=== PATIENT | female | born 1955 | race Caucasian/White ===

== ENCOUNTER 2016-10-15 07:47 | Observation (INO) | payer OTHER ==
[2016-10-15] VITALS (15 sets, daily range): BP systolic 148–192; BP diastolic 62–111; PULSE 70–80; TEMP 36.3–37; O2SAT 94–97; BMI 37.0; BMI 38.3
[~2016-10-15] VITALS: Ht 165.1 cm; Wt 104.5 kg
[~2016-10-15 07:47] MED LIST: ATOR-24 PO; FLNIN NAE; INSDGIPEN SC; LOSA1TAB PO; MELA1TAB5 PO; MELO7.5T5 PO; NVLGI SC; OMEP40CA PO; ONDA4TAB46 PO; POTA10TA PO; SERT25TA PO; SYN150 PO; TAMO20TA5 PO; [UNRECOGNIZED DRUG - CODE]
[2016-10-15] MEDS ORDERED: SERT-234 PO (08:37)
[2016-10-15] MEDS ORDERED: LVMI (08:37)
[2016-10-15] MEDS ORDERED: VNTHFA/IN INH (08:37)
[2016-10-15] MEDS ORDERED: LEVO175T3 PO (08:37)
[2016-10-15] MEDS ORDERED: NiCARDipine HCL INJ 2.5 MG/ML 10 ML AMP ONE (09:28)
[2016-10-15] MEDS ORDERED: HEPARIN SOD (PORCINE) 1000 UNIT/ML 10 ML VIAL ONE (09:28)
[2016-10-15] MEDS ORDERED: MIDAZOLAM HCL 1 MG/ML 2ML VIAL ONE ×2 (09:29→10:32)
[2016-10-15] MEDS ORDERED: NITROGLYCERIN/D5W 100MCG/ML 20ML SYR ONE (09:29)
[2016-10-15] MEDS ORDERED: FENTANYL CITRATE INJ 50 MCG/1 ML 2 ML VIAL ONE (09:29)
[2016-10-15] MEDS ORDERED: EPTIFIBATIDE 0.75 MG/ML 75MG VIAL IV ONE (10:37)
[2016-10-15] MEDS ORDERED: EPTIFIBATIDE 2 MG/ML 10 ML VIAL IV ONE (10:37)
--- NOTE | 2016-10-15 10:40 | History & Physical Bridge Note ---
H&P Re-Evaluation Bridge Note: I have examined the patient, reviewed the History & Physical and in the interval since the performance of the History & Physical I have noted the following changes of clinical significance: No changes noted
--- NOTE | 2016-10-15 10:41 | Procedure Note ---
Pre-Mod Sedation Assessment General Date of Moderate Sedation: October 15, 2016. Vital Signs: Vital Signs Past 12 Hours Date Time Temp Pulse Resp B/P Pulse Ox O2 Delivery O2 Flow Rate FiO2 10/15/16 08:26 36.3 73 16 192/62 96 Room Air Review Cardiovascular: regular rate, rhythm, no edema, no murmur Abdomen: normal bowel sounds, non tender, soft, no organomegaly Lungs: chest non-tender, lungs clear, normal breath sounds Pre-Sedation Airway Assessment Short Thick Neck: Yes Hx of Sleep Apnea: Yes Smoking Status: Former Smoker Mallampati Classification: Class III ASA Classification: Class III Procedure Planning Contraindications-for Mod Sed: None Yes Notes The planned sedation has been discussed with the patient and consent obtained. I have identified the patient, determined the appropriateness of sedation and have assessed the patient immediately prior to the procedure. All medicine(s) and interventions are by my order.
--- NOTE | 2016-10-15 10:41 | Procedure Note ---
Post-Mod Sedation Assessment General Date of Moderate Sedation October 15, 2016. Vital Signs: Vital Signs Past 12 Hours Date Time Temp Pulse Resp B/P Pulse Ox O2 Delivery O2 Flow Rate FiO2 10/15/16 08:26 36.3 73 16 192/62 96 Room Air Review - Discharge Criteria Vital Signs Stable: Yes Alert/Oriented/Conversant: Yes Returned to Baseline Mental St: Yes Nausea Absent/Minimal: Yes Pain/Discomfort/Absent/Minimal: Yes Normal/Baseline Respirations: Yes Active Bleeding?: No Pt Received D/C Instructions: N/A Prescriptions Given: None Specific Proced. D/C Criteria Distal Pulses Present (Cardiac: Yes Groin site assessed-Card Cath: N/A Voided Prior To Discharge: N/A Discharged Patients Adult Escort/Transportation: N/A
--- NOTE | 2016-10-15 10:44 | Cardiac Catheterization ---
Procedure Note Procedure Date October 15, 2016. Pre-Procedure Diagnosis Angina, Cardiothoracic Symptom AUC Score 8 Post-Procedure Diagnosis Severe CAD Procedure(s) Performed Coronary Angiography (Start time 0950, Stop time 1026) Apparel Merchandiser Dr. Webber Professor Of Astronomy(s) JAMESON VANCE. Monitoring sedation IKE Verdugo Estimated Blood Loss 5cc Medication(s) Fentanyl, Heparin, Nicardipine, Nitroglycerin, Versed, Lidocaine 1% Summary of Findings Severe Lcx OM disease Hemodynamics Rest Ao: 163/80/116 Final Ao: 163/82/116 LV: N/A Specimens None Radiation Exposure (mGy) 2017 Contrast (mls) 105 Anesthesia Moderate Sedation Procedural Complication(s) None Disposition Patient remained in laboratory chemical assistant for PCI ACC Data Cardiac Status Clinical evaluation leading to the procedure CAD Presntation: Unstable angina Anginal Classification: CCS III Heart Failure: No Cardiogenic Shock w/in 24Hrs: No Cardiac Arrest w/in 24Hrs: No Imaging studies past 6 months: Yes Stress studies past 6 months: No Coronary Anatomy Left Main (% Stenosis): Normal LAD (% Stenosis): Ostial (10%), Proximal (40%), Mid (10-20% diffuse), Distal ( 30%) D1 (% Stenosis): Ostial (Diffuse mild luminal irregularities 10%) Circumflex (% Stenosis): Ostial (Small vessel with diffuse mild luminal irregularities 10%) OM1 (% Stenosis): Ostial (0%), Proximal (80%), Mid (85%), Distal (40%) RCA (% Stenosis): Ostial (0%), Proximal (20%), Mid (30%) R PDA (% Stenosis): Ostial (Diffuse mild luminal irregularities 10%) R PL1 (% Stenosis): Ostial (Diffuse mild irregularities 1)%) R PL2 (% Stenosis): Ostial (diffuse mild luminal irregularities 10%) AM (% Stenosis): Normal Diagnostic Status: Elective Closure Device Percutaneous Entry Location: Radial Closure Device: Radial Band Recommendations: PCI without planned CABG Intraprocedure Events Significant Dissection: No Perforation: No
[2016-10-15] MEDS ORDERED: CLOPIDOGREL BISULFATE 300 MG TAB PO ONE (11:54)
[2016-10-15] MEDS ORDERED: ATROPINE SULFATE 0.1 MG/ML 5ML SYR IV PRN (12:15)
[2016-10-15] MEDS ORDERED: MoRPHine SULFATE 2 MG/ML CARP IV PRN (12:15)
[2016-10-15] MEDS ORDERED: MAGNESIUM HYDROXIDE SUSP 30 ML UDC PO PRN (12:15)
[2016-10-15] MEDS ORDERED: ALUMINUM/MAGNESIUM/SIMETH (MAALOX MAX) 30 ML UDC PO PRN (12:15)
[2016-10-15] MEDS ORDERED: EPTIFIBATIDE BOLUS / DRIP IV SCH (12:15)
[2016-10-15] MEDS ORDERED: NITROGLYCERIN 0.4 MG SL PER TAB CHARGE SL PRN (12:15)
[2016-10-15] MEDS ORDERED: ALBUTEROL HFA 8 GM INHALER INH PRN (12:15)
[2016-10-15] MEDS ORDERED: ONDANSETRON INJ 2 MG/ML 2 ML VIAL IV PRN (12:15)
--- NOTE | 2016-10-15 12:40 | Procedure Note ---
Post-Mod Sedation Assessment General Date of Moderate Sedation October 15, 2016. Vital Signs: Vital Signs Past 12 Hours Date Time Temp Pulse Resp B/P Pulse Ox O2 Delivery O2 Flow Rate FiO2 10/15/16 12:13 68 16 147/65 99 Room Air 10/15/16 12:10 70 16 138/82 99 Room Air 10/15/16 12:05 60 16 148/75 98 Room Air 10/15/16 11:58 62 16 152/78 98 Room Air 10/15/16 08:26 36.3 73 16 192/62 96 Room Air Review - Discharge Criteria Vital Signs Stable: Yes Alert/Oriented/Conversant: Yes Returned to Baseline Mental St: Yes Nausea Absent/Minimal: Yes Pain/Discomfort/Absent/Minimal: Yes Normal/Baseline Respirations: Yes Active Bleeding?: No Pt Received D/C Instructions: N/A Prescriptions Given: None Specific Proced. D/C Criteria Distal Pulses Present (Cardiac: Yes Groin site assessed-Card Cath: N/A Voided Prior To Discharge: N/A Discharged Patients Adult Escort/Transportation: N/A
--- NOTE | 2016-10-15 12:58 | Cardiac Catheterization ---
Procedure Note Procedure Date October 15, 2016. Pre-Procedure Diagnosis Acute Coronary Syndrome, Angina, CAD AUC Score 8 for PCI Post-Procedure Diagnosis Successful PCI Procedure(s) Performed Coronary Angiography, PTCA, Drug Eluting Stent Tar Processing Technician Dr. Love Network Operations Manager(s) RAJIV Priest Estimated Blood Loss 30 ml for PCI procedure Medication(s) Clopidogrel (600 mg PO post PCI), Fentanyl, Heparin, Integrilin, Nicardipine, Versed, Lidocaine 1% Summary of Findings Clinical indications: Patient has diabetes mellitus, dyslipidemia, and hypertension. She has had recently worsening dyspnea on exertion as well as new episodes of dyspnea at rest. She was seen as an outpatient by Dr. Webber . An ECG was performed and revealed new inferolateral ST T wave abnormalities consistent with ischemia. Because of her symptoms and the new ECG changes she underwent diagnostic cardiac catheterization today by Dr. Webber. This was performed via a 6 Lithuanian glide sheath in the right radial artery. It revealed 80 percent proximal mid segment stenoses in a prominent left circumflex marginal artery. There was no other significant coronary artery disease. PCI equipment: 5 Lithuanian EBU 3.5 guide catheter, Medtronic Olyphant XT J-tip guidewire, Medtronic Legend RX 2.0 x 15 millimeter balloon dilatation catheter, Medtronic Resolute Integrity 2.25 x 18 millimeter and 2.75 x 30 millimeter drug eluting stents, Medtronic NC Euphora 2.5 X 12 mm balloon dilatation catheter, Alvarez NC Trek 3.25 x 15 millimeter balloon dilatation catheter. PCI protocol: Intravenous heparin and Integrilin were administered prior to coronary intervention. A therapeutic activated clotting time was documented. PTCA was 1st performed to the mid left circumflex stenosis with the Medtronic Legend balloon dilatation catheter. One inflation to 8 atmospheres for 15 seconds. The balloon was withdrawn to the proximal segment of the marginal. Inflation was then performed to 14 atmospheres for 15 seconds. The 2.25 x 18 millimeter stent was then deployed in the mid left circumflex at a pressure of 12 atmospheres for 45 seconds. A 2nd inflation was performed with the stent delivery balloon to the stent to a pressure of 16 atmospheres for duration of 10 seconds. The 2.75 x 30 millimeter stent was then deployed in the proximal marginal at a pressure of 14 atmospheres for duration of 45 seconds. A 2nd inflation was performed with the stent delivery balloon to the stent to a pressure of 16 atmospheres for duration of 15 seconds. The mid stent was post dilated with the 2.5 x 12 millimeter noncompliant balloon. Two inflations to maximum pressure of 20 atmospheres and maximum duration of 20 seconds. Post stent deployment inflations performed to the proximal marginal stent with the NC Trek 3.25 x 15 millimeter balloon to a pressure of 15 atmospheres for duration of 15 seconds. Follow-up angiography was then performed from orthogonal projections with the guidewire in place and then with the guidewire withdrawn. The patient was hemodynamically stable throughout the procedure. No arrhythmias. She had no complaints of chest discomfort or dyspnea during the procedure. Hemostasis: Terumo TR band. Complications: None. Findings: Guiding angiography revealed a long proximal left circumflex marginal stenosis. Greatest luminal diameter narrowing 80 percent. The mid marginal had an eccentric 80 percent stenosis. ALESSANDRO 3 flow. Following stent deployment and post stent deployment noncompliant balloon inflations the residual stenosis in the proximal and mid left circumflex marginal was 0-10 percent. No evidence of dissection, thrombus, perforation, or distal embolic event. ALESSANDRO 3 flow throughout the circumflex. Plan: Admit for observation overnight. Intravenous Integrilin for 6 more hours. The patient was given a loading dose of clopidogrel 600 milligrams post PCI. She will remain on aspirin, atorvastatin, and losartan. Metoprolol succinate ER 25 milligrams daily. Post Integrilin CBC. Post procedure metabolic profile. IV fluids overnight. Education and discussion regarding her radiation exposure today. She had a total of over 5000 mGy of exposure today. Outpatient cardiology follow-up with Dr. Webber. Hemodynamics Rest Ao: 163/80/116 mm Hg Final Ao: 158/65/102 mm Hg Recommendations PCI without planned CABG Specimens None Radiation Exposure (mGy) 6222 total for both diagnostic and PCI procedure Contrast (mls) 290 ml Visipaque Fluids (cc crystalloids) 255 ml Drains none Anesthesia IV versed,fentanyl Procedural Complication(s) None Disposition PCU ACC Data Cardiac Status Clinical evaluation leading to the procedure CAD Presntation: Unstable angina Anginal Classification: CCS IV Heart Failure: No Cardiogenic Shock w/in 24Hrs: No Cardiac Arrest w/in 24Hrs: No Imaging studies past 6 months: No Standard Exercise Stress Test: No Stress Echocardiogram: No Stress Testing w/SPECT MPI: No Cardiac CTA: No Coronary Anatomy Dominant: Right (See diagnostic cath report by Dr. Webber) Left Ventricular Angiography EF (%): NA Diagnostic Physician's Name: Alessandro Webber DO Closure Device Percutaneous Entry Location: Radial Closure Device: Radial Band Recommendations: PCI without planned CABG PCI Indication: Unstable Angina Lesion Segment Name: proximal left circumflex marginal Culprit Artery: Yes Stenosis Prior to Rx (%): 80 Chronic Total Occlusion: No IVUS: No FFR: No Pre-Procedure ALESSANDRO Flow: 3 Previously Treated Lesion: No Lesion Complexity: High/C Lesion Length (mm): 24 Thrombus Present: No Bifurcation Lesion: No Guidewire Across Lesion: Yes Guidewire: Stenosis Post-Procedure (%): 0-10 Post-Procedure ALESSANDRO Flow: 3 Device(s) Deployed: Yes Type of Device(s): Medtronic Resolute Integrity 2.75 X 30 mm CARLOS. Post dilated with 3.25 X 15 mm NC Trek balloon. Lesion #2 Segment Name: mid left circumflex marginal Culprit Artery: Yes Stenosis Prior to Rx (%): 80 Chronic Total Occlusion: No IVUS: No FFR: No Pre-Procedure ALESSANDRO Flow: 3 Previously Treated Lesion: No Lesion Complexity: Non-High/Non-C Lesion Length (mm): 14 Thrombus Present: No Bifurcation Lesion: No Guidewire Across Lesion: Yes Guidewire: Stenosis Post-Procedure (%): 0-10 Post-Procedure ALESSANDRO Flow: 3 Device(s) Deployed: Yes Type of Device(s): Medtronic Resolute Integrity 2.25 X 18 mm CARLOS. Post dilated with a 2.5 X 12 mm NC Euphora balloon. Intraprocedure Events Significant Dissection: No Perforation: No
[2016-10-15] MEDS ORDERED: PHARMACY GLYCEMIC MGMT CONSULT PRN (13:42)
[2016-10-15] MEDS ORDERED: GLUCOSE 10 TABS/TUBE PO PRN (14:00)
[2016-10-15] MEDS ORDERED: IV FLUIDS COMPLETED PRN (14:00)
[2016-10-15] MEDS ORDERED: GLUCOSE 40% GEL 15 GM TUBE PO PRN (14:00)
[2016-10-15] MEDS ORDERED: DEXTROSE 50% 50 ML SYR IV PRN (14:00)
[2016-10-15] MEDS ORDERED: GLUCAGON FOR INJ 1 MG VIAL SQ PRN (14:00)
--- NOTE | 2016-10-15 14:09 | Pharmacy Progress Note ---
Glycemic Control Intl Consult Date of Service October 15, 2016. Scope Glycemic Pharmacist consulted by Dr Love on 10/15/16 for glycemic control and to write orders per [facility] inpatient glycemic control protocol Objective Weight (Kilograms): 104.5 Accuchecks BSG (last 24hrs): Test 10/15/16 12:10 10/15/16 12:57 Bedside Glucose 244 mg/dl (70-90) Laboratory Data (last 24hrs) Test 10/15/16 12:10 Recent Pertinent Medications Outpatient Anti-diabetic Regimen: * Levemir 70 units at bedtime; Novolog 12 units with meals (last took 35 units of Levemir last night) Risk Factors for Insulin Resistance: * IVF: Integrillin s/p PCI * Recent Surgery: POD 0 s/p PCI * Diet: type 2 diet Assessment & Plan ASSESSMENT: * ADA & AACE recommend a goal blood sugar range 140-180 mg/dl for the majority of critically ill & non-critically ill patients. However, more stringent targets may be selected in individual cases. Will utilize more stringent goal of 110-140mg/dl based on patient age & comorbidities. Additionally, tighter glycemic control is warranted to facilitate wound/infection healing as well as for cardiac health. * Ms Salas is a 61 y/o F admitted s/p PCI on 10/15/16. After an interview with her I learned her home regimen. She does not know her A1C and does not know the last time she missed a dose. She also does not have low blood sugars. * I will start Ms Salas on a regimen that is based upon her home insulin needs of 106 units/day. I decreased her Lantus by at least 20% since she will be receiving slightly more prandial coverage as an inpatient. I will start her Levemir with dinner since she only received half of her home dose yesterday. Also an 0200 accucheck will be added to ensure adequate glycemic control is achieved. Of note, she did not receive Novolog coverage with lunch so this indicates an earlier Levemir time may be appropriate. PLAN FOR INPATIENT GLYCEMIC CONTROL: * Basal insulin with Levemir 45-55 units SQ (45 units if blood sugar < 120 mg/dL ; 50 units if blood sugar 120-160 mg/dL; 55 units if blood sugar greater than 160 mg/dL) * Correctional Insulin with NOVOLOG per scale ACHS * Goal Range: Low 110 mg/dL - High 140 mg/dL * Correction Factor: 10 mg/dL/unit * Nutritional / Prandial insulin per carb ratio of 1 unit per 4 grams CHO consumed * Please note that the plan above was derived based on current level of insulin resistance and hospital stress. These recommendations are appropriate for inpatient admission only. Plan of care upon discharge will need to be reassessed to avoid potential outpatient hypo/hyperglycemia. Thank you.
[2016-10-15 14:14] LABS: BASO % 0.9 %; BASO ABS # 0.08 K/uL (0-0.2); EOS % 4.3 %; HEMATOCRIT 36.3 % (37-47); IG% 0.2 %; LYMPH % 40.3 %; MEAN CELL VOLUME 84.6 fL (80-100); MEAN PLATELET VOLUME 10.9 fL (7.4-10.4); NEUT % 45.3 %; PLATELET COUNT 253 K/uL (130-400); RED BLOOD COUNT 4.29 M/uL (4.2-5.4); WHITE BLOOD COUNT 8.93 K/uL (4.8-10.8)
[2016-10-15 14:34] LABS: BUN/CREATININE RATIO 17.8 (10-20); CALCIUM 8.2 mg/dl (8.5-10.1); CREATININE 1.1 mg/dl (0.60-1.20); POTASSIUM 4.3 mmol/L (3.5-5.1)
[2016-10-15] MEDS ORDERED: EPTIFIBATIDE INJ 75 MG PREMIXED IV SCH (14:45)
[2016-10-15] MEDS: SODIUM CHLORIDE 0.9% 1000ML 1,000 ML IV SCH ×2 (14:52→22:15)
[2016-10-15 15:10] LABS: COMPLETE YES
[2016-10-15] MEDS ORDERED: NURSING VERBAL MED ORDER ONE ×2 (15:15→18:15)
[2016-10-15] MEDS ORDERED: LOSARTAN POTASSIUM 50 MG TAB PO ONE (15:15)
[2016-10-15] MEDS ORDERED: INSULIN DETEMIR FLEXPEN/FLEX TOUCH 100 UNITS/ML 3ML SC SCH ×2 (17:00→21:00)
[2016-10-15] MEDS ORDERED: METOPROLOL SUCC 50MG EXT REL TAB PO STA (17:18)
[2016-10-15] MEDS: INSULIN ASPART 100 UNITS/ML 3 ML PEN SC SCH ×2 (17:40→20:42)
[2016-10-15] MEDS ORDERED: LORAZEPAM 2 MG/ML 1 ML VIAL IV PRN (18:00)
[2016-10-15] MEDS ORDERED: Integrelin infusion --> STOP ORDER ONE (18:00)
[2016-10-15] MEDS ORDERED: HydrALAZINE HCL 20 MG/ML VIAL IV. PRN (18:00)
[2016-10-15] MEDS ORDERED: LORAZEPAM INJ 1 MG in SYRINGE 0.5 ML IV PRN (18:15)
[2016-10-15] MEDS: CLONAZEPAM 0.5 MG TAB PO SCH (20:31)
[2016-10-15] MEDS ORDERED: ATORVASTATIN 40 MG TAB PO SCH (21:00)
[2016-10-15] MEDS ORDERED: PANTOprazole SOD 40 MG TAB PO SCH (21:00)
[2016-10-15] MEDS ORDERED: ASPIRIN 81 MG ECTAB PO SCH (21:00)
[2016-10-15] MEDS ORDERED: CHOLECALCIFEROL 1000 INTER.UNIT TAB PO SCH (21:00)
[2016-10-15] MEDS ORDERED: FLUTICASONE PROPIONATE NA SPR 16 GM BTL NAE SCH (21:00)
[2016-10-15] MEDS ORDERED: SERTRALINE HCL 100 MG TAB PO SCH (21:00)
[2016-10-15] MEDS: ACETAMINOPHEN 325 MG TAB PO PRN (21:48)
[2016-10-15] MEDS ORDERED: PROMETHAZINE HCL INJ 12.5 MG in SODIUM CHLORIDE 0.9% 50ML 50 ML IV PRN (22:30)
[2016-10-15] MEDS ORDERED: AMLODIPINE BESYLATE 5 MG TAB PO ONE (22:30)
[2016-10-15] MEDS ORDERED: PROMETHAZINE HCL INJ 12.5 MG in SODIUM CHLORIDE 0.9% 50ML 50 ML IV STA (22:48)
[2016-10-16 00:10] VITALS: BP 164/82; PULSE 82; TEMP 36.7; O2SAT 95
[2016-10-16] MEDS ORDERED: INSULIN ASPART 100 UNITS/ML 3 ML PEN SC SCH (02:00)
[2016-10-16 04:00] VITALS: BP 162/82; PULSE 72; TEMP 36.8; O2SAT 96
[2016-10-16] MEDS: INSULIN ASPART 100 UNITS/ML 3 ML PEN SC SCH ×4 (04:21→12:15)
[2016-10-16] MEDS ORDERED: LEVOTHYROXINE 175 MCG TAB PO SCH (06:00)
[2016-10-16 07:45] VITALS: BP 188/84; PULSE 93; TEMP 37; O2SAT 93
[2016-10-16] MEDS: SODIUM CHLORIDE 0.9% 1000ML 1,000 ML IV SCH (08:15)
[2016-10-16 08:20] LABS: ESTIMATED AVERAGE GLUCOSE 252 mg/dl; HA1C FLAG Normal (Normal)
[2016-10-16] MEDS ORDERED: METOPROLOL SUCC 50MG EXT REL TAB PO SCH (09:00)
[2016-10-16] MEDS ORDERED: LOSARTAN POTASSIUM 50 MG TAB PO SCH ×2 (09:00→21:00)
[2016-10-16] MEDS ORDERED: CHOLECALCIFEROL 1000 INTER.UNIT TAB PO SCH (09:00)
[2016-10-16] MEDS ORDERED: CLOPIDOGREL BISULFATE 75 MG TAB PO SCH (09:00)
[2016-10-16] MEDS ORDERED: AMLODIPINE BESYLATE 5 MG TAB PO SCH (09:00)
[2016-10-16] MEDS ORDERED: ASPIRIN 81 MG ECTAB PO SCH (09:00)
[2016-10-16] MEDS ORDERED: PANTOprazole SOD 40 MG TAB PO SCH (09:00)
[2016-10-16] MEDS ORDERED: SERTRALINE HCL 100 MG TAB PO SCH (09:00)
[2016-10-16] MEDS: CLONAZEPAM 0.5 MG TAB PO SCH (09:10)
[2016-10-16] MEDS ORDERED: AMLODIPINE BESYLATE 5 MG TAB PO ONE (09:15)
[2016-10-16] MEDS: ACETAMINOPHEN 325 MG TAB PO PRN (09:23)
--- NOTE | 2016-10-16 09:29 | Cardiology Follow-Up ---
Subjective Subjective Date of Service: October 16, 2016. Pt evaluation today including: conversation w/ patient, physical exam, chart review, lab review, review of studies, review of inpatient medication list Additional Details: Pt seen and examined, states that she's feeling ok. Called by nsyovani last pm with BS issues, I spoke with hospitalist, Dr. Rae, and asked her to evaluate patient. Bp elevated amlodipine ordered. Currently denies cp, sob, palpitations , lightheadedness or dizziness. Tele reviewed: sinus rhythm without arrhythmia or significant ectopy. Review of Systems Respiratory: No cough, No dyspnea at rest, No dyspnea on exertion, No hemoptysis, No problem reported, No see HPI, No shortness of breath, No sputum, No wheezing Cardiac: No PND, No chest pain, No claudication, No edema, No orthopnea, No palpitations, No problem reported, No see HPI Objective Vital Signs Last Vital Signs Documentation Date Time Temp Pulse Resp B/P Pulse Ox O2 Delivery O2 Flow Rate FiO2 10/16/16 07:45 37.0 93 18 188/84 93 Room Air Physical Exam: General Appearance: WD/WN, no apparent distress Eyes: bilateral eyes EOMI, bilateral eyes PERRL, bilateral eyes normal inspection ENT: normal ENT inspection, hearing grossly normal, pharynx normal Neck: supple, no adenopathy, thyroid normal, no JVD, no carotid bruits, trachea midline Respiratory/Chest: chest non-tender, lungs clear, normal breath sounds, no respiratory distress, no accessory muscle use Cardiovascular: regular rate, rhythm, no edema, no JVD, no murmur, + gallop/S4 Abdomen: normal bowel sounds, non tender, soft, no organomegaly Extremities: normal inspection, no pedal edema, no calf tenderness Neurologic/Psychiatric: 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 CAD s/p PCI to LCx tolerated well on asa, plavix, lipitor and metoprolol will d/c to home on these f/u with Dr. Webber as outpatient in 2-3 weeks 2. HTN elevated this AM will give AM meds and add amlodipine 5mg will hold d/c until controlled will likely d/c home with amlodipine in addition to previous meds 3. DM2 pharmacy following f/u with pcp as outpatient will d/c to home once bp controlled.
--- NOTE | 2016-10-16 10:29 | Progress Note ---
Progress Note Date of Service October 16, 2016. Progress Note BP now controlled pt without complaint will d/c to home
[2016-10-16] MEDS ORDERED: NRV5 PO (10:34)
[2016-10-16] MEDS ORDERED: PLV75 PO (10:34)
[2016-10-16] MEDS ORDERED: CARV3.122 PO (10:34)
--- NOTE | 2016-10-16 10:36 | Discharge Instructions ---
Discharge Instructions Date of Service October 16, 2016. Admission Reason for Admission: CAD Discharge Discharge Diagnosis / Problem: coronary artery disease Discharge Goals Goal(s): Improve function, Therapeutic intervention Activity Recommendations Activity Limitations: as noted below Lifting Limitations: no more than 5 pounds (with right hand for 1 week) Exercise/Sports Limitations: none May Resume Sexual Activity: after follow-up appointment Shower/Bathe: no limitations Driving or Machine Use: no limitations . Instructions / Follow-Up Instructions / Follow-Up Cardiology office to call with follow up in 2-4 weeks Current Hospital Diet Patient's current hospital diet: AHA Diet (Heart Healthy), Diabetes Type 2 Diet Discharge Diet Recommended Diet: Diabetes Type 2 Diet Pending Studies Studies pending at discharge: no Laboratory Results Hemoglobin A1c Test 10/16/16 06:20 Range/Units Estimated Average Glucose 252 mg/dl Hemoglobin A1c 10.4 H 4.5-5.6 % Medical Emergencies . Who to Call and When: Medical Emergencies: If at any time you feel your situation is an emergency, please call 911 immediately. . Non-Emergent Contact Non-Emergency issues call your: Primary Care Provider, Log Turner . . "Provider Documentation" section prepared by Deyvi Swartz. . VTE Core Measure Inpt VTE Proph given/why not?: Treatment not indicated
--- NOTE | 2016-10-16 10:55 | DISCHARGE SUMMARY ---
REASON FOR ADMISSION: Cardiac catheterization. HOSPITAL COURSE: Ms. Salas presented for outpatient elective cardiac catheterization on 10/15/[address] Webber. Cardiac catheterization revealed hemodynamically significant lesion of the proximal mid segment of the left circumflex. The patient underwent PCI with drug eluting stent placement x2 with Resolute Integrity 2.25 x 18 mm and 2.75 x 30 mm stents with successful revascularization. The patient was admitted to telemetry overnight. Pharmacy was consulted for blood sugar management. Her blood pressure was a little elevated and she was started on amlodipine 5 mg daily which she tolerated well with good response. On 10/16/2106 after her blood pressure was controlled the patient was symptom free and discharged to home. PROCEDURES: Diagnostic cardiac catheterization along with PCI with drug eluting stents x2 with Medtronic Resolute Integrity 2.25 x 18 mm and 2.75 x 20 mm to the circumflex artery. COMPLICATIONS: None. CONDITION ON DISCHARGE: Stable. FINAL DIAGNOSES: 1. Coronary artery disease status post PCI with drug eluting stent x2 to the circumflex. 2. Hypertension uncontrolled. 3. Diabetes. MEDICATIONS ON DISCHARGE: New prescription for amlodipine 5 mg daily and Plavix 75 mg daily. Otherwise the patient will continue her outpatient medications: 1. Coreg 3.125 mg b.i.d. 2. Lasix 20 mg daily. 3. Losartan 100 mg daily. 4. Atorvastatin 40 mg daily. 5. Aspirin 81 mg daily. 6. Flonase b.i.d. 7. Insulin as directed. 8. Prilosec 40 mg daily. 9. Zoloft 100 mg daily. 10. Klonopin 0.5 mg b.i.d. DRIVING RESTRICTIONS: The patient may resume driving. LIFTING RESTRICTIONS: The patient is to avoid lifting anything greater than 5 pounds with the right hand for over a week. DIET: Patient is to resume previous diabetic diet. ACTIVITY: As tolerated. MEDICAL FOLLOWUP: The patient will followup with Dr. Webber in 2-4 weeks. Our office will call to arrange.
[2016-10-16 11:35] VITALS: BP 150/82; PULSE 87; TEMP 36.8; O2SAT 96
--- NOTE | 2016-10-16 12:04 | Pharmacy Progress Note ---
Glycemic Control: Progress Nt Date of Service October 16, 2016. Scope Glycemic Pharmacist consulted by Dr Love on 10/15/16 for glycemic control and to write orders per [facility] inpatient glycemic control protocol. Objective Accuchecks BSG (last 24hrs): Test 10/15/16 12:57 10/15/16 13:51 10/15/16 16:15 10/15/16 20:16 Bedside Glucose 244 mg/dl (70-90) 256 mg/dl (70-90) 223 mg/dl (70-90) Random Glucose 257 mg/dl (70-99) Test 10/15/16 21:15 10/15/16 23:59 10/16/16 04:13 10/16/16 11:18 Bedside Glucose 150 mg/dl (70-90) 104 mg/dl (70-90) 175 mg/dl (70-90) 173 mg/dl (70-90) Laboratory Data (last 24hrs) Test 10/15/16 13:51 10/16/16 06:20 Anion Gap 4.0 mmol/L BUN/Creatinine Ratio 17.8 Blood Urea Nitrogen 20 mg/dl Creatinine 1.10 mg/dl Potassium Level 4.3 mmol/L Sodium Level 142 mmol/L White Blood Count 8.93 K/uL Red Blood Count 4.29 M/uL Hemoglobin 11.6 g/dL Hematocrit 36.3 % Mean Corpuscular Volume 84.6 fL Mean Corpuscular Hemoglobin 27.0 pg Mean Corpuscular Hemoglobin Concent 32.0 g/dl Platelet Count 253 K/uL Mean Platelet Volume 10.9 fL Neutrophils (%) (Auto) 45.3 % Lymphocytes (%) (Auto) 40.3 % Monocytes (%) (Auto) 9.0 % Eosinophils (%) (Auto) 4.3 % Basophils (%) (Auto) 0.9 % Neutrophils # (Auto) 4.05 K/uL Lymphocytes # (Auto) 3.60 K/uL Monocytes # (Auto) 0.80 K/uL Eosinophils # (Auto) 0.38 K/uL Basophils # (Auto) 0.08 K/uL Hemoglobin A1c 10.4 % HbA1c: Test 10/16/16 06:20 Hemoglobin A1c 10.4 % (4.5-5.6) H Recent Pertinent Medications Outpatient Anti-diabetic Regimen: * Levemir 70 units at bedtime; Novolog 12 units with meals (last took 35 units of Levemir last night) * A1c 10.4 % on 10/16/16 Risk Factors for Insulin Resistance: * Recent Surgery: POD 1 s/p PCI * Diet: type 2 diet Assessment & Plan ASSESSMENT: * ADA & AACE recommend a goal blood sugar range 140-180 mg/dl for the majority of critically ill & non-critically ill patients. However, more stringent targets may be selected in individual cases. Will utilize more stringent goal of 110-140mg/dl based on patient age & comorbidities. * Ms Salas is a 61 y/o F admitted s/p PCI on 10/15/16. * Patient was initiated on a regimen based upon her home insulin needs of 106 units/day with a 20% decrease in Lantus since she will be receiving slightly more prandial coverage as an inpatient. 10/16/16 * Hyperglycemia improving; BSGs ranged from 104 to 257 mg/dL yesterday. Fasting BSG today was 175 mg/dL. * Of note, bolus insulin parameters were loosened last evening due to rapid drop in BSG from 223 to 150 mg/dL over 1 hour. * Patient administered a partial dose of Lantus HAND BULLDOZER on 10/14 pm- I suspect this contributed to hyerglycemia yesterday. * We have not seen the effect of basal dose from last evening, therefore, I will continue the same Lantus dose and re-evaluate on 10/17. PLAN FOR INPATIENT GLYCEMIC CONTROL: * Continue Basal insulin with Levemir 45-55 units SQ * 45 units if blood sugar < 120 mg/dL * 50 units if blood sugar 120-160 mg/dL * 55 units if blood sugar greater than 160 mg/dL * Continue Bolus Insulin with NOVOLOG per scale ACHS * Goal Range: Low 110 mg/dL - High 140 mg/dL * Correction Factor: 20 mg/dL/unit * Nutritional / Prandial insulin per carb ratio of 7 unit per 4 grams CHO consumed * Continue overnight check due to uncertainty of insulin requirements at this time RECOMMENDATIONS FOR DISCHARGE: * awaited * Please note that the plan above was derived based on current level of insulin resistance and hospital stress. These recommendations are appropriate for inpatient admission only. Plan of care upon discharge will need to be reassessed to avoid potential outpatient hypo/hyperglycemia. Thank you.
[2016-10-16 12:05] VITALS: BP 150/82; PULSE 87; TEMP 36.8; O2SAT 96
[2016-10-16 12:47] VITALS: Ht 165.1 cm; Wt 104.5 kg
[2016-10-17] MEDS ORDERED: AMLODIPINE BESYLATE 5 MG TAB PO SCH (09:00)
[2016-10-30] MEDS ORDERED: LOSA1TAB38 PO (08:37)
[2016-10-30] MEDS ORDERED: PRLSR20 PO (08:37)
[2016-10-30] MEDS ORDERED: CHOL2000 PO (08:37)
[2016-10-30] MEDS ORDERED: FURO-85 PO (10:36)
[2016-10-30] MEDS ORDERED: SODICRE2 (14:19)
[2016-10-30] MEDS ORDERED: CLON0.5T3 PO (14:19)
[2016-10-30] MEDS ORDERED: ASPI81TA28 PO (14:19)
[2016-10-31] MEDS ORDERED: CRG625 PO (17:22)
== END 2016-10-16 12:50 | disposition home or self-care (01) ==
LOC: ENRESERVDT → ENRESERVTM → C.CATH 07:47 → C.2E 12:38
PROVIDERS: ADMIT Internal Medicine Cardiovascular Disease; ATTEND Internal Medicine Cardiovascular Disease
DX: I25.110 Atherosclerotic heart disease of native coronary artery with unstable angina pectoris (principal); I10 Essential (primary) hypertension; E78.5 Hyperlipidemia, unspecified; E03.9 Hypothyroidism, unspecified; F88 Other disorders of psychological development; E11.9 Type 2 diabetes mellitus without complications; G47.33 Obstructive sleep apnea (adult) (pediatric); Z83.3 Family history of diabetes mellitus; Z79.4 Long term (current) use of insulin; Z79.82 Long term (current) use of aspirin

== ENCOUNTER → 2016-10-29 | Outpatient (CLI) | payer OTHER ==
[~2016-10-29] VITALS: Ht 167 cm; Wt 106.6 kg
[~2016-10-29] MED LIST changes: +AMLO-110 PO; +ASPI81TA28 PO; +CAFF200T13 PO; +CARV3.122 PO; +CHOL2000 PO; +CLON0.5T3 PO; +CLOP1TAB15 PO; +CRG625 PO; +FLUT50SP45; +FURO-85 PO; -INSDGIPEN SC; +LEVO175T3 PO; -LOSA1TAB PO; +LOSA1TAB38 PO; +LVMI; +LVMI SQ; +MELA1TAB22 PO; -MELA1TAB5 PO; -MELO7.5T5 PO; +NRV5 PO; +NVLG SQ; -OMEP40CA PO; +PLV75 PO; +PRLSR20 PO; +SERT-234 PO; -SERT25TA PO; +SODICRE2; -SYN150 PO; -TAMO20TA5 PO; +VNTHFA/IN INH
[2016-10-29 15:38] VITALS: BP_DIAS 90
[2016-10-29 15:45] VITALS: Ht 167 cm; Wt 106.6 kg
== END | disposition home or self-care (01) ==
LOC: C.NRED 14:00
PROVIDERS: ATTEND Internal Medicine
DX: Z71.89 Other specified counseling (principal)

== ENCOUNTER 2016-10-30 16:35 | Inpatient (IN) | payer OTHER ==
[~2016-10-30] VITALS: Ht 165.1 cm; Wt 105.2 kg
[~2016-10-30 16:35] MED LIST changes: -AMLO-110 PO; -CAFF200T13 PO; -CLOP1TAB15 PO; -CRG625 PO; -FLUT50SP45; -LVMI SQ; -MELA1TAB22 PO; -NVLG SQ; -ONDA4TAB46 PO
[2016-10-30 16:57] LABS: BASO % 1.1 %; COMPLETE YES; EOS % 3.4 %; IG% 0.2 %; LYMPH % 33.6 %; LYMPH ABS # 2.98 K/uL (1.2-3.4); MEAN CELL VOLUME 83.9 fL (80-100); MEAN CORPUSCULAR HEMOGLOBIN 26.9 pg (25-34); MEAN CORPUSCULAR HGB CONC 32.1 g/dl (32-36); MEAN PLATELET VOLUME 10.5 fL (7.4-10.4); MONO % 9.3 %; NEUT % 52.4 %; PLATELET COUNT 337 K/uL (130-400); RED BLOOD COUNT 4.65 M/uL (4.2-5.4); WHITE BLOOD COUNT 8.86 K/uL (4.8-10.8)
[2016-10-30 17:14] LABS: BUN/CREATININE RATIO 22.6 (10-20); CALCIUM 8.7 mg/dl (8.5-10.1); CREATININE 0.89 mg/dl (0.60-1.20); POTASSIUM 4.1 mmol/L (3.5-5.1)
[2016-10-30] MEDS ORDERED: CAFF200T13 PO (17:40)
[2016-10-30] MEDS ORDERED: FLUT50SP45 (17:40)
[2016-10-30] MEDS ORDERED: LVMI SQ (17:40)
[2016-10-30] MEDS ORDERED: CARV3.122 PO (17:40)
[2016-10-30] MEDS ORDERED: MELA1TAB22 PO (17:40)
[2016-10-30] MEDS ORDERED: AMLO-110 PO (17:40)
[2016-10-30] MEDS ORDERED: CLOP1TAB15 PO (17:40)
[2016-10-30] MEDS ORDERED: NVLG SQ (17:40)
[2016-10-30] MEDS ORDERED: ONDA4TAB46 PO (17:41)
--- NOTE | 2016-10-30 17:46 | DIAGNOSTIC IMAGING REPORT ---
CHEST ONE VIEW PORTABLE CLINICAL HISTORY: Chest pain. COMPARISON STUDY: Chest radiograph October 04, 2009. FINDINGS: Lung volumes are normal. There is no pneumothorax or pleural effusion. Mild cardiomegaly is unchanged. There is no evidence of pulmonary edema. The appearance of the chest is unchanged. Hazy bibasilar opacities likely reflect atelectasis. IMPRESSION: 1. No acute cardiopulmonary findings. 2. Mild bibasilar opacities which favor atelectasis. 3. Mild cardiomegaly without evidence of pulmonary edema. Electronically signed by: Ruddy Valerio M.D. 10/30/2016 5:44 PM Dictated Date/Time: 10/30/2016 5:40 PM
[2016-10-30] MEDS ORDERED: LABETALOL HCL IV 5 MG/ML 20ML IV STA (18:09)
--- NOTE | 2016-10-30 18:10 | EMERGENCY ROOM VISIT NOTE ---
History Report prepared by Aldo: Denis Clay Under the Supervision of: Dr. Camilo Cano M.D. First contact with patient: 16:43 Chief Complaint: CHEST PAIN Stated Complaint: CHEST PAIN History of Present Illness The patient is a 61 year old female who presents to the Emergency Room with complaints of intermittent left sided chest pain beginning yesterday. She states that her pain was present every 15 minutes or so yesterday. She had a cardiac catheterization a few weeks ago and had two stents placed. The patient denies any pain radiation. She denies any LOC, SOB, back pain, abdominal pain, neck pain, or headache. She was referred to the ED by her PCP. Source of History: patient Onset: Yesterday Position: chest (left) Symptom Intensity: every 15 minutes Timing: intermittent Associated Symptoms: No LOC, No headache, No neck pain, No SOB, No abdominal pain, No back pain Review of Systems See HPI for pertinent positives & negatives. A total of 10 systems reviewed and were otherwise negative. Past Medical & Surgical Medical Problems: (1) CAD S/P percutaneous coronary angioplasty (2) High cholesterol (3) Unstable angina Family History Diabetes mellitus Social History Smoking Status: Current Every Day Smoker Marital Status: Housing Status: lives with family Occupation Status: employed Current/Historical Medications Scheduled Albuterol Hfa (Ventolin Hfa), 2-4 PUFFS INH Q6H Amlodipine (Norvasc), 5 MG PO QPM Aspirin (Aspirin Ec), 81 MG PO QPM Atorvastatin (Lipitor), 1 TAB PO HS Carvedilol (Coreg), 1 TAB PO BID Cholecalciferol (Vitamin D3), 1 CAP PO DAILY Clonazepam (Klonopin), 0.5 MG PO BID Clopidogrel (Plavix), 75 MG PO QPM Fluticasone Propionate (Nasal) (Allergy Nasal [place] 24 Ho), 2 SPRY NA QPM Furosemide (Lasix), 20 MG PO DAILY Insulin Aspart (Novolog), 12 UNITS SQ AC Insulin Detemir (Levemir), 70 UNITS SQ QPM Levothyroxine Sodium (Levothyroxine Sodium), 1 TAB PO DAILY Losartan Potassium (Cozaar), 1 TAB PO DAILY Melatonin-Pyridoxine (Melatonin), 5 MG PO HS Omeprazole (Prilosec), 40 MG PO DAILY Potassium Chloride (K-Tabs), 20 MEQ PO DAILY Sertraline (Zoloft), 1 TAB PO QPM Sodium Fluoride (Dental) (Denta 5000 Plus), 1 APPL DIRECTED Scheduled PRN Caffeine (Caffeine), 100 MG PO DAILY PRN for Ondansetron Hcl (Zofran), 4 MG PO for Nausea Allergies Coded Allergies: Adhesives (Verified Allergy, Unknown, SKIN WELTS/PRURITIS, 11/14/15) Metformin (Verified Adverse Reaction, Unknown, DIARRHEA, 11/14/15) Physical Exam Vital Signs Date Time Temp Pulse Resp B/P (MAP) Pulse Ox O2 Delivery O2 Flow Rate FiO2 10/30/16 18:20 66 95 10/30/16 18:15 66 96 10/30/16 18:10 65 97 10/30/16 18:08 190/90 10/30/16 18:05 66 96 10/30/16 18:02 198/80 10/30/16 18:00 67 95 10/30/16 17:55 67 95 10/30/16 17:50 66 95 10/30/16 17:45 65 97 10/30/16 17:40 67 95 10/30/16 17:35 62 21 97 10/30/16 17:32 173/84 10/30/16 17:30 66 17 94 10/30/16 17:25 66 14 94 10/30/16 17:20 71 19 97 10/30/16 17:15 73 22 96 10/30/16 17:10 74 20 93 10/30/16 17:05 69 18 95 10/30/16 17:03 164/83 10/30/16 17:00 68 20 95 10/30/16 16:59 97 Room Air 10/30/16 16:59 95 Room Air 10/30/16 16:55 70 14 95 10/30/16 16:53 36.9 70 18 181/86 96 Room Air 10/30/16 16:50 68 17 96 10/30/16 16:45 72 17 96 10/30/16 16:45 70 10/30/16 16:39 181/86 Physical Exam GENERAL: Patient is well appearing and in no acute distress. HEENT: No acute trauma, normocephalic atraumatic, mucous membranes moist, no nasal congestion, no scleral icterus. NECK: No stridor, no adenopathy, no meningismus, trachea is midline. LUNGS: No dyspnea. Clear to auscultation and equal bilaterally. No wheeze, no rhonchi. HEART: Regular rate and rhythm. No murmurs, rubs, gallops appreciated. ABDOMEN: Soft, nontender, bowel sounds positive, no masses appreciated, no peritonitis. BACK: No midline tenderness, no CVA tenderness EXTREMITIES: Normal motion all extremities, no cyanosis, no edema. NEUROLOGIC: Alert and oriented, no acute motor or sensory deficits, no focal weakness, cranial nerves grossly intact. SKIN: No rash, no jaundice, no diaphoresis. Medical Decision & Procedures ER Provider Diagnostic Interpretation: X ray results are stated below per my interpretation and the radiologist's interpretation. CHEST ONE VIEW PORTABLE FINDINGS: Lung volumes are normal. There is no pneumothorax or pleural effusion. Mild cardiomegaly is unchanged. There is no evidence of pulmonary edema. The appearance of the chest is unchanged. Hazy bibasilar opacities likely reflect atelectasis. IMPRESSION: 1. No acute cardiopulmonary findings. 2. Mild bibasilar opacities which favor atelectasis. 3. Mild cardiomegaly without evidence of pulmonary edema. Electronically signed by: Ruddy Valerio M.D. Laboratory Results 10/30/16 16:25 Red Blood Count 4.65, Mean Corpuscular Volume 83.9, Mean Corpuscular Hemoglobin 26.9, Mean Corpuscular Hemoglobin Concent 32.1, Mean Platelet Volume 10.5, Neutrophils (%) (Auto) 52.4, Lymphocytes (%) (Auto) 33.6, Monocytes (%) (Auto) 9.3, Eosinophils (%) (Auto) 3.4, Basophils (%) (Auto) 1.1, Neutrophils # (Auto) 4.64, Lymphocytes # (Auto) 2.98, Monocytes # (Auto) 0.82, Eosinophils # (Auto) 0.30, Basophils # (Auto) 0.10 10/30/16 16:25 Test 10/30/16 16:25 White Blood Count 8.86 K/uL (4.8-10.8) Red Blood Count 4.65 M/uL (4.2-5.4) Hemoglobin 12.5 g/dL (12.0-16.0) Hematocrit 39.0 % (37-47) Mean Corpuscular Volume 83.9 fL (80-100) Mean Corpuscular Hemoglobin 26.9 pg (25-34) Mean Corpuscular Hemoglobin Concent 32.1 g/dl (32-36) Platelet Count 337 K/uL (130-400) Mean Platelet Volume 10.5 fL (7.4-10.4) Neutrophils (%) (Auto) 52.4 % Lymphocytes (%) (Auto) 33.6 % Monocytes (%) (Auto) 9.3 % Eosinophils (%) (Auto) 3.4 % Basophils (%) (Auto) 1.1 % Neutrophils # (Auto) 4.64 K/uL (1.4-6.5) Lymphocytes # (Auto) 2.98 K/uL (1.2-3.4) Monocytes # (Auto) 0.82 K/uL (0.11-0.59) Eosinophils # (Auto) 0.30 K/uL (0-0.5) Basophils # (Auto) 0.10 K/uL (0-0.2) RDW Standard Deviation 39.5 fL (36.4-46.3) RDW Coefficient of Variation 13.0 % (11.5-14.5) Immature Granulocyte % (Auto) 0.2 % Immature Granulocyte # (Auto) 0.02 K/uL (0.00-0.02) Prothrombin Time 9.4 SECONDS (9.0-12.0) Prothromb Time International Ratio 0.9 (0.9-1.1) Activated Partial Thromboplast Time 24.7 SECONDS (21.0-31.0) Partial Thromboplastin Ratio 1.0 Anion Gap 6.0 mmol/L (3-11) Est Creatinine Clear Calc Drug Dose 80.1 ml/min Estimated GFR () 81.1 Estimated GFR (Non- 70.0 BUN/Creatinine Ratio 22.6 (10-20) Calcium Level 8.7 mg/dl (8.5-10.1) Laboratory results as reviewed by me. Medications Administered Medications (Trade) Dose Ordered Sig/Duc Route Start Time Stop Time Status Last Admin Dose Admin Labetalol HCl (Normodyne IV) 10 mg NOW STAT IV 10/30/16 18:09 10/30/16 18:10 DC 10/30/16 18:22 10 MG ECG Indication: chest pain Rate (beats per minute): 68 Rhythm: normal sinus Findings: T-wave inversion (Lead I), no acute ischemic change, no ectopy Comparison ECG Date: October 15, 2016 Change: no significant change ED Course 1646: The patient was evaluated in room B11. A complete history and physical exam was performed. 180: Upon reevaluation, the patient is resting comfortably. Discussed results and treatment plan with the patient. She verbalized understanding and agreement with the treatment plan. The patient will be evaluated for further management. Medical Decision Differential: Cardiac Ischemia (STEMI, NSTEMI, Unstable Angina, etc), Aortic Dissection, Arrhythmia, Pulmonary Embolism, Pneumonia, Pneumothorax, MSK, Infectious, Pericarditis/Myocarditis, Esophageal Rupture, Gastrointestinal, amongst other pathologies entertained. 61 yr old female arrives from clinic for evaluation of EKG changes 1 week post CARLOS x 2 with cath. No evidence STEMI. EKG here similar to previous. Reviewed with her host and hostess who notes there were acute changes on EKG at clinic. Trop wnl though non-negative. Labs otherwise look good. She is quite hypertensive though she states she did take her bp meds today. Given IV labetalol for control. Consular Officer requests patient be brought in to hospital for further evaluation/treatment with possible cath/stress tomorrow. Consults Time Called: [phone] Consulting Physician: Dr. Webber Cardiology Returned Call: [phone] Discussed the patient's case. Dr. Webber states that the patient's ECG changes are acute and that she should be hospitalized for further evaluation. Additional Consults: Time Called: 1800 Consulted Physician: Dr. Dannie Fajardo Returned Call: [phone] Additional Comments: Discussed the patient's case. The patient will be evaluated for further treatment and disposition. Impression Primary Impression: Left sided chest pain Additional Impressions: Intermittent chest pain Hypertension Scribe Attestation The scribe's documentation has been prepared under my direction and personally reviewed by me in its entirety. I confirm that the note above accurately reflects all work, treatment, procedures, and medical decision making performed by me. Departure Information Dispostion Being Evaluated By Hospitalist Referrals Dennis Hennessy D.O. (PCP) Patient Instructions My [facility] Problem Qualifiers
[2016-10-30] MEDS ORDERED: NITROGLYCERIN 0.4 MG SL PER TAB CHARGE SL PRN (18:30)
[2016-10-30] MEDS ORDERED: POLYETHYLENE (MIRALAX) 17 GM PACK PO PRN (18:30)
[2016-10-30] MEDS ORDERED: ONDANSETRON INJ 2 MG/ML 2 ML VIAL IV PRN (18:30)
[2016-10-30] MEDS ORDERED: ACETAMINOPHEN 325 MG TAB PO PRN (18:30)
[2016-10-30] MEDS ORDERED: ALBUTEROL HFA 8 GM INHALER INH PRN (18:30)
[2016-10-30] MEDS ORDERED: ZOLPIDEM TARTRATE 5 MG TAB PO PRN (18:30)
--- NOTE | 2016-10-30 18:44 | History and Physical ---
History & Physical Date & Time of Service: Oct 30, 2016 at 18:36 Chief Complaint: Chest Pain Primary Care Physician: Dennis Hennessy D.O. History of Present Illness Source: patient The patient is a 61 year old female with PMH of CAD s/p stent , HTN, DM , Obesity who presents to the Emergency Room with complaints of intermittent left sided chest pain beginning yesterday. Patient had a recent elective cardiac catheterization done in [facility] on 10/15/16- which showed significant stenosis in left circumflex, had 2 CARLOS placed. She was doing well post cath, till yesterday when had chest pain, left sided- sharp, lasting for few seconds but recurring every 15 minutes. Not associated with SOB , sweating, palpitations, diaphoresis, nausea or vomiting. No leg swelling, abd pain, fever, chills. Per her, does take all her medications regularly. Did not take her amlodipine today AM. She saw Dr Webber for her post cath follow up visit when EKG was done which showed T wave inversions in leads I, aVL which were new and thus was referred to ED for admission and further evaluation. In ED, her BP is in 180s, received IV Labetalol 10 mg for BP --> down to 160/ 59. Denies any chest pain now. EKG- shows T wave inversions in leads I , Avl, First troponin- negative, CXR- atelectasis, no acute abnormalities. ER physician spoke to Dr Webber. Will admit her for chest pain with new EKG changes S/P recent cardiac cath for further evaluation and mx. Past Medical/Surgical History Medical Problems: (1) High cholesterol Status: Chronic Family History Diabetes mellitus Social History Smoking Status: Current Every Day Smoker Marital Status: Housing status: lives alone Occupational Status: employed Immunizations History of Influenza Vaccine: No Allergies Coded Allergies: Adhesives (Verified Allergy, Unknown, SKIN WELTS/PRURITIS, 11/14/15) Metformin (Verified Adverse Reaction, Unknown, DIARRHEA, 11/14/15) Home Medications Scheduled Albuterol Hfa (Ventolin Hfa), 2-4 PUFFS INH Q6H Amlodipine (Norvasc), 5 MG PO QPM Aspirin (Aspirin Ec), 81 MG PO QPM Atorvastatin (Lipitor), 1 TAB PO HS Carvedilol (Coreg), 1 TAB PO BID Cholecalciferol (Vitamin D3), 1 CAP PO DAILY Clonazepam (Klonopin), 0.5 MG PO BID Clopidogrel (Plavix), 75 MG PO QPM Fluticasone Propionate (Nasal) (Allergy Nasal [place] 24 Ho), 2 SPRY NA QPM Furosemide (Lasix), 20 MG PO DAILY Insulin Aspart (Novolog), 12 UNITS SQ AC Insulin Detemir (Levemir), 70 UNITS SQ QPM Levothyroxine Sodium (Levothyroxine Sodium), 1 TAB PO DAILY Losartan Potassium (Cozaar), 1 TAB PO DAILY Melatonin-Pyridoxine (Melatonin), 5 MG PO HS Omeprazole (Prilosec), 40 MG PO DAILY Potassium Chloride (K-Tabs), 20 MEQ PO DAILY Sertraline (Zoloft), 1 TAB PO QPM Sodium Fluoride (Dental) (Denta 5000 Plus), 1 APPL DIRECTED Scheduled PRN Caffeine (Caffeine), 100 MG PO DAILY PRN for Ondansetron Hcl (Zofran), 4 MG PO for Nausea Review of Systems Constitutional: No fever, No chills Eyes: No worsening of vision ENT: No hearing loss, No nasal symptoms Respiratory: No cough, No sputum, No wheezing, No shortness of breath Cardiovascular: + chest pain, No edema, No palpitations Abdomen: No pain, No nausea, No vomiting, No diarrhea, No constipation, No GI bleeding Musculoskeletal: No swelling Genitourinary - Female: No dysuria, No urinary frequency Neurologic: No memory loss, No paralysis, No weakness Psychiatric: No depression symptoms Endocrine: No fatigue Hematologic / Lymphatic: No abnormal bleeding/bruising Integumentary: No rash Physical Exam Vital Signs Date Time Temp Pulse Resp B/P (MAP) Pulse Ox O2 Delivery O2 Flow Rate FiO2 10/30/16 17:50 66 95 10/30/16 17:45 65 97 10/30/16 17:40 67 95 10/30/16 17:35 62 21 97 10/30/16 17:32 173/84 10/30/16 17:30 66 17 94 10/30/16 17:25 66 14 94 10/30/16 17:20 71 19 97 10/30/16 17:15 73 22 96 10/30/16 17:10 74 20 93 10/30/16 17:05 69 18 95 10/30/16 17:03 164/83 10/30/16 17:00 68 20 95 10/30/16 16:59 97 Room Air 10/30/16 16:59 95 Room Air 10/30/16 16:55 70 14 95 10/30/16 16:53 36.9 70 18 181/86 96 Room Air 10/30/16 16:50 68 17 96 10/30/16 16:45 72 17 96 10/30/16 16:45 70 10/30/16 16:39 181/86 General Appearance: no apparent distress, + obese Head: normocephalic, atraumatic Eyes: PERRL ENT: hearing grossly normal Neck: supple, no JVD Respiratory/Chest: chest non-tender, lungs clear, normal breath sounds, no respiratory distress, no accessory muscle use Cardiovascular: regular rate, rhythm, no edema, no murmur Abdomen/GI: normal bowel sounds, non tender, soft Extremities/Musculoskelatal: no calf tenderness, no pedal edema, non-tender Neurologic/Psych: no motor/sensory deficits, alert, oriented x 3 Skin: normal color Diagnostics Laboratory Results Results Past 24 Hours Test 10/30/16 16:25 Range/Units White Blood Count 8.86 4.8-10.8 K/uL Red Blood Count 4.65 4.2-5.4 M/uL Hemoglobin 12.5 12.0-16.0 g/dL Hematocrit 39.0 37-47 % Mean Corpuscular Volume 83.9 80-100 fL Mean Corpuscular Hemoglobin 26.9 25-34 pg Mean Corpuscular Hemoglobin Concent 32.1 32-36 g/dl Platelet Count 337 130-400 K/uL Mean Platelet Volume 10.5 7.4-10.4 fL Neutrophils (%) (Auto) 52.4 % Lymphocytes (%) (Auto) 33.6 % Monocytes (%) (Auto) 9.3 % Eosinophils (%) (Auto) 3.4 % Basophils (%) (Auto) 1.1 % Neutrophils # (Auto) 4.64 1.4-6.5 K/uL Lymphocytes # (Auto) 2.98 1.2-3.4 K/uL Monocytes # (Auto) 0.82 0.11-0.59 K/uL Eosinophils # (Auto) 0.30 0-0.5 K/uL Basophils # (Auto) 0.10 0-0.2 K/uL RDW Standard Deviation 39.5 36.4-46.3 fL RDW Coefficient of Variation 13.0 11.5-14.5 % Immature Granulocyte % (Auto) 0.2 % Immature Granulocyte # (Auto) 0.02 0.00-0.02 K/uL Sodium Level 144 136-145 mmol/L Potassium Level 4.1 3.5-5.1 mmol/L Chloride Level 107 98-107 mmol/L Carbon Dioxide Level 31 21-32 mmol/L Anion Gap 6.0 3-11 mmol/L Blood Urea Nitrogen 20 7-18 mg/dl Creatinine 0.89 0.60-1.20 mg/dl Est Creatinine Clear Calc Drug Dose 80.1 ml/min Estimated GFR () 81.1 Estimated GFR (Non- 70.0 BUN/Creatinine Ratio 22.6 10-20 Random Glucose 114 70-99 mg/dl Calcium Level 8.7 8.5-10.1 mg/dl Troponin I 0.020 0-0.045 ng/ml Diagnostic Radiology CXR- Atelectasis, no acute abnormalities EKG- reviewed- NSR, T wave inversion in leads I, AVL- new compared to prior EKG Impression Assessment and Plan Patient was sent from Dr Webber office for new EKG changes, atypical chest pain with recent cardiac catheterization on 10/15/16 with PCI- 2 CARLOS. ASSESSMENT AND PLAN: CHEST PAIN, ATYPICAL WITH NEW EKG CHANGES Patient had recent cardiac catheterization, elective in [facility] on 10/15/16- had stenosis in left circumflex with 2 CARLOS placed. Had chest pain, multiple episodes, lasting for few seconds yesterday, saw Dr Webber at office today and was noted to have EKG changes- new - T wave inversion in l, avl and thus was sent to ER for further evaluation. Per her, takes her medications regularly. -EKG in ED shows- similar changes, Chest pain free, Troponin x 1 negative -Troponin x 3, EKG in AM -Continue with Aspirin 81 mg, Plavix 75 mg, Coreg 3.125 mg PO BID, Atorvastatin 40 mg, Losartan. -Cardiology on board. HYPERTENSION, UNCONTROLLED BP in 180s in ED. Did not take her amlodipine in AM -Received IV Labetalol 10 mg x 1 dose---> now BP down to 160/59. -Continue with Coreg 3.125 mg PO BID, Amlodipine (give one dose now), Losartan -Monitor DM-2, IDDM, Uncontrolled -At home: Insulin levemir 70 units and Novolog. Will hold off Novolog. Continue with basal and ISS -Accuchecks, ISS -Recent HBA1C 10.4 - 10/16/16 OBESITY Weight loss advised DVT PROPHYLAXIS Lovenox SQ DISPOSITION Admit to telemetry - Level of Care Telemetry Resuscitation Status FULL RESUSCITATION VTE Prophylaxis VTE Risk Assessment Done? Y/N: Yes Risk Level: Moderate Given or contraindicated: Enoxaparin (Lovenox)SQ
[2016-10-30 19:00] VITALS: BP 168/81; PULSE 67; TEMP 36.5; O2SAT 95; Ht 165.1 cm; Wt 105.2 kg
[2016-10-30] MEDS ORDERED: GLUCOSE 10 TABS/TUBE PO PRN (19:00)
[2016-10-30] MEDS ORDERED: GLUCOSE 40% GEL 15 GM TUBE PO PRN (19:00)
[2016-10-30] MEDS ORDERED: DEXTROSE 50% 50 ML SYR IV PRN (19:00)
[2016-10-30] MEDS ORDERED: GLUCAGON FOR INJ 1 MG VIAL SQ PRN (19:00)
[2016-10-30] MEDS ORDERED: AMLODIPINE BESYLATE 5 MG TAB PO ONE (19:30)
[2016-10-30 19:39] LABS: INR 0.9 (0.9-1.1); PROTHROMBIN TIME (PATIENT) 9.4 SECONDS (9.0-12.0)
[2016-10-30] MEDS ORDERED: ENOXAPARIN 40 MG/0.4 ML SYR SC SCH (20:00)
[2016-10-30 20:38] VITALS: BP 152/81; PULSE 75
[2016-10-30] MEDS: INSULIN ASPART 100 UNITS/ML 3 ML PEN SC SCH ×2 (20:39→21:39)
[2016-10-30] MEDS ORDERED: CLOPIDOGREL BISULFATE 75 MG TAB PO SCH (21:00)
[2016-10-30] MEDS ORDERED: SERTRALINE HCL 100 MG TAB PO SCH (21:00)
[2016-10-30] MEDS ORDERED: MELATONIN PYRIDOXINE 5 MG PO SCH (21:00)
[2016-10-30] MEDS ORDERED: ASPIRIN 81 MG ECTAB PO SCH (21:00)
[2016-10-30] MEDS ORDERED: ATORVASTATIN 20 MG TAB PO SCH (21:00)
[2016-10-30] MEDS ORDERED: INSULIN DETEMIR SC SCH (21:00)
[2016-10-30] MEDS ORDERED: FLUTICASONE PROPIONATE NA SPR 16 GM BTL SCH (21:00)
[2016-10-30] MEDS: CARVEDILOL 3.125 MG TAB PO SCH (21:34)
[2016-10-30] MEDS: CLONAZEPAM 0.5 MG TAB PO SCH (21:40)
[2016-10-30] MEDS ORDERED: NURSING VERBAL MED ORDER ONE (21:45)
[2016-10-30 23:52] VITALS: BP 149/57; PULSE 78; TEMP 36.6; O2SAT 93
[2016-10-31 04:00] VITALS: BP 148/72; PULSE 78; TEMP 36.7; O2SAT 96
[2016-10-31 05:15] LABS: HEMATOCRIT 34.9 % (37-47); MEAN CELL VOLUME 84.7 fL (80-100); MEAN CORPUSCULAR HEMOGLOBIN 27.9 pg (25-34); MEAN PLATELET VOLUME 10.8 fL (7.4-10.4); PLATELET COUNT 270 K/uL (130-400); RED BLOOD COUNT 4.12 M/uL (4.2-5.4); WHITE BLOOD COUNT 9.24 K/uL (4.8-10.8)
[2016-10-31 05:24] LABS: BUN/CREATININE RATIO 25.8 (10-20); CALCIUM 8.4 mg/dl (8.5-10.1); CREATININE 0.89 mg/dl (0.60-1.20)
[2016-10-31] MEDS ORDERED: LEVOTHYROXINE 175 MCG TAB PO SCH (06:00)
[2016-10-31 08:00] VITALS: O2SAT 96
[2016-10-31 08:02] VITALS: BP 173/69; PULSE 72; TEMP 36.8; O2SAT 95
[2016-10-31] MEDS: INSULIN ASPART 100 UNITS/ML 3 ML PEN SC SCH ×3 (08:41→17:07)
[2016-10-31] MEDS: CLONAZEPAM 0.5 MG TAB PO SCH ×2 (08:47→09:00)
[2016-10-31] MEDS: CARVEDILOL 3.125 MG TAB PO SCH (08:56)
[2016-10-31] MEDS ORDERED: POTASSIUM CHLORIDE 20 MEQ TABCR PO SCH (09:00)
[2016-10-31] MEDS ORDERED: PANTOprazole SOD 40 MG TAB PO SCH (09:00)
[2016-10-31] MEDS ORDERED: FUROSEMIDE 20 MG TAB PO SCH (09:00)
[2016-10-31] MEDS ORDERED: CHOLECALCIFEROL 1000 INTER.UNIT TAB PO SCH (09:00)
[2016-10-31] MEDS ORDERED: LOSARTAN POTASSIUM 50 MG TAB PO SCH (09:00)
[2016-10-31] MEDS ORDERED: AMLODIPINE BESYLATE 5 MG TAB PO ONE (09:00)
[2016-10-31] MEDS ORDERED: CLOPIDOGREL BISULFATE 75 MG TAB PO ONE (09:15)
--- NOTE | 2016-10-31 10:14 | CARDIOLOGY CONSULTATION ---
DATE OF CONSULTATION: 10/31/2016 REFERRING PHYSICIAN: Dr. Nancy Pandey. REASON FOR CONSULTATION: Chest pain. CHIEF COMPLAINT ON ADMISSION: Chest pain. HISTORY OF PRESENT ILLNESS: Ms. Salas is a 61-year-old female who was recently admitted for an elective cardiac catheterization on 10/15/2016. Catheterization demonstrated severe obtuse marginal disease. Two drug-eluting stents were implanted. The procedure was performed via radial approach without complications. The patient returned to the cardiology clinic yesterday for routine followup, complaining of intermittent chest discomfort. Pain is lasting approximately 30 seconds up to 2 minutes, described as a sharp, stabbing tightness as well as heaviness. There is no associated shortness of breath. In fact, the patient feels that her chronic dyspnea on exertion has improved significantly since her procedure. Her cardiac enzymes are negative overnight. Her initial ECG performed in the office demonstrated inferior T-wave inversions, which was changed from prior tracing; however, repeat ECG performed in the Emergency Department had returned to baseline. The patient has been hypertensive with markedly elevated blood pressures over the past 4 weeks. She states that she has been compliant with medications including Plavix; however, she has altered the timing of her Plavix on a daily basis due to perceived side effect of fatigue and sleepiness. She has not used any sublingual nitroglycerin. No dysrhythmias noted on telemetry overnight. She offers no complaints this morning. REVIEW OF SYSTEMS: The pertinent positives noted above. A comprehensive 10-system review is otherwise negative. PAST MEDICAL HISTORY: 1. Coronary artery disease with recent drug-eluting stent implantation x2 to the obtuse marginal branch vessel. 2. Diabetes. 3. Depression. 4. Dyslipidemia. 5. Hypothyroidism. 6. Hypertension. 7. GERD. 8. Gastroparesis. 9. Obstructive sleep apnea. PAST SURGICAL HISTORY: Recent cardiac catheterization with drug-eluting stent placement x2. OUTPATIENT MEDICATIONS: 1. Amlodipine 5 mg daily. 2. Plavix 75 mg daily. 3. Synthroid 200 mcg daily. 4. Klor-Con 20 mEq daily. 5. Carvedilol 3.125 mg twice daily. 6. Furosemide 20 mg daily. 7. Sublingual nitro as needed. 8. Percocet as needed. 9. Zofran as needed. 10. Klonopin 1 tablet by mouth daily. 11. Zoloft 100 mg daily. 12. Losartan 100 mg daily. 13. Prilosec 40 mg daily. 14. NovoLog FlexPen 12 units before meals 3 times a day. 15. Lipitor 40 mg daily. 16. Ventolin 2 puffs every 4 hours. 17. Flonase 50 mcg each nostril daily. 18. Aspirin 81 mg daily. ALLERGIES: LISTED TO METFORMIN, ADHESIVE TAPE, AND ENVIRONMENTAL DUST. SOCIAL HISTORY: Former tobacco abuse. FAMILY HISTORY: Premature coronary artery disease or sudden cardiac in her mother at age 30 and sister at age 47. LABORATORY DATA: White blood cell count 9.24, hemoglobin is 11.5, and platelet count is 270. Sodium 146, potassium 4.0, chloride 110, CO2 is 30, BUN is 23, and creatinine is 0.89. White blood cell count 9.24, hemoglobin is 11.5, and platelet count is 270. INR 0.9. Chest x-ray on admission, no acute cardiopulmonary findings. PHYSICAL EXAMINATION: VITAL SIGNS: Temperature is 36.8 degrees centigrade, pulse 72 beats per minute and regular, respiratory rate 16 breaths per minute, blood pressure is 173/69, and SaO2 is 95% on room air. GENERAL: NAD, awake, alert and oriented x3. HEENT: Her mucous membranes are moist. There is no scleral icterus. Conjunctivae are pink. NECK: Supple without JVD or HJR. No carotid bruit. HEART: Regular with a normal S1 and S2. There is no murmur, rub, or gallop. LUNGS: Clear without rales, rhonchi or wheeze. ABDOMEN: Soft and nontender. No rebound or guarding. Normal bowel sounds. EXTREMITIES: Warm and dry. There is no clubbing, cyanosis, or edema. NEUROLOGIC: Demonstrates no focal deficit. FINAL IMPRESSION: 1. A 61-year-old female admitted with chest discomfort and atypical features. Transient ECG changes noted without significant elevation of troponin. The patient has known history of hypertensive heart disease, moderate concentric left ventricular hypertrophy as well as poorly controlled blood pressure over the past few weeks as well. 2. Coronary artery disease, status post recent drug-eluting stent placement x2 to the left circumflex on 10/15/2016. 3. Dyslipidemia. 4. Diabetes. 5. Tobacco abuse. PLAN AND RECOMMENDATIONS: I had a long discussion with the patient regarding importance of compliance, particularly with dual antiplatelet therapy for a minimum of 1 year post-percutaneous intervention. She states she has been compliant with Plavix. I will give her an additional dose 75 mg of clopidogrel x1 now. She has also received her a.m. antihypertensive medications. She will likely need titration of carvedilol to improve blood pressure control. An exercise stress echo will be performed this morning for further risk stratification with recurrent atypical chest pain. Further recommendations pending review of that study. Thank you for allowing me to take part in the care of your patient.
[2016-10-31] MEDS ORDERED: PERFLUTREN LIPID MICROSPHERE (DEFINITY) IV ONE (10:48)
--- NOTE | 2016-10-31 11:40 | Progress Note ---
Medicine Progress Note Date & Time of Visit: Oct 31, 2016 at 11:26. Subjective Pt was seen and examined Lying in bed with no distress Pt said that she feels fine she denies any chest pain, palpitation, dizziness and SOB Objective Last 8 Hrs Date Time Temp Pulse Resp B/P (MAP) Pulse Ox O2 Delivery O2 Flow Rate FiO2 10/31/16 08:02 36.8 72 16 173/69 (103) 95 Room Air 10/31/16 08:00 96 Room Air 10/31/16 04:00 Room Air 10/31/16 04:00 36.7 78 18 148/72 (97) 96 Room Air Physical Exam: General- No acute distress, obese Head- atraumatic Eyes- PERRL, EOMI ENT- oropharynx clear Neck- supple, no JVD Lungs- clear to auscultation and percussion Heart- regular rhythm; no murmur Abdomen- normal bowel sounds, soft Extremities- no calf tenderness Neuro- alert, oriented x 3; PERRL, EOMI; no facial palsy Skin- warm & dry Laboratory Results: Last 24 Hours Test 10/30/16 16:25 10/30/16 19:14 10/30/16 21:29 10/30/16 22:30 White Blood Count 8.86 K/uL Red Blood Count 4.65 M/uL Hemoglobin 12.5 g/dL Hematocrit 39.0 % Mean Corpuscular Volume 83.9 fL Mean Corpuscular Hemoglobin 26.9 pg Mean Corpuscular Hemoglobin Concent 32.1 g/dl Platelet Count 337 K/uL Mean Platelet Volume 10.5 fL Neutrophils (%) (Auto) 52.4 % Lymphocytes (%) (Auto) 33.6 % Monocytes (%) (Auto) 9.3 % Eosinophils (%) (Auto) 3.4 % Basophils (%) (Auto) 1.1 % Neutrophils # (Auto) 4.64 K/uL Lymphocytes # (Auto) 2.98 K/uL Monocytes # (Auto) 0.82 K/uL Eosinophils # (Auto) 0.30 K/uL Basophils # (Auto) 0.10 K/uL RDW Standard Deviation 39.5 fL RDW Coefficient of Variation 13.0 % Immature Granulocyte % (Auto) 0.2 % Immature Granulocyte # (Auto) 0.02 K/uL Prothrombin Time 9.4 SECONDS Prothromb Time International Ratio 0.9 Activated Partial Thromboplast Time 24.7 SECONDS Partial Thromboplastin Ratio 1.0 Sodium Level 144 mmol/L Potassium Level 4.1 mmol/L Chloride Level 107 mmol/L Carbon Dioxide Level 31 mmol/L Anion Gap 6.0 mmol/L Blood Urea Nitrogen 20 mg/dl Creatinine 0.89 mg/dl Est Creatinine Clear Calc Drug Dose 80.1 ml/min Estimated GFR () 81.1 Estimated GFR (Non- 70.0 BUN/Creatinine Ratio 22.6 Random Glucose 114 mg/dl Calcium Level 8.7 mg/dl Troponin I 0.020 ng/ml 0.023 ng/ml Bedside Glucose 107 mg/dl 212 mg/dl Test 10/31/16 04:10 10/31/16 06:41 10/31/16 10:30 White Blood Count 9.24 K/uL Red Blood Count 4.12 M/uL Hemoglobin 11.5 g/dL Hematocrit 34.9 % Mean Corpuscular Volume 84.7 fL Mean Corpuscular Hemoglobin 27.9 pg Mean Corpuscular Hemoglobin Concent 33.0 g/dl RDW Standard Deviation 40.9 fL RDW Coefficient of Variation 13.3 % Platelet Count 270 K/uL Mean Platelet Volume 10.8 fL Sodium Level 146 mmol/L Potassium Level 4.0 mmol/L Chloride Level 110 mmol/L Carbon Dioxide Level 30 mmol/L Anion Gap 6.0 mmol/L Blood Urea Nitrogen 23 mg/dl Creatinine 0.89 mg/dl Est Creatinine Clear Calc Drug Dose 79.9 ml/min Estimated GFR () 81.1 Estimated GFR (Non- 70.0 BUN/Creatinine Ratio 25.8 Random Glucose 129 mg/dl Calcium Level 8.4 mg/dl Troponin I 0.020 ng/ml Bedside Glucose 91 mg/dl Assessment & Plan INTERMITTENT CHEST PAIN WITH NEW EKG CHANGES recent cardiac catheterization, elective in [facility] on 10/15/16- had stenosis in left circumflex with 2 CARLOS placed. EKG changes was noted on follow office appt yesterday with Dr. Medina -EKG in ED shows- similar changes - Asymptomatic currently - Serial troponin negative -Continue with Aspirin 81 mg, Plavix 75 mg, Coreg 3.125 mg PO BID, Atorvastatin 40 mg, Losartan. -Schedule for stress test this morning -Cardiology on board Update: Normal stress test. Case discussed with Cardiology Dr. Webber that recommended to increase coreg to 6.25mg and ok to discharge home from cardiac standpoint. HYPERTENSION, UNCONTROLLED -BP elevated -On Coreg 3.125 mg PO BID, Amlodipine, Losartan -Consider to increase Coreg to 6.25mg - Continue to monitor BP DM Type 2 -Uncontrolled -Recent HBa1c 10.4 on 10/16/16 - Continue Insulin OBESITY Counseling about weight loss DVT PROPHYLAXIS Lovenox SQ CODE STATUS FULL CODE Consultants: Cardio Current Inpatient Medications: Current Inpatient Medications Medications (Trade) Dose Ordered Sig/Duc Route Start Time Stop Time Status Last Admin Dose Admin Albuterol (Ventolin Hfa Inhaler) 2 puffs Q6H PRN INH 10/30/16 18:30 11/29/16 18:29 Amlodipine Besylate (Norvasc Tab) 5 mg QPM PO 10/31/16 21:00 11/30/16 20:59 Aspirin (Ecotrin Tab) 81 mg QPM PO 10/30/16 21:00 11/29/16 20:59 10/30/16 21:35 81 MG Atorvastatin Calcium (Lipitor Tab) 40 mg HS PO 10/30/16 21:00 11/29/16 20:59 10/30/16 21:35 40 MG Carvedilol (Coreg Tab) 3.125 mg BID PO 10/30/16 21:00 11/29/16 20:59 10/31/16 08:56 3.125 MG Clonazepam (Klonopin Tab) 0.5 mg BID PO 10/30/16 21:00 11/29/16 20:59 10/30/16 21:40 0.5 MG Clopidogrel Bisulfate (plAVix TAB) 75 mg QPM PO 10/30/16 21:00 11/29/16 20:59 Future hold Fluticasone Propionate (Flonase Nasal [place]) 2 sprays QPM NA 10/30/16 21:00 11/29/16 20:59 10/30/16 21:33 2 SPRAYS Furosemide (Lasix Tab) 20 mg DAILY PO 10/31/16 09:00 11/30/16 08:59 Levothyroxine Sodium (Synthroid Tab) 175 mcg DAILYBB PO 10/31/16 06:00 11/30/16 05:59 10/31/16 06:15 175 MCG Losartan Potassium (coZAAR TAB) 100 mg DAILY PO 10/31/16 09:00 11/30/16 08:59 10/31/16 08:44 100 MG Sertraline HCl (Zoloft Tab) 100 mg QPM PO 10/30/16 21:00 11/29/16 20:59 10/30/16 21:34 100 MG Cholecalciferol (Vitamin D Tab) 2,000 inter.unit DAILY PO 10/31/16 09:00 11/30/16 08:59 10/31/16 08:45 2,000 INTER.UNIT Insulin Detemir (Levemir Insulin) 70 units QPM SC 10/30/16 21:00 11/29/16 20:59 10/30/16 21:48 35 UNITS Pantoprazole Sodium (Protonix Tab) 40 mg QAM PO 10/31/16 09:00 11/30/16 08:59 10/31/16 08:44 40 MG Potassium Chloride (Klor-Con Tab) 20 meq DAILY PO 10/31/16 09:00 11/30/16 08:59 10/31/16 08:44 20 MEQ Enoxaparin Sodium (Lovenox Inj) 40 mg Q24H SC 10/30/16 20:00 11/29/16 19:59 10/30/16 20:42 40 MG Acetaminophen (Tylenol Tab) 650 mg Q4H PRN PO 10/30/16 18:30 11/29/16 18:29 Zolpidem Tartrate (Ambien Tab) 5 mg HSZ PRN PO 10/30/16 18:30 11/29/16 18:29 10/30/16 21:55 5 MG Ondansetron HCl (Zofran Inj) 4 mg Q6H PRN IV 10/30/16 18:30 11/29/16 18:29 Nitroglycerin (Nitrostat Tab) 0.4 mg UD PRN SL 10/30/16 18:30 11/29/16 18:29 Polyethylene (Miralax Powder Packet) 17 gm DAILY PRN PO 10/30/16 18:30 11/29/16 18:29 Insulin Aspart (novoLOG ASPART) SLIDING SCALE If C... ACHS SC 10/30/16 21:00 11/29/16 20:59 10/30/16 21:39 3 UNITS Glucose (Glucose 40% Gel) 15-30 GRAMS 15 GRAMS... UD PRN PO 10/30/16 19:00 11/29/16 18:59 Glucose (Glucose Chew Tab) 4-8 Tablets 4 Tabl... UD PRN PO 10/30/16 19:00 11/29/16 18:59 Dextrose (Dextrose 50% 50ML Syringe) 25-50ML OF 50% DW IV FOR... UD PRN IV 10/30/16 19:00 11/29/16 18:59 Glucagon (Glucagon Inj) 1 mg UD PRN SQ 10/30/16 19:00 11/29/16 18:59
--- NOTE | 2016-10-31 12:01 | EXERCISE STRESS ECHO ---
*NOTICE TO RECEIVING DEMOCRAT AGENCY This information is strictly Confidential and protected under [place] law. [place] law prohibits you from making any further disclosure of this information unless further disclosure is expressly permitted by the written consent of the person to whom it pertains or is authorized by law. A general authorization for the release of medical or other information is not sufficient for this purpose. Hospital accepts no responsibility if the information is made available to any other person, INCLUDING THE PATIENT. Interpretation Summary * Name: ROXANNE HENRY Study Date: 10/31/2016 09:40 AM BP: 148/71 mmHg * Patient Location: C.2T\S\S239\S\1 HR: 75 * : 1955 (M/d/yyyy) Gender: Female Height: 65 in * Age: 61 yrs Ethnicity: [place] Weight: 231 lb * Ordering Physician: Alessandro Webber * Referring Physician: Alessandro Webber * Performed By: Chrissy Lopes RDCS * * Reason For Study: Chest pain * BSA: 2.1 m2 * The stress echocardiogram is negative for inducible ischemia. * Exercise capacity is below average. * -- Conclusions -- * Hypertensive baseline blood pressure. * There is moderate concentric left ventricular hypertrophy. Procedure Details * ECHOEX, CPT #18037 * A contrast injection of Definity was performed to improve assessment of LV function. * Contrast was injected into an intravenous site in the left arm. * One vial of Definity ultrasound contrast was diluted in normal saline to a total volume of 10 ml. A total of '4' ml of solution was administered during imaging. * Lot # [id number] of Definity utilized for procedure. * Expiration date DEC 10. * The attending nurse who injected the contrast agent was Tangela Lopez RN. Left Ventricle * The left ventricle is normal in size. * There is moderate concentric left ventricular hypertrophy. * Ejection Fraction = 65-70%. * The left ventricular ejection fraction increases normally with stress. The left ventricular end-systolic cavity size reduces post-stress (normal response). The left ventricular wall motion with stress is normal. * Resting wall motion: Normal. Stress wall motion: Appropriate increase in Left ventricular systolic function and decrease in cavity size. No stress induced segmental wall motion abnormalities. Right Ventricle * The right ventricle is not well visualized. Stress Parameters * The baseline ECG displays normal sinus rhythm. * The baseline ECG displays abnormal T waves in the lateral leads. * Stress ECG: No ST changes. No arrhythmias. * The stress portion of this study was personally supervised by the undersigned interpreting physician. * Rest heart rate was '75' BPM. * Rest blood pressure was '148/71' * Maximum heart rate achieved was 136 bpm. * Maximum heart rate was 85 % of maximum age-predicted heart rate. * Maximum blood pressure was '193/60' * Total exercise time was '4:46' * Maximum exercise MET level achieved was '6.70' METS * Maximum treadmill speed was '2.50' miles per hour. * Maximum treadmill elevation was '12.00'% grade. * Exercise was terminated due to 'patient request' * Exercise was stopped due to fatigue. * Normal blood pressure response to exercise. * Hypertensive baseline blood pressure. MMode 2D Measurements and Calculations IVSd 1.3 cm LVIDd 3.9 cm LVIDs 2.7 cm LVPWd 1.3 cm IVS/LVPW 0.96 FS 30.4 % EDV(Teich) 65.2 ml ESV(Teich) 27.0 ml EF(Teich) 58.6 % EDV(cubed) 58.5 ml ESV(cubed) 19.7 ml EF(cubed) 66.4 % LV mass(C)d 179.2 grams LV mass(C)dI 85.2 grams/m\S\2 SV(Teich) 38.2 ml SI(Teich) 18.2 ml/m\S\2 SV(cubed) 38.8 ml SI(cubed) 18.5 ml/m\S\2 LA dimension 3.7 cm LVAd ap4 31.4 cm\S\2 LVLd ap4 7.9 cm EDV(MOD-sp4) 104.3 ml EDV(sp4-el) 105.9 ml LVAs ap4 16.6 cm\S\2 LVLs ap4 5.8 cm ESV(MOD-sp4) 39.7 ml ESV(sp4-el) 40.1 ml EF(MOD-sp4) 61.9 % EF(sp4-el) 62.1 % LVAd ap2 29.3 cm\S\2 LVLd ap2 8.3 cm EDV(MOD-sp2) 90.7 ml EDV(sp2-el) 88.2 ml LVAs ap2 14.3 cm\S\2 LVLs ap2 6.5 cm ESV(MOD-sp2) 27.7 ml ESV(sp2-el) 26.8 ml EF(MOD-sp2) 69.4 % EF(sp2-el) 69.6 % LVLd %diff 4.5 % EDV(MOD-bp) 100.0 ml LVLs %diff 10.4 % ESV(MOD-bp) 34.8 ml EF(MOD-bp) 65.2 % SV(MOD-sp4) 64.6 ml SI(MOD-sp4) 30.7 ml/m\S\2 SV(MOD-sp2) 63.0 ml SI(MOD-sp2) 29.9 ml/m\S\2 SV(MOD-bp) 65.3 ml SI(MOD-bp) 31.0 ml/m\S\2 SV(sp4-el) 65.7 ml SI(sp4-el) 31.3 ml/m\S\2 SV(sp2-el) 61.4 ml SI(sp2-el) 29.2 ml/m\S\2
[2016-10-31 12:13] VITALS: BP 170/68; PULSE 78; TEMP 36.8; O2SAT 93
[2016-10-31 15:32] VITALS: BP 128/74; PULSE 78; TEMP 36.8; O2SAT 91
[2016-10-31] MEDS ORDERED: CRG625 PO (17:22)
[2016-10-31 17:27] VITALS: BP 128/74; PULSE 78; TEMP 36.8; O2SAT 91
--- NOTE | 2016-10-31 17:28 | Discharge Instructions ---
Discharge Instructions Date of Service Oct 31, 2016. Admission Reason for Admission: Left Sided Chest Pain, New EKG Changes Discharge Discharge Diagnosis / Problem: Chest Pain, Hypertension, Diabetes Discharge Goals Goal(s): Decrease discomfort, Improve function, Improve disease control Activity Recommendations Activity Limitations: resume your previous activity (as tolerated) . Instructions / Follow-Up Instructions / Follow-Up Follow up with Dr. Kapadia (Dr. Hennessy partner) on 11/07 at 11 am Follow up with Cardiology Dr. Webber Monitor blood sugar Follow up a heathy diabetic diet with low carb and limited concentrate sugar intake Coreg (carvedilol) increased to 6.25 mg twice a day. Current Hospital Diet Patient's current hospital diet: AHA Diet (Heart Healthy), Low Sodium Diet (2gm Na) Discharge Diet Recommended Diet: Low Sodium Diet (2gm Na), Diabetes Type 2 Diet Pending Studies Studies pending at discharge: no Laboratory Results Hemoglobin A1c Test 10/16/16 06:20 Range/Units Estimated Average Glucose 252 mg/dl Hemoglobin A1c 10.4 H 4.5-5.6 % Medical Emergencies . Who to Call and When: Medical Emergencies: If at any time you feel your situation is an emergency, please call 911 immediately. . Non-Emergent Contact Non-Emergency issues call your: Primary Care Provider Call Non-Emergent contact if: you have any medication questions . . "Provider Documentation" section prepared by Matt Calderon. . VTE Core Measure Inpt VTE Proph given/why not?: Enoxaparin (Lovenox)SQ
[2016-10-31] MEDS ORDERED: AMLODIPINE BESYLATE 5 MG TAB PO SCH (21:00)
[2016-10-31] MEDS ORDERED: CARVEDILOL 6.25 MG TAB PO SCH (21:00)
--- NOTE | 2016-11-04 19:06 | Discharge Summary ---
Discharge Summary Date of Service Nov 04, 2016. Discharge Summary Admission Date: Oct 30, 2016 at 18:22 Discharge Date: Oct 31, 2016 Discharge Disposition: Home Principal Diagnosis: INTERMITTENT CHEST PAIN WITH NEW EKG CHANGES Secondary Diagnoses/Problems: HYPERTENSION, UNCONTROLLED DM Type 2 OBESITY Procedures: CHEST ONE VIEW PORTABLE CLINICAL HISTORY: Chest pain. COMPARISON STUDY: Chest radiograph October 04, 2009. FINDINGS: Lung volumes are normal. There is no pneumothorax or pleural effusion. Mild cardiomegaly is unchanged. There is no evidence of pulmonary edema. The appearance of the chest is unchanged. Hazy bibasilar opacities likely reflect atelectasis. IMPRESSION: 1. No acute cardiopulmonary findings. 2. Mild bibasilar opacities which favor atelectasis. 3. Mild cardiomegaly without evidence of pulmonary edema. Electronically signed by: Ruddy Valerio M.D. 10/30/2016 5:44 PM Dictated Date/Time: 10/30/2016 5:40 PM Interpretation Summary * Name: ROXANNE HENRY Study Date: 10/31/2016 09:40 AM BP: 148/71 mmHg * Patient Location: [facility]\\S\\1 HR: 75 * : 1955 (M/d/yyyy) Gender: Female Height: 65 in * Age: 61 yrs Ethnicity: [place] Weight: 231 lb * Ordering Physician: Alessandro Webber * Referring Physician: Alessandro Webber. * Performed By: Chrissy Lopes RDCS * * Reason For Study: Chest pain * BSA: 2.1 m2 * The stress echocardiogram is negative for inducible ischemia. * Exercise capacity is below average. * -- Conclusions -- * Hypertensive baseline blood pressure. * There is moderate concentric left ventricular hypertrophy. Procedure Details * ECHOEX, CPT #18572 * A contrast injection of Definity was performed to improve assessment of LV function. * Contrast was injected into an intravenous site in the left arm. * One vial of Definity ultrasound contrast was diluted in normal saline to a total volume of 10 ml. A total of '4' ml of solution was administered during imaging. * Lot # [id number] of Definity utilized for procedure. * Expiration date DEC 10. * The attending nurse who injected the contrast agent was Tangela Lopez RN. Left Ventricle * The left ventricle is normal in size. * There is moderate concentric left ventricular hypertrophy. * Ejection Fraction = 65-70%. * The left ventricular ejection fraction increases normally with stress. The left ventricular end-systolic cavity size reduces post-stress (normal response) . The left ventricular wall motion with stress is normal. * Resting wall motion: Normal. Stress wall motion: Appropriate increase in Left ventricular systolic function and decrease in cavity size. No stress induced segmental wall motion abnormalities. Right Ventricle * The right ventricle is not well visualized. Stress Parameters * The baseline ECG displays normal sinus rhythm. * The baseline ECG displays abnormal T waves in the lateral leads. * Stress ECG: No ST changes. No arrhythmias. * The stress portion of this study was personally supervised by the undersigned interpreting physician. * Rest heart rate was '75' BPM. * Rest blood pressure was '148/71' * Maximum heart rate achieved was 136 bpm. * Maximum heart rate was 85 % of maximum age-predicted heart rate. * Maximum blood pressure was '193/60' * Total exercise time was '4:46' * Maximum exercise MET level achieved was '6.70' METS * Maximum treadmill speed was '2.50' miles per hour. * Maximum treadmill elevation was '12.00'% grade. * Exercise was terminated due to 'patient request' * Exercise was stopped due to fatigue. * Normal blood pressure response to exercise. * Hypertensive baseline blood pressure. Consultations: Cardio Medication Reconciliation New Medications: Carvedilol (Carvedilol) 6.25 Mg Tab 6.25 MG PO BID for 30 Days, #60 TAB Continued Medications: Albuterol Hfa (Ventolin Hfa) 200 Puffs/34883 Mcg Aers 2-4 PUFFS INH Q6H, #1 INHALER Amlodipine (Norvasc) 5 Mg Tab 5 MG PO QPM, TAB Aspirin (Aspirin Ec) 81 Mg Tab 81 MG PO QPM Atorvastatin (Lipitor) 40 Mg Tab 1 TAB PO HS for 90 Days, #90 TAB 3 Refills Caffeine (Caffeine) 200 Mg Tab 100 MG PO DAILY PRN for Cholecalciferol (Vitamin D3) 2,000 Unit Cap 1 CAP PO DAILY for 30 Days, #30 CAP 3 Refills Clonazepam (Klonopin) 0.5 Mg Tab 0.5 MG PO BID, TAB Clopidogrel (Plavix) 75 Mg Tab 75 MG PO QPM, TAB Fluticasone Propionate (Nasal) (Allergy Nasal [place] 24 Ho) 50 Mcg/Act Spr 2 SPRY NA QPM Furosemide (Lasix) 20 Mg Tab 20 MG PO DAILY, TAB Insulin Aspart (Novolog) 100 Units/Ml Inj 12 UNITS SQ AC Insulin Detemir (Levemir) 100 Units/Ml Inj 70 UNITS SQ QPM Levothyroxine Sodium (Levothyroxine Sodium) 175 Mcg Tab 1 TAB PO DAILY for 30 Days, #30 TAB 5 Refills Losartan Potassium (Cozaar) 100 Mg Tab 1 TAB PO DAILY for 30 Days, #30 TAB 5 Refills Melatonin-Pyridoxine (Melatonin) 1 Tab Tab 5 MG PO HS Omeprazole (Prilosec) 20 Mg Capcr 40 MG PO DAILY, CAP Ondansetron Hcl (Zofran) 4 Mg Tab 4 MG PO PRN for Nausea, TAB Potassium Chloride (K-Tabs) 10 Meq Tab 20 MEQ PO DAILY Sertraline (Zoloft) 100 Mg Tab 1 TAB PO QPM for 90 Days, TAB 1 Refill Sodium Fluoride (Dental) (Denta 5000 Plus) 1.1 % Cre 1 APPL DIRECTED Discontinued Medications: Carvedilol (Coreg) 3.125 Mg Tab 1 TAB PO BID for 30 Days, #60 TAB 3 Refills Admission Information HPI (per Admitting provider): The patient is a 61 year old female with PMH of CAD s/p stent , HTN, DM , Obesity who presents to the Emergency Room with complaints of intermittent left sided chest pain beginning yesterday. Patient had a recent elective cardiac catheterization done in [facility] on 10/15/16- which showed significant stenosis in left circumflex, had 2 CARLOS placed. She was doing well post cath, till yesterday when had chest pain, left sided- sharp, lasting for few seconds but recurring every 15 minutes. Not associated with SOB , sweating, palpitations, diaphoresis, nausea or vomiting. No leg swelling, abd pain, fever, chills. Per her, does take all her medications regularly. Did not take her amlodipine today AM. She saw Dr Webber for her post cath follow up visit when EKG was done which showed T wave inversions in leads I, aVL which were new and thus was referred to ED for admission and further evaluation. In ED, her BP is in 180s, received IV Labetalol 10 mg for BP --> down to 160/ 59. Denies any chest pain now. EKG- shows T wave inversions in leads I , Avl, First troponin- negative, CXR- atelectasis, no acute abnormalities. ER physician spoke to Dr Webber. Will admit her for chest pain with new EKG changes S/P recent cardiac cath for further evaluation and mx. Physical Exam (per Admitting): General Appearance: no apparent distress, + obese Head: normocephalic, atraumatic Eyes: PERRL ENT: hearing grossly normal Neck: supple, no JVD Respiratory/Chest: chest non-tender, lungs clear, normal breath sounds, no respiratory distress, no accessory muscle use Cardiovascular: regular rate, rhythm, no edema, no murmur Abdomen/GI: normal bowel sounds, non tender, soft Extremities/Musculoskelatal: no calf tenderness, no pedal edema, non-tender Neurologic/Psych: no motor/sensory deficits, alert, oriented x 3 Skin: normal color Hospital Course INTERMITTENT CHEST PAIN WITH NEW EKG CHANGES recent cardiac catheterization, elective in [facility] on 10/15/16- had stenosis in left circumflex with 2 CARLOS placed. EKG changes was noted on follow office appt yesterday with Dr. Medina -EKG in ED shows- similar changes - Asymptomatic currently - Serial troponin negative -Continue with Aspirin 81 mg, Plavix 75 mg, Coreg 3.125 mg PO BID, Atorvastatin 40 mg, Losartan. -Schedule for stress test this morning -Cardiology on board Update: Normal stress test. Case discussed with Cardiology Dr. Webber that recommended to increase coreg to 6.25mg and ok to discharge home from cardiac standpoint. HYPERTENSION, UNCONTROLLED -BP elevated -On Coreg 3.125 mg PO BID, Amlodipine, Losartan -Consider to increase Coreg to 6.25mg - Continue to monitor BP DM Type 2 -Uncontrolled -Recent HBa1c 10.4 on 10/16/16 - Continue Insulin OBESITY Counseling about weight loss DVT PROPHYLAXIS Lovenox SQ CODE STATUS FULL CODE Total time spent on discharge = 35 MINUTES This includes examination of the patient, discharge planning, medication reconciliation, and communication with other providers. Discharge Instructions Discharge Instructions Date of Service Oct 31, 2016. Admission Reason for Admission: Left Sided Chest Pain, New EKG Changes Discharge Discharge Diagnosis / Problem: Chest Pain, Hypertension, Diabetes Discharge Goals Goal(s): Decrease discomfort, Improve function, Improve disease control Activity Recommendations Activity Limitations: resume your previous activity (as tolerated) . Instructions / Follow-Up Instructions / Follow-Up Follow up with Dr. Kapadia (Dr. Hennessy partner) on 11/07 at 11 am Follow up with Cardiology Dr. Webber Monitor blood sugar Follow up a heathy diabetic diet with low carb and limited concentrate sugar intake Coreg (carvedilol) increased to 6.25 mg twice a day. Current Hospital Diet Patient's current hospital diet: AHA Diet (Heart Healthy), Low Sodium Diet (2gm Na) Discharge Diet Recommended Diet: Low Sodium Diet (2gm Na), Diabetes Type 2 Diet Pending Studies Studies pending at discharge: no Laboratory Results Hemoglobin A1c Test 10/16/16 06:20 Range/Units Estimated Average Glucose 252 mg/dl Hemoglobin A1c 10.4 H 4.5-5.6 % Medical Emergencies . Who to Call and When: Medical Emergencies: If at any time you feel your situation is an emergency, please call 911 immediately. . Non-Emergent Contact Non-Emergency issues call your: Primary Care Provider Call Non-Emergent contact if: you have any medication questions . . "Provider Documentation" section prepared by Matt Calderon. . VTE Core Measure Inpt VTE Proph given/why not?: Enoxaparin (Lovenox)SQ Additional Copies To Dennis Hennessy D.O. Doberstein, Timothy F., MD
== END 2016-10-31 18:29 | disposition home or self-care (01) | DRG 313 ==
LOC: EDBD 16:35 → C.EDB 16:36 → C.2T 18:22 → ENRESERV 18:37
PROVIDERS: ADMIT Internal Medicine; ATTEND Internal Medicine
DX: R07.9 Chest pain, unspecified (principal); R94.31 Abnormal electrocardiogram [ECG] [EKG]; I51.7 Cardiomegaly; I25.10 Atherosclerotic heart disease of native coronary artery without angina pectoris; I10 Essential (primary) hypertension; E11.65 Type 2 diabetes mellitus with hyperglycemia; E11.43 Type 2 diabetes mellitus with diabetic autonomic (poly)neuropathy; K31.84 Gastroparesis; E78.00 Pure hypercholesterolemia, unspecified; K21.9 Gastro-esophageal reflux disease without esophagitis; G47.33 Obstructive sleep apnea (adult) (pediatric); F32.9 Major depressive disorder, single episode, unspecified; F17.210 Nicotine dependence, cigarettes, uncomplicated; E66.9 Obesity, unspecified; Z68.38 Body mass index [BMI] 38.0-38.9, adult; Z95.5 Presence of coronary angioplasty implant and graft; Z79.82 Long term (current) use of aspirin; Z79.02 Long term (current) use of antithrombotics/antiplatelets; Z79.4 Long term (current) use of insulin; Z79.899 Other long term (current) drug therapy

== ENCOUNTER 2019-06-15 14:01 | Inpatient (IN) ==
[2019-06-15] MEDS ORDERED: SODIUM CHLORIDE 0.9% 1000ML 1,000 ML IV SCH (15:00)
[2019-06-15 15:27] LABS: Basophils # (auto) 0.06 K/uL (0-0.2); Basophils % (auto) 0.6 %; Eosinophils # (auto) 0.39 K/uL (0-0.5); Eosinophils % (auto) 4.1 %; Hemoglobin 11.6 g/dL (12.0-16.0); Immature Granulocytes # (auto) 0.01 K/uL (0.00-0.02); Immature Granulocytes % (auto) 0.1 %; Lymphocytes # (auto) 2.77 K/uL (1.2-3.4); Lymphocytes % (auto) 29.4 %; Mean Corpuscular Hemoglobin 27.8 pg (25-34); Mean Corpuscular Hgb Conc 33.1 g/dL (32-36); Mean Corpuscular Volume 83.7 fL (80-100); Monocytes # (auto) 0.82 K/uL (0.11-0.59); Monocytes % (auto) 8.7 %; Neutrophils # (auto) 5.36 K/uL (1.4-6.5); Neutrophils % (auto) 57.1 %; Platelet Count 450 K/uL (130-400); RDW Coefficient of Variation 14.5 % (11.5-14.5); RDW Standard Deviation 44.3 fL (36.4-46.3); Red Blood Count 4.18 M/uL (4.2-5.4); White Blood Count 9.41 K/uL (4.8-10.8)
[2019-06-15 15:37] LABS: Partial Thromboplastin Time 27.3 Seconds (21.0-31.0); Prothrombin Time 10.3 Seconds (9.0-12.0)
--- NOTE | 2019-06-15 15:38 | CT Scan Report ---
CT head/brain wo con CLINICAL HISTORY: 63 years-old Female presenting with Stroke evaluation. TECHNIQUE: Multidetector CT imaging of the head was performed without the use of intravenous contrast . IV contrast: None. One or more dose lowering techniques were used consistent with the principles of ALARA (as low as reasonably achievable), including automatic exposure control, mA or kV adjustment t o individual patient size, and/or use of iterative reconstruction. COMPARISON: None. CT DOSE (mGy.cm): The estimated cumulative dose is 1028.89 mGy.cm. FINDINGS: Ramp Service Agent topogram: Unremarkable. Ventricles and sulci normal in size. No hemorrhage. Brain parenchyma normal in appearance with preser juan pablo singh-white differentiation. No acute territorial infarct. No mass effect or midline shift. No ext ra-axial fluid collection. Paranasal sinuses and mastoid air cells clear. Calvarium intact. IMPRESSION: 1. No acute intracranial abnormality. ACT 112: Negative or not required by law. Electronically signed by: Bart Wilson M.D. 06/15/2019 3:36 PM
[2019-06-15 15:42] LABS: Albumin Level 2.9 gm/dl (3.4-5.0); BUN Creatinine Ratio 13.2 (10-20); Calcium 8.9 mg/dl (8.5-10.1); Creatinine Clr Calc Pharmacy 21.3 ml/min; Est GFR (African American) 16.8; Est GFR (Non-African American) 14.5; Magnesium 2.5 mg/dl (1.8-2.4); Potassium 4.2 mmol/L (3.5-5.1)
--- NOTE | 2019-06-15 15:51 | XRay Report ---
XR chest 1V portable CLINICAL HISTORY: Altered mental status COMPARISON STUDY: 10/30/2016 FINDINGS: The heart remains borderline enlarged. There is no failure. There is no focal pulmonary con solidation. There are no pleural effusions.[ IMPRESSION: No active disease in the chest. ACT 112: Negative or not required by law. Electronically signed by: Jose Francisco Pfeiffer M.D. 06/15/2019 3:50 PM
[2019-06-15 16:06] LABS: Albumin Globulin Ratio 0.8 (0.9-2); Bilirubin,Total 0.3 mg/dl (0.2-1); Creatine Kinase MB 3.9 ng/ml (0.5-3.6); Globulin 3.7 gm/dl (2.5-4.0); Total Protein 6.6 gm/dl (6.4-8.2); Troponin I 0.043 ng/ml (0-0.045)
[2019-06-15 16:40] LABS: T4 Free Thyroxine 0.29 ng/dl (0.8-1.6)
--- NOTE | 2019-06-15 19:16 | History & Physical Report ---
Date of Service June 15, 2019 Assessment & Plan (1) Altered mental status: (2) Syncope: 63-year-old female with history of coronary artery disease status post stent placement, diabetes type 2, hypertension, CKD stage IV, Hypothyroidism, and other problems noted below presenting with worsening of altered mental status and a syncopal episode. PROGRESSIVE ALTERED MENTAL STATUS-CONFUSION, SYNCOPAL EPISODE -- likely secondary to severe hypothyroidism TSH 110, free T4 0.29 Patient is supposed to be on levothyroxine 200 mcg daily, patient's family reports patient may not be taking her medications correctly Patient not seen by the endocrinology service at this time Discussed with press operator at [facility] in [place], Dr. Saldaña Given patient's presentation, recommend IV levothyroxine 100 mcg 1 dose now Repeat free T4 and TSH tomorrow, if improving and mental status also improving, she recommends to resume her usual levothyroxine 200 mcg p.o. daily If not, she does recommend continuing with IV levothyroxine 100 mcg x 1 more day and repeat free T4 and TSH the next day It is also recommended to check cortisol level, if below 3, recommended hydrocortisone 50 mg every 8 hours Please continue to discuss patient's case with [facility] endocrinology service for further recommendations -- CT head: No acute intracranial abnormality. Check MRI of the brain without contrast to rule out CVA --Check EEG to rule out underlying seizure disorder Seizure precautions --Rule out arrhythmia, monitor in telemetry unit Echocardiogram --No focus of infection identified at this time will check blood cultures and urinalysis ACUTE RENAL FAILURE ON CKD STAGE IV --Baseline creatinine 2.3, GFR 22.4 as of last check in March 2018 --Creatinine now 3.2 Likely prerenal etiology secondary to dehydration --Hold Lasix, start IV NSS Monitor daily DIABETES TYPE 2 --At the ER, patient's blood glucose levels was 72 --Hold Levemir at this time --Pharmacy glycemic control consulted Check A1c HISTORY OF CORONARY ARTERY DISEASE STATUS POST STENT PLACEMENT --No cardiac symptoms Continue Coreg, Plavix, aspirin, Lipitor; hold losartan for elevated creatinine HYPERTENSION --Continue usual amlodipine, Coreg Hold losartan for elevated creatinine DEPRESSION --Stable --Hold sertraline and Wellbutrin for now in light of altered mental status Resume gradually once mental status improves DVT prophylaxis --We will hold off on Lovenox or heparin at this time given fall risk, seizure risk SCDs ordered Reevaluate daily CODE STATUS --Full code as per patient's daughter Disposition --Lives alone at home Daughter checks on patient by calling her, but lives in [place] --PT/OT evaluation May need to undergo inpatient rehab Case and plan of care discussed with patient and her daughter in detail and at length All questions were answered They are understanding, agreeable, comfortable with the plan of care Starting tomorrow June 15, 2019, the patient will be taken care of by Dr. Edgar Johansen as attending physician History of Present Illness 63-year-old female with history of coronary disease, diabetes type 2, hypertension, dyslipidemia, hypothyroidism, CKD stage IV No other problems noted below presenting with increased confusion times few days and a syncopal episode. Patient is a poor historian due to poor recall of events and mild confusion. Patient's history obtained mostly from patient's daughter Dena at the bedside. As per patient's daughter, they have noticed that for the past few weeks the patient has been having difficulty with short-term memory and Has been noted to be slower to process information. Family also suspects that the patient has not been taking her medications correctly. Last Friday, the patient called her daughter reporting to her that she had fallen while walking around the kitchen ,but does not recall the events leading up to the fall. She did report that she thinks that she might have bitten her tongue. Yesterday, the patient's daughter drove from [place] to the patient's house to check her mother. She noticed that the house was in disarray, and that the patient seemed to be even more confused, and slower to answer questions. Patient was brought to the primary care physician's office today and patient was recommended to be evaluated in the ER. At the ER, CT head did not show any acute CVA. Creatinine elevated at 3.2. Blood work revealed TSH of 110 and free T4 of 0.29. On my exam, the patient is seen sitting up in bed, alert, pleasant, oriented x3. She answers most questions appropriately but seems to have poor recall of the events over the weekend. She denies having any headache, chest pain, shortness of breath, abdominal pain, problems with urination or bowel movement. She does report feeling cold most of the time, no constipation. Primary Care Provider: Dennis A. Sulman, DO Allergies Allergy/AdvReac Type Severity Reaction Status Date / Time adhesive Allergy Unknown SKIN Verified 06/15/19 16:34 WELTS/PRURITIS metformin AdvReac Unknown DIARRHEA Verified 06/15/19 16:34 Home Medications Home Medications Medication Instructions Recorded Confirmed Type amlodipine 5 mg PO DAILY 06/15/19 06/15/19 History aspirin 81 mg PO DAILY 06/15/19 06/15/19 History atorvastatin 40 mg PO DAILY 06/15/19 06/15/19 History bupropion HCl 300 mg PO DAILY 06/15/19 06/15/19 History carvedilol 12.5 mg PO DAILY 06/15/19 06/15/19 History clopidogrel 75 mg PO DAILY 06/15/19 06/15/19 History fluticasone propionate 1 spray INTRANASAL 06/15/19 06/15/19 History furosemide 40 mg PO BID 06/15/19 06/15/19 History insulin aspart U-100 [Novolog 12 unit SUBCUT AC 06/15/19 06/15/19 History Flexpen U-100 Insulin] insulin detemir U-100 [Levemir 70 unit SUBCUT HS 06/15/19 06/15/19 History FlexTouch U-100 Insuln] levothyroxine 200 mcg PO DAILY 06/15/19 06/15/19 History losartan 100 mg PO DAILY 06/15/19 06/15/19 History omeprazole 40 mg PO DAILY 06/15/19 06/15/19 History ropinirole 0.5 mg PO HS 06/15/19 06/15/19 History sertraline 100 mg PO DAILY 06/15/19 06/15/19 History Past Med/Surg History Medical History Diabetes High cholesterol (Chronic) Unstable angina Surgical History CAD S/P percutaneous coronary angioplasty Family History Other No pertinent family history in first degree relatives Social History Preferred Language: Armenian Communication Ability: Effective Barrel Marker Required: No Beliefs That Will Affect Care: None Current Living Situation: Alone Other Information That Helps Us Care for You: No Feels Safe at Home: Yes Safety Concerns: Feels Safe At This Time Smoking Status: Former smoker Tobacco Type: cigarettes ; Cigarettes Per Day: 40 ; Do You Dip or Chew Tobacco: No ; Smoking End Date: 1991 ; Second Hand Exposure: No ; Tobacco Cessation Education Requested by Patient: No Hx Alcohol Use: Yes Hx Substance Use: No Review of Systems Review of Systems: All systems reviewed & are unremarkable except as noted in HPI & below .pef Physical Exam Physical Exam: General- oriented x 3, somewhat weak but not in distress, speaks in sentences with no effort or accessory muscle use Obese Head- atraumatic Eyes- PERRL, EOMI, anicteric ENT- oropharynx clear Neck- supple, no JVD, no adenopathy, no thyromegaly; carotids +2/2, no bruits appreciated Lungs- clear to auscultation bilaterally, no rales/wheezes Heart- normal rate, regular rhythm; no murmur, no gallop, no rub appreciated Abdomen- normal bowel sounds, nondistended, soft, nontender, no masses or hepatosplenomegaly Extremities- no pretibial edema, no calf tenderness; peripheral pulses intact Positive hematoma on the right upper arm, left dorsal forearm Neuro- alert, oriented x 3; CN 2-12 grossly intact; motor 5/5 bilaterally;sensation 100% on all extremities; no other gross focal neurologic deficits Skin- warm & dry Results & Data Vital Signs (Past 12 Hours) Vital Signs Temp Pulse Pulse Resp BP BP Pulse Ox 06/15/19 18:57 68 20 168/72 H 97 06/15/19 17:30 63 18 180/75 H 98 06/15/19 16:06 61 18 186/95 H 99 06/15/19 15:06 56 L 56 L 18 163/79 H 99 06/15/19 14:18 36.3 C L 63 20 138/79 100 Laboratory Results Laboratory Results - last 24 hr 06/15/19 06/15/19 06/15/19 15:08 15:12 15:12 WBC 9.41 RBC 4.18 L Hgb 11.6 L Hct 35.0 L MCV 83.7 MCH 27.8 MCHC 33.1 RDW Std Deviation 44.3 RDW Coeff of Kimberly 14.5 Plt Count 450 H MPV 10.0 Immature Gran % (Auto) 0.1 Neut % (Auto) 57.1 Lymph % (Auto) 29.4 [place] % (Auto) 8.7 Eos % (Auto) 4.1 Baso % (Auto) 0.6 Immature Gran # (Auto) 0.01 Neut # (Auto) 5.36 Lymph # (Auto) 2.77 [place] # (Auto) 0.82 H Eos # (Auto) 0.39 Baso # (Auto) 0.06 PT 10.3 INR 1.0 APTT 27.3 PTT Ratio 1.0 Sodium Potassium Chloride Carbon Dioxide Anion Gap BUN Creatinine Est Cr Clr Drug Dosing Est GFR ( Amer) Est GFR (Non-Af Amer) BUN/Creatinine Ratio Glucose POC Glucose 72 Calcium Magnesium Total Bilirubin AST ALT Alkaline Phosphatase Total Creatine Kinase CK-MB (CK-2) CK/CKMB % Calc Troponin I Total Protein Albumin Globulin Albumin/Globulin Ratio TSH Free T4 06/15/19 06/15/19 06/15/19 15:12 17:11 17:33 WBC RBC Hgb Hct MCV MCH MCHC RDW Std Deviation RDW Coeff of Kimberly Plt Count MPV Immature Gran % (Auto) Neut % (Auto) Lymph % (Auto) [place] % (Auto) Eos % (Auto) Baso % (Auto) Immature Gran # (Auto) Neut # (Auto) Lymph # (Auto) [place] # (Auto) Eos # (Auto) Baso # (Auto) PT INR APTT PTT Ratio Sodium 140 Potassium 4.2 Chloride 110 H Carbon Dioxide 25 Anion Gap 5.0 BUN 43 H Creatinine 3.24 H Est Cr Clr Drug Dosing 21.3 Est GFR ( Amer) 16.8 Est GFR (Non-Af Amer) 14.5 BUN/Creatinine Ratio 13.2 Glucose 72 POC Glucose 65 L* 72 Calcium 8.9 Magnesium 2.5 H Total Bilirubin 0.3 AST 20 ALT 37 Alkaline Phosphatase 78 Total Creatine Kinase 200 H CK-MB (CK-2) 3.9 H CK/CKMB % Calc 2.0 Troponin I 0.043 Total Protein 6.6 Albumin 2.9 L Globulin 3.7 Albumin/Globulin Ratio 0.8 L TSH 110.000 H Free T4 0.29 L Code Status & VTE Plan VTE Prophylaxis Plan VTE Prophylaxis will be ordered: Yes (1) Syncope Syncope type: unspecified Qualified Code(s): R55 - Syncope and collapse
[2019-06-15] MEDS ORDERED: ACETAMINOPHEN 325 MG TAB PO PRN (19:29)
[2019-06-15] MEDS ORDERED: ONDANSETRON INJ 2 MG/ML 2 ML VIAL IV PRN (19:29)
[2019-06-15] MEDS ORDERED: LEVOTHYROXINE SODIUM 100 MCG in SYRINGE 0 ML IV STA (19:51)
[2019-06-15] MEDS: AMLODIPINE BESYLATE 5 MG TAB PO SCH (20:03)
[2019-06-15] MEDS: ROPINIROLE HCL 0.25 MG TABLET PO SCH (20:03)
[2019-06-15] MEDS: FLUTICASONE PROPIONATE NA SPR 16 GM BTL SCH (20:03)
[2019-06-15] MEDS: carvediloL 12.5 MG TAB PO SCH (20:04)
[2019-06-15] MEDS: PANTOprazole 40 MG TAB PO SCH (20:04)
[2019-06-15 20:16] LABS: Calcium 8.7 mg/dl (8.5-10.1); Creatinine Clr Calc Pharmacy 20.4 ml/min; Est GFR (African American) 15.9; Est GFR (Non-African American) 13.7
[2019-06-15] MEDS: D5W AND NSS 1,000 ML IV SCH (21:03)
--- NOTE | 2019-06-15 22:43 | Emergency Department Note ---
Entered by Gisell Delcid acting as a scribe for History of Present Illness General Chief complaint: Syncope Stated complaint: SYNCOPE 06/13,PAIN IN ARMS&STOMACH,SORES IN MOUTH Time Seen by Provider: 06/15/19 14:42 Source: patient and family (daughter) History of Present Illness Onset (ago): day(s) 2 Location: head, upper extremity and lower extremity Pain Consistency: + other (episode) Maximum Pain Intensity: 0 Quality: + other (syncope) Associated symptoms: + other (Positive feeling of wooziness, double vision. Negative difficulty speaking, urinary symptoms. ) The patient is a 63 year old female who presents to the ED with complaints of syncope. 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 Her daughter states the patient was found on the ground by her family completely undressed with all of her medications on the ground. Her daughter states it is unknown how long the patient was on the ground or what happened, however, her daughter believes the patient was not on the ground for more than 6 hours. The patient reports she does not remember the episode but states she had heartburn the day before her episode. She notes she is a diabetic and has not been checking her blood sugars regularly. She takes fast acting insulin. The patient reports she gets very warm and night and has a tendency to strip herself of her clothing. She states she is "woozy" and has double vision. She denies any chest pain, nausea, vomiting, difficulty speaking, urinary symptoms. Her daughter states her mother is "off" in that she acting slightly different than her baseline. Home Medications Home Medications Medication Instructions Recorded Confirmed Type amlodipine 5 mg PO DAILY 06/15/19 06/15/19 History aspirin 81 mg PO DAILY 06/15/19 06/15/19 History atorvastatin 40 mg PO DAILY 06/15/19 06/15/19 History bupropion HCl 300 mg PO DAILY 06/15/19 06/15/19 History carvedilol 12.5 mg PO DAILY 06/15/19 06/15/19 History clopidogrel 75 mg PO DAILY 06/15/19 06/15/19 History fluticasone propionate 1 spray INTRANASAL HS 06/15/19 06/15/19 History furosemide 40 mg PO BID 06/15/19 06/15/19 History insulin aspart U-100 [Novolog 12 unit SUBCUT AC 06/15/19 06/15/19 History Flexpen U-100 Insulin] insulin detemir U-100 [Levemir 70 unit SUBCUT HS 06/15/19 06/15/19 History FlexTouch U-100 Insuln] levothyroxine 200 mcg PO DAILY 06/15/19 06/15/19 History losartan 100 mg PO DAILY 06/15/19 06/15/19 History omeprazole 40 mg PO DAILY 06/15/19 06/15/19 History ropinirole 0.5 mg PO HS 06/15/19 06/15/19 History sertraline 100 mg PO DAILY 06/15/19 06/15/19 History Allergies Allergy/AdvReac Type Severity Reaction Status Date / Time adhesive Allergy Unknown SKIN Verified 06/15/19 16:34 WELTS/PRURITIS metformin AdvReac Unknown DIARRHEA Verified 06/15/19 16:34 Past Med/Surg History Medical History Diabetes High cholesterol (Chronic) Unstable angina Surgical History CAD S/P percutaneous coronary angioplasty Family History Other No pertinent family history in first degree relatives Social History Preferred Language: Egyptian Communication Ability: Effective Esl Teacher Required: No Beliefs That Will Affect Care: None Current Living Situation: Alone Other Information That Helps Us Care for You: No Feels Safe at Home: Yes Safety Concerns: Feels Safe At This Time Smoking Status: Former smoker Tobacco Type: cigarettes ; Cigarettes Per Day: 40 ; Do You Dip or Chew Tobacco: No ; Smoking End Date: 1991 ; Second Hand Exposure: No ; Tobacco Cessation Education Requested by Patient: No Hx Alcohol Use: Yes Hx Substance Use: No Review of Systems See HPI for pertinent positives & negatives. and A total of 10 systems reviewed and were otherwise negative Physical Exam Vital Signs Vital Signs - 24 hr 06/15/19 14:18 06/15/19 14:45 06/15/19 15:06 Temperature 36.3 C L Temperature Source Oral Pulse Rate 63 56 L Pulse Rate [Left] 56 L Respiratory Rate 20 18 Respiratory Effort / Characteristics Non-Labored Spontaneous Respiratory Depth Normal Blood Pressure 138/79 Blood Pressure [Right Arm] 163/79 H Blood Pressure Mean 98 Blood Pressure Mean [Right Arm] 107 Blood Pressure Position Sitting Blood Pressure Position [Right Arm] Lying Pulse Oximetry 100 99 Oxygen Delivery Method Room Air Room Air Room Air Sepsis Recent Fever Within 48 Hours No Sepsis New/Unexplained Change in Mental Status No Sepsis Action Taken by Nursing No Action Required 06/15/19 16:06 06/15/19 17:30 Temperature Temperature Source Pulse Rate Pulse Rate [Left] 61 63 Respiratory Rate 18 18 Respiratory Effort / Characteristics Non-Labored Spontaneous Non-Labored Spontaneous Respiratory Depth Normal Blood Pressure Blood Pressure [Right Arm] 186/95 H 180/75 H Blood Pressure Mean Blood Pressure Mean [Right Arm] 125 110 Blood Pressure Position Blood Pressure Position [Right Arm] Lying Sitting Pulse Oximetry 99 98 Oxygen Delivery Method Room Air Room Air Sepsis Recent Fever Within 48 Hours Sepsis New/Unexplained Change in Mental Status Sepsis Action Taken by Nursing General: Non-ill appearing older female in no acute distress. Alert to person, place, and year. Daughter feels her mentation is slightly off compared to baseline. HEENT: Normal cephalic atraumatic. Pupils are equal round and reactive to light. Extraocular movements are intact. Oropharynx is pink with moist mucous membranes. No swelling of the mouth lips or tongue. Neck: Supple with a midline trachea. No meningeal signs or stiffness, no JVD or bruits. No Stridor. Chest: Clear to auscultation bilaterally. No wheezes or rhonchi. No increased work of breathing. Heart: regular rate and rhythm. Abdomen: Soft nontender, nondistended without rebound guarding or rigidity. Extremities: No cyanosis clubbing or edema. No calf tenderness or asymmetry Spine/Back. Non tender to palpation. No CVA tenderness Skin: Good turgor without rashes. Bruise on her right proximal arm and left forearm Neurologic exam: Cranial nerves two through 12 are intact. Motor and sensation are intact and symmetrical throughout. Normal speech although feels it is harder to get the words out. No trouble naming objects. Finger to nose intact. No tremors. Course Course 1444: Past medical records reviewed. The patient was evaluated in room C6. A complete history and physical exam was performed. 1612: Discussed the patient's case with Dr. Mazariegos, [facility]. The patient will be evaluated for further management. Administered Medications Amlodipine Besylate (Norvasc) 5 mg PO DAILY [facility] Stop: 07/15/19 19:28 Last Admin: 06/15/19 20:03 Dose: 5 mg Documented by: [id number] Carvedilol (Coreg) 12.5 mg PO DAILY [facility] Stop: 07/15/19 19:28 Last Admin: 06/15/19 20:04 Dose: 12.5 mg Documented by: [id number] Fluticasone Propionate (Flonase) 1 sprays NA HS [facility] Stop: 07/15/19 20:59 Last Admin: 06/15/19 20:03 Dose: 1 sprays Documented by: [id number] Dextrose/Sodium Chloride (D5w And Nss) 1,000 mls @ 80 mls/hr IV .[id number] [facility] Stop: 07/15/19 19:59 Last Admin: 06/15/19 21:03 Dose: 80 mls/hr Documented by: [id number] Pantoprazole Sodium (Protonix) 40 mg PO QAM [facility] Stop: 07/15/19 19:44 Last Admin: 06/15/19 20:04 Dose: 40 mg Documented by: [id number] Ropinirole HCl (Requip) 0.5 mg PO HS [facility] Stop: 07/15/19 20:59 Last Admin: 06/15/19 20:03 Dose: 0.5 mg Documented by: [id number] Discontinued Medications Sodium Chloride (Nss 1000ml) 1,000 mls @ 50 mls/hr IV .Q20H [facility] Stop: 07/15/19 14:59 Last Infusion: 06/15/19 19:13 Dose: 0 mls/hr Documented by: [id number] Admin: 06/15/19 15:15 Dose: 50 mls/hr Documented by: [id number] Levothyroxine Sodium 100 mcg/ (Syringe) 5 mls @ 2 mls/min IV NOW STA Stop: 06/15/19 19:53 Last Admin: 06/15/19 20:04 Dose: 2 mls/min Documented by: [id number] Medical Decision Making Differential Diagnosis Differential diagnosis: Etiologies such as syncope seizure, arrhythmia, rhabdo, electrolyte or metabolic abnormality, CVA, medication issue, as well as others were entertained. Medical Records Attestation: I reviewed the patient's medical records. [facility] records reviewed Home Medications Current Medication List: was personally reviewed by me Laboratory Data Attestation: I reviewed the patient's lab results. Result diagrams: 06/15/19 15:12 06/15/19 19:34 Lab Results 06/15/19 06/15/19 06/15/19 Range/Units 15:08 15:12 15:12 WBC 9.41 (4.8-10.8) K/uL RBC 4.18 L (4.2-5.4) M/uL Hgb 11.6 L (12.0-16.0) g/dL Hct 35.0 L (37-47) % MCV 83.7 (80-100) fL MCH 27.8 (25-34) pg MCHC 33.1 (32-36) g/dL RDW Std Deviation 44.3 (36.4-46.3) fL RDW Coeff of Kimberly 14.5 (11.5-14.5) % Plt Count 450 H (130-400) K/uL MPV 10.0 (7.4-10.4) fL Immature Gran % (Auto) 0.1 % Neut % (Auto) 57.1 % Lymph % (Auto) 29.4 % [place] % (Auto) 8.7 % Eos % (Auto) 4.1 % Baso % (Auto) 0.6 % Immature Gran # (Auto) 0.01 (0.00-0.02) K/uL Neut # (Auto) 5.36 (1.4-6.5) K/uL Lymph # (Auto) 2.77 (1.2-3.4) K/uL [place] # (Auto) 0.82 H (0.11-0.59) K/uL Eos # (Auto) 0.39 (0-0.5) K/uL Baso # (Auto) 0.06 (0-0.2) K/uL PT 10.3 (9.0-12.0) Seconds INR 1.0 (0.9-1.1) APTT 27.3 (21.0-31.0) Seconds PTT Ratio 1.0 Sodium (136-145) mmol/L Potassium (3.5-5.1) mmol/L Chloride (98-107) mmol/L Carbon Dioxide (21-32) mmol/L Anion Gap (3-11) BUN (7-18) mg/dl Creatinine (0.6-1.2) mg/dl Est Cr Clr Drug Dosing ml/min Est GFR ( Amer) Est GFR (Non-Af Amer) BUN/Creatinine Ratio (10-20) Glucose (70-99) mg/dl POC Glucose 72 (70-99) mg/dl Calcium (8.5-10.1) mg/dl Magnesium (1.8-2.4) mg/dl Total Bilirubin (0.2-1) mg/dl AST (15-37) U/L ALT (12-78) U/L Alkaline Phosphatase (45-117) U/L Total Creatine Kinase (26-192) U/L CK-MB (CK-2) (0.5-3.6) ng/ml CK/CKMB % Calc (0-3.0) Troponin I (0-0.045) ng/ml Total Protein (6.4-8.2) gm/dl Albumin (3.4-5.0) gm/dl Globulin (2.5-4.0) gm/dl Albumin/Globulin Ratio (0.9-2) TSH (0.300-4.500) uIu/ml Free T4 (0.8-1.6) ng/dl 06/15/19 06/15/19 06/15/19 Range/Units 15:12 17:11 17:33 WBC (4.8-10.8) K/uL RBC (4.2-5.4) M/uL Hgb (12.0-16.0) g/dL Hct (37-47) % MCV (80-100) fL MCH (25-34) pg MCHC (32-36) g/dL RDW Std Deviation (36.4-46.3) fL RDW Coeff of Kimberly (11.5-14.5) % Plt Count (130-400) K/uL MPV (7.4-10.4) fL Immature Gran % (Auto) % Neut % (Auto) % Lymph % (Auto) % [place] % (Auto) % Eos % (Auto) % Baso % (Auto) % Immature Gran # (Auto) (0.00-0.02) K/uL Neut # (Auto) (1.4-6.5) K/uL Lymph # (Auto) (1.2-3.4) K/uL [place] # (Auto) (0.11-0.59) K/uL Eos # (Auto) (0-0.5) K/uL Baso # (Auto) (0-0.2) K/uL PT (9.0-12.0) Seconds INR (0.9-1.1) APTT (21.0-31.0) Seconds PTT Ratio Sodium 140 (136-145) mmol/L Potassium 4.2 (3.5-5.1) mmol/L Chloride 110 H (98-107) mmol/L Carbon Dioxide 25 (21-32) mmol/L Anion Gap 5.0 (3-11) BUN 43 H (7-18) mg/dl Creatinine 3.24 H (0.6-1.2) mg/dl Est Cr Clr Drug Dosing 21.3 ml/min Est GFR ( Amer) 16.8 Est GFR (Non-Af Amer) 14.5 BUN/Creatinine Ratio 13.2 (10-20) Glucose 72 (70-99) mg/dl POC Glucose 65 L* 72 (70-99) mg/dl Calcium 8.9 (8.5-10.1) mg/dl Magnesium 2.5 H (1.8-2.4) mg/dl Total Bilirubin 0.3 (0.2-1) mg/dl AST 20 (15-37) U/L ALT 37 (12-78) U/L Alkaline Phosphatase 78 (45-117) U/L Total Creatine Kinase 200 H (26-192) U/L CK-MB (CK-2) 3.9 H (0.5-3.6) ng/ml CK/CKMB % Calc 2.0 (0-3.0) Troponin I 0.043 (0-0.045) ng/ml Total Protein 6.6 (6.4-8.2) gm/dl Albumin 2.9 L (3.4-5.0) gm/dl Globulin 3.7 (2.5-4.0) gm/dl Albumin/Globulin Ratio 0.8 L (0.9-2) TSH 110.000 H (0.300-4.500) uIu/ml Free T4 0.29 L (0.8-1.6) ng/dl Imaging Data Radiologist's Impression: Radiology results as stated below per my review and the radiologist's interpretation: XR chest 1V portable CLINICAL HISTORY: Altered mental status COMPARISON STUDY: 10/30/2016 FINDINGS: The heart remains borderline enlarged. There is no failure. There is no focal pulmonary consolidation. There are no pleural effusions.[ IMPRESSION: No active disease in the chest. ACT 112: Negative or not required by law. Electronically signed by: Jose Francisco Pfeiffer M.D. 06/15/2019 3:[address] head/brain wo con CLINICAL HISTORY: 63 years-old Female presenting with Stroke evaluation. TECHNIQUE: Multidetector CT imaging of the head was performed without the use of intravenous contrast. IV contrast: None. One or more dose lowering techniques were used consistent with the principles of ALARA (as low as reasonably achievable), including automatic exposure control, mA or kV adjustment to individual patient size, and/or use of iterative reconstruction. COMPARISON: None. CT DOSE (mGy.cm): The estimated cumulative dose is 1028.89 mGy.cm. FINDINGS: Global Logistics Analyst topogram: Unremarkable. Ventricles and sulci normal in size. No hemorrhage. Brain parenchyma normal in appearance with preserved singh-white differentiation. No acute territorial infarct. No mass effect or midline shift. No extra-axial fluid collection. Paranasal sinuses and mastoid air cells clear. Calvarium intact. IMPRESSION: 1. No acute intracranial abnormality. ACT 112: Negative or not required by law. Electronically signed by: Bart Wilson M.D. 06/15/2019 3:36 PM ECG Data Attestation: I personally reviewed and interpreted this ECG as follows: Indication: + syncope Rate (beats per minute): 57 Rhythm: + sinus bradycardia ECG ST segments: + T-wave inversions (Lateral); no ST elevation Comparison ECG Date: from (10/31/16) Change: no significant change Blood Pressure Blood Pressure Findings: Elevated blood pressure Blood Pressure Disposition: further management by hospitalist [facility] Narrative This patient comes in as described above. She is brought in by her daughter. She was at her primary care physician's office and sent over today for further evaluation. She has a complex medical history that includes diabetes and cardiac disease as well as a history of a stroke. She had an episode on Friday night where she was found on the floor and she was incontinent and confused. Since then she has been a little bit off but has had no further symptoms. She has no focal numbness or weakness. No fever or chills. No chest pain or shortness of breath. IV asked established and she was hydrated with a 1 L IV normal saline bolus. CAT scan of her head was unremarkable and she has no significant neurologic deficits. She is well outside of the TPA/stroke alert window and so far and there is no evidence to suggest a stroke acutely. EKG does not show acute ischemic changes or ectopy, she has some old T wave inversions. Her troponins not elevated. She was noticed to have some renal failure with a creatinine of above 3 which is new for her according to her old labs here. Her TSH is also greater than 100 and she could be hypothyroid and have some problems related to myxedema. I do think she needs to be admitted for further treatment and evaluation. I have consult Dr. Mckeon from [facility] to see her in the ER for these measures. Impression & Plan Syncope, Weakness, Renal failure, Hypothyroidism, Diabetes mellitus Discharge Plan Visit Data *Final* Discharge Date/Time: 06/15/19 18:57 Chief Complaint: Syncope Stated Complaint: SYNCOPE 06/13,PAIN IN ARMS&STOMACH,SORES IN MOUTH ED Provider: Nikolas Machado Discharge Problem: Syncope, Weakness, Renal failure, Hypothyroidism, Diabetes mellitus Patient Disposition: Admitted As Inpatient Discharge Instructions Interventions: ED Discharge Assessment Last Done: 06/15/19 18:57 Discharge Problem: Syncope Qualifiers: Syncope type: unspecified Qualified Code(s): R55 - Syncope and collapse Renal failure Qualifiers: Renal failure chronicity: unspecified chronicity Qualified Code(s): N19 - Unspecified kidney failure Hypothyroidism Qualifiers: Hypothyroidism type: unspecified Qualified Code(s): E03.9 - Hypothyroidism, unspecified Diabetes mellitus Qualifiers: Diabetes mellitus type: type 2 Diabetes mellitus terminal carman insulin use: with prison use Diabetes mellitus complication status: without complication Qualified Code(s): E11.9 - Type 2 diabetes mellitus without complications The scribe's documentation has been prepared under my direction and personally reviewed by me in its entirety. I confirm that the note above accurately reflects all work, treatment, procedures, and medical decision making performed by me.
--- NOTE | 2019-06-15 23:03 | Magnetic Resonance Report ---
MR brain wo con HISTORY: Mental status change ALTERED MENTAL STATUS TECHNIQUE: Multiplanar multisequence MRI of the brain was performed without the use of contrast. COMPARISON STUDY: CT brain 06/15/2002 FINDINGS: There are no areas of restricted diffusion to suggest acute infarction. The midline structu res are intact. The paranasal sinuses are clear. The mastoid air cells are clear. The ventricles and sulci are within normal limits for age. There is no mass, hematoma, midline shift. The major vascular flow-voids at the skull base are well maintained. Age-related chronic small vessel change. Mild age-related atrophy. IMPRESSION: 1. No acute intracranial abnormality. 2. Age-related atrophy and chronic small vessel change. ACT 112: Negative or not required by law. The above report was generated using voice recognition software. It may contain grammatical, syntax or spelling errors. Electronically signed by: Jose Antonio Graves M.D. 06/15/2019 11:01 PM
--- NOTE | 2019-06-15 23:13 | Electrocardiogram Report ---
Test Reason : Blood Pressure : / mmHG Vent. Rate : 057 BPM Atrial Rate : 057 BPM P-R Int : 162 ms QRS Dur : 086 ms QT Int : 466 ms P-R-T Axes : 039 -11 105 degrees QTc Int : 453 ms Sinus bradycardia Possible Inferior infarct , age undetermined T wave abnormality, consider lateral ischemia Abnormal ECG When compared with ECG of 31-OCT-2016 06:19, No significant change was found Confirmed by Teodoro Handy ([id number]) on 06/15/2019 11:13:13 PM Referred By: REFERRED SELF Confirmed By:Teodoro Handy
[2019-06-15 23:36] LABS: Appearance Urine Cloudy (Clear); Bilirubin Urine Negative (Negative); Blood Urine 1+ (Negative); Color Urine Yellow; Epithelial Cell Urine Auto >30 /lpf (0-5); Glucose Urine UA 1+ (Negative); Ketones Urine Trace (Negative); Leukocyte Esterase Urine Negative (Negative); Nitrite Urine Negative (Negative); Protein Urine 4+ (Negative); Specific Gravity Urine 1.027 (1.000-1.030); Urobilinogen Urine Negative (Negative); pH Urine 5.5 (4.5-7.5)
[2019-06-16 00:13] LABS: Bacteria Urine Automated 1+ (Negative)
[2019-06-16 00:19] LABS: Calcium Oxalate Crystals Urine Present (None Prsent)
[2019-06-16 06:00] LABS: Basophils # (auto) 0.05 K/uL (0-0.2); Basophils % (auto) 0.6 %; Eosinophils # (auto) 0.49 K/uL (0-0.5); Eosinophils % (auto) 5.8 %; Hematocrit (blood only) 31.5 % (37-47); Hemoglobin 10.2 g/dL (12.0-16.0); Immature Granulocytes # (auto) 0.02 K/uL (0.00-0.02); Immature Granulocytes % (auto) 0.2 %; Lymphocytes # (auto) 2.87 K/uL (1.2-3.4); Lymphocytes % (auto) 34.2 %; Mean Corpuscular Hemoglobin 27.5 pg (25-34); Mean Corpuscular Hgb Conc 32.4 g/dL (32-36); Mean Corpuscular Volume 84.9 fL (80-100); Mean Platelet Volume 10.2 fL (7.4-10.4); Monocytes # (auto) 0.68 K/uL (0.11-0.59); Monocytes % (auto) 8.1 %; Neutrophils # (auto) 4.27 K/uL (1.4-6.5); Neutrophils % (auto) 51.1 %; Platelet Count 382 K/uL (130-400); RDW Coefficient of Variation 14.7 % (11.5-14.5); RDW Standard Deviation 45.5 fL (36.4-46.3); Red Blood Count 3.71 M/uL (4.2-5.4); White Blood Count 8.38 K/uL (4.8-10.8)
[2019-06-16 06:27] LABS: BUN Creatinine Ratio 12.1 (10-20); Calcium 7.9 mg/dl (8.5-10.1); Creatinine Clr Calc Pharmacy 20.7 ml/min; Est GFR (African American) 16.2; Est GFR (Non-African American) 13.9; Potassium 4.1 mmol/L (3.5-5.1)
[2019-06-16] MEDS: carvediloL 12.5 MG TAB PO SCH (08:05)
[2019-06-16] MEDS: CLOPIDOGREL BISULFATE 75 MG TAB PO SCH (08:05)
[2019-06-16] MEDS: AMLODIPINE BESYLATE 5 MG TAB PO SCH (08:05)
[2019-06-16] MEDS: PANTOprazole 40 MG TAB PO SCH (08:05)
[2019-06-16] MEDS: ASPIRIN 81 MG ECTAB PO SCH (08:05)
[2019-06-16] MEDS ORDERED: ATORVASTATIN 40 MG TAB PO SCH (09:00)
[2019-06-16] MEDS: D5W AND NSS 1,000 ML IV SCH (10:11)
--- NOTE | 2019-06-16 16:26 | Electroencephalogram ---
EEG Procedure Note Date of Service June 16, 2019 Start / End Times Start Time: 0 800 End Time: 0 830 Referring Physician Theo Sun MD History Confusion question seizures Home Medication List Home Medications Medication Instructions Recorded Confirmed Type amlodipine 5 mg PO DAILY 06/15/19 06/15/19 History aspirin 81 mg PO DAILY 06/15/19 06/15/19 History atorvastatin 40 mg PO DAILY 06/15/19 06/15/19 History bupropion HCl 300 mg PO DAILY 06/15/19 06/15/19 History carvedilol 12.5 mg PO DAILY 06/15/19 06/15/19 History clopidogrel 75 mg PO DAILY 06/15/19 06/15/19 History fluticasone propionate 1 spray INTRANASAL 06/15/19 06/15/19 History furosemide 40 mg PO BID 06/15/19 06/15/19 History insulin aspart U-100 [Novolog 12 unit SUBCUT 06/15/19 06/15/19 History Flexpen U-100 Insulin] insulin detemir U-100 [Levemir 70 unit SUBCUT 06/15/19 06/15/19 History FlexTouch U-100 Insuln] levothyroxine 200 mcg PO DAILY 06/15/19 06/15/19 History losartan 100 mg PO DAILY 06/15/19 06/15/19 History omeprazole 40 mg PO DAILY 06/15/19 06/15/19 History ropinirole 0.5 mg PO 06/15/19 06/15/19 History sertraline 100 mg PO DAILY 06/15/19 06/15/19 History Inpatient Medication List Amlodipine Besylate (Norvasc) 5 mg PO DAILY [facility] Stop: 07/15/19 19:28 Last Admin: 06/16/19 08:05 Dose: 5 mg Documented by: [id number] Admin: 06/15/19 20:03 Dose: 5 mg Documented by: [id number] Aspirin (Ecotrin Ectab) 81 mg PO DAILY [facility] Stop: 07/16/19 08:59 Last Admin: 06/16/19 08:05 Dose: 81 mg Documented by: [id number] Atorvastatin Calcium (Lipitor) 40 mg PO DAILY [facility] Stop: 07/16/19 08:59 Last Admin: 06/16/19 08:05 Dose: 40 mg Documented by: [id number] Carvedilol (Coreg) 12.5 mg PO DAILY [facility] Stop: 07/15/19 19:28 Last Admin: 06/16/19 08:05 Dose: 12.5 mg Documented by: [id number] Admin: 06/15/19 20:04 Dose: 12.5 mg Documented by: [id number] Clopidogrel Bisulfate (Plavix) 75 mg PO DAILY [facility] Stop: 07/16/19 08:59 Last Admin: 06/16/19 08:05 Dose: 75 mg Documented by: [id number] Fluticasone Propionate (Flonase) 1 sprays NA HS [facility] Stop: 07/15/19 20:59 Last Admin: 06/15/19 20:03 Dose: 1 sprays Documented by: [id number] Dextrose/Sodium Chloride (D5w And Nss) 1,000 mls @ 80 mls/hr IV .[id number] [facility] Stop: 07/15/19 19:59 Last Admin: 06/16/19 10:11 Dose: 80 mls/hr Documented by: [id number] Infusion: 06/16/19 10:11 Dose: 80 mls/hr Documented by: [id number] Infusion: 06/15/19 23:08 Dose: 80 mls/hr Documented by: [id number] Infusion: 06/15/19 22:19 Dose: 0 mls/hr Documented by: [id number] Admin: 06/15/19 21:03 Dose: 80 mls/hr Documented by: [id number] Pantoprazole Sodium (Protonix) [facility] Stop: 07/15/19 19:44 Last Admin: 06/16/19 08:05 Dose: 40 mg Documented by: [id number] Admin: 06/15/19 20:04 Dose: 40 mg Documented by: [id number] Ropinirole HCl (Requip) 0.5 mg PO [facility] Stop: 07/15/19 20:59 Last Admin: 06/15/19 20:03 Dose: 0.5 mg Documented by: [id number] Discontinued Medications Sodium Chloride (Nss 1000ml) 1,000 mls @ 50 mls/hr IV .Q20H [facility] Stop: 07/15/19 14:59 Last Infusion: 06/15/19 19:13 Dose: 0 mls/hr Documented by: [id number] Admin: 06/15/19 15:15 Dose: 50 mls/hr Documented by: [id number] Levothyroxine Sodium 100 mcg/ (Syringe) 5 mls @ 2 mls/min IV NOW STA Stop: 06/15/19 19:53 Last Admin: 06/15/19 20:04 Dose: 2 mls/min Documented by: [id number] Description This is a 21 electrode EEG with a single channel dedicated to limited EKG. The electrodes were placed in accordance with the International 10-20 system. This EEG was done as a bedside recording is a reasonable technical quality with fewer no muscle movement artifacts. Video analysis of patient movement and behavior was obtained. Photic stimulation was performed. Drowsiness is recorded episodically under these conditions and during wakefulness there is evidence for normal-appearing background rhythm in the alpha range of up to 9 Hz and maximum frequency of up to 30 V a maximum amplitude. This maximum posterior head regions bilaterally symmetrical. Central symmetrical mid frequency modest voltage theta activity is seen in beta activity seen bifrontally During drowsiness there is a buildup of slow wave activity and a reduction of the background alpha rhythm but no other significant findings of pathologic nature are seen Photic stimulation provokes a modest driving response without a photoparoxysmal or photo myogenic component At no time during the tracing is are clear evidence for potentially epileptogenic activity Interpretation This is a normal EEG during wakefulness and drowsiness without evidence for focal or generalized encephalopathy without evidence for potentially e pileptogenic activity Clinical Correlation Normal EEG during wakefulness and drowsiness no evidence for seizure activity seen nor is evidence for a focal or generalized encephalopathy Edgar Rankin MD
--- NOTE | 2019-06-16 19:07 | Hospitalist Progress Note ---
Date of Service June 16, 2019 Assessment & Plan (1) Altered mental status: Presented with confusion. No acute neuro event per CT or MRI. EEG normal. Altered mental status most likely secondary to severe hypothyroidism. Hypoglycemia may have been contributing factor. (2) Hypothyroidism: History of hypothyroidism, prescribed replacement with levothyroxine 200 mcg daily. TSH 110. Free T4 0.29. Patient states that she has not been taking her levothyroxine, but not sure why or when she stopped it. Serum cortisol 10. Received IV levothyroxine admission. May be able to tolerate full dose of replacement, but has history of CAD. Probably prudent to replace initially with 1/2 dose of 100 mcg daily and titrate to full dose as tolerated. (3) Diabetes mellitus type 2 with complications: DM type 2 managed with Levemir and NovoLog. Glucose as low as 65 in ED. May have been experiencing hypoglycemia due to prolonged half life of insulin from hypothyroidism. Titrate insulin dosing. (4) Coronary artery disease: History of CAD, s/p PCI. No anginal symptoms. Continue aspirin, clopidogrel, carvedilol, statin. (5) Acute kidney injury: History of CKD IV with baseline creatinine of Creatinine at time of admission 3.24. Hold furosemide. IV fluids. Follow. Outpatient follow-up with Nephrology. (6) CKD (chronic kidney disease), stage IV: As discussed above. (7) Dyslipidemia: Continue atorvastatin. Decrease dose temporarily due to severe hypothyroidism. (8) Fall: Fall at home. Underlying etiologies may have been related to weakness from hypothyroidism, hypoglycemia, orthostasis. No acute findings on neuroimaging of head by CT and MRI. EEG normal. No significant arrhythmias on telemetry. PT / OT evaluations. Fall precautions. (9) DVT prophylaxis: SCD's. Ambulate. (10) Discharge planning issues: PT / OT evaluations. May need skilled care or rehab. Internal Medicine follow-up with Dr. Hennessy. Subjective Recheck for multiple problems. Patient seen in their room around 1850. Feels a little better. Still tired. No syncopal events. Telemetry data reviewed- SB 50's / SR 60's. Review of Systems: Constitutional- no fever. Cardiac- no chest pain. Pulmonary- no cough or SOB. GI- no nausea, vomiting, diarrhea, melena, hematochezia. - no urinary symptoms. Otherwise, as noted above. Physical Exam Constitutional: no acute distress Respiratory: no respiratory distress Auscultation: lungs clear to auscultation bilaterally Cardiovascular: Rate/Rhythm: regular rate and regular rhythm Heart Sounds: no gallop, no murmur and no cardiac rub Vessels: no JVD Extremities: no calf tenderness and no edema Gastrointestinal (Abdomen): normal bowel sounds, soft, nontender, no hepatosplenomegaly Skin: no rashes, warm and dry Psychiatric: Orientation: alert and oriented x 3 (mild confusion) Results & Data Vital Signs (Past 12 Hours) Vital Signs Temp Pulse Pulse Pulse Resp BP BP 06/16/19 15:39 36.6 C 57 L 18 152/72 H 06/16/19 15:37 55 L 06/16/19 11:24 36.5 C 53 L 20 156/83 H 06/16/19 08:00 36.7 C 58 L 20 167/84 H 06/16/19 07:26 20 Pulse Ox 06/16/19 15:39 99 06/16/19 15:37 06/16/19 11:24 96 06/16/19 08:00 99 06/16/19 07:26 96 Laboratory Results Laboratory Results - last 24 hr 06/16/19 06/16/19 06/16/19 05:37 05:37 08:28 WBC 8.38 RBC 3.71 L Hgb 10.2 L Hct 31.5 L MCV 84.9 MCH 27.5 MCHC 32.4 RDW Std Deviation 45.5 RDW Coeff of Kimberly 14.7 H Plt Count 382 MPV 10.2 Immature Gran % (Auto) 0.2 Neut % (Auto) 51.1 Lymph % (Auto) 34.2 Wallace % (Auto) 8.1 Eos % (Auto) 5.8 Baso % (Auto) 0.6 Immature Gran # (Auto) 0.02 Neut # (Auto) 4.27 Lymph # (Auto) 2.87 Wallace # (Auto) 0.68 H Eos # (Auto) 0.49 Baso # (Auto) 0.05 Sodium 140 Potassium 4.1 Chloride 112 H Carbon Dioxide 24 Anion Gap 4.0 BUN 41 H Creatinine 3.34 H Est Cr Clr Drug Dosing 20.7 Est GFR ( Amer) 16.2 Est GFR (Non-Af Amer) 13.9 BUN/Creatinine Ratio 12.1 Glucose 144 H POC Glucose 160 H Calcium 7.9 L 06/16/19 06/16/19 06/16/19 11:27 16:24 20:25 WBC RBC Hgb Hct MCV MCH MCHC RDW Std Deviation RDW Coeff of Kimberly Plt Count MPV Immature Gran % (Auto) Neut % (Auto) Lymph % (Auto) Wallace % (Auto) Eos % (Auto) Baso % (Auto) Immature Gran # (Auto) Neut # (Auto) Lymph # (Auto) Wallace # (Auto) Eos # (Auto) Baso # (Auto) Sodium Potassium Chloride Carbon Dioxide Anion Gap BUN Creatinine Est Cr Clr Drug Dosing Est GFR ( Amer) Est GFR (Non-Af Amer) BUN/Creatinine Ratio Glucose POC Glucose 267 H 231 H 190 H Calcium (1) Hypothyroidism Hypothyroidism type: unspecified Qualified Code(s): E03.9 - Hypothyroidism, unspecified
[2019-06-16] MEDS ORDERED: POTASSIUM CHLORIDE 10 MEQ in SODIUM CHLORIDE 0.9% 1000ML 1,000 ML IV SCH (19:45)
[2019-06-16] MEDS ORDERED: GLUCOSE 40% GEL 15 GM TUBE PO PRN (20:30)
[2019-06-16] MEDS ORDERED: CARBOHYDRATES FOR HYPOGLYCEMIA PO PRN (20:30)
[2019-06-16] MEDS ORDERED: GLUCOSE 10 TABS/TUBE PO PRN (20:30)
[2019-06-16] MEDS ORDERED: DEXTROSE 50% 50 ML SYRINGE IV PRN (20:30)
[2019-06-16] MEDS ORDERED: GLUCAGON FOR INJ 1 MG VIAL IM PRN (20:30)
[2019-06-16] MEDS: INSULIN GLARGINE SOLOSTAR 100 UNITS/ML 3 ML PEN SC SCH (20:52)
[2019-06-16] MEDS: INSULIN ASPART 100 UNITS/ML 3 ML PEN SC SCH (20:53)
[2019-06-16] MEDS: FLUTICASONE PROPIONATE NA SPR 16 GM BTL SCH (20:56)
[2019-06-16] MEDS: NYSTATIN POWDER 15GM BTL EXT PRN (20:56)
[2019-06-16] MEDS: SODIUM CHLORIDE 0.9% 1000ML 1,000 ML IV SCH (20:57)
[2019-06-16] MEDS: ROPINIROLE HCL 0.25 MG TABLET PO SCH (20:58)
[2019-06-17] MEDS: SODIUM CHLORIDE 0.9% 1000ML 1,000 ML IV SCH ×3 (05:00→21:15)
[2019-06-17] MEDS: LEVOTHYROXINE SODIUM 100 MCG TABLET PO SCH (06:29)
[2019-06-17] MEDS: PANTOprazole 40 MG TAB PO SCH (07:46)
[2019-06-17] MEDS: ASPIRIN 81 MG ECTAB PO SCH (07:46)
[2019-06-17] MEDS: ATORVASTATIN 10 MG TAB PO SCH (07:46)
[2019-06-17] MEDS: AMLODIPINE BESYLATE 5 MG TAB PO SCH (07:46)
[2019-06-17] MEDS: carvediloL 12.5 MG TAB PO SCH (07:47)
[2019-06-17] MEDS: CLOPIDOGREL BISULFATE 75 MG TAB PO SCH (07:48)
[2019-06-17 08:13] LABS: BUN Creatinine Ratio 12.6 (10-20); Calcium 8.1 mg/dl (8.5-10.1); Creatinine Clr Calc Pharmacy 27.3 ml/min; Est GFR (African American) 22.2; Est GFR (Non-African American) 19.1; Potassium 4.4 mmol/L (3.5-5.1)
[2019-06-17 08:55] LABS: Estimated Average Glucose 166 mg/dl; Hemoglobin A1C 7.4 % (4.5-5.6)
[2019-06-17] MEDS: INSULIN ASPART 100 UNITS/ML 3 ML PEN SC SCH ×4 (09:51→21:17)
[2019-06-17] MEDS: FLUTICASONE PROPIONATE NA SPR 16 GM BTL SCH (21:15)
[2019-06-17] MEDS: INSULIN GLARGINE SOLOSTAR 100 UNITS/ML 3 ML PEN SC SCH (21:16)
[2019-06-17] MEDS: ROPINIROLE HCL 0.25 MG TABLET PO SCH (21:16)
--- NOTE | 2019-06-17 21:22 | Hospitalist Progress Note ---
Date of Service June 17, 2019 Assessment & Plan (1) Altered mental status: Presented with confusion. No acute neuro event per CT or MRI. EEG normal. Altered mental status most likely secondary to severe hypothyroidism. Hypoglycemia may have been contributing factor. (2) Hypothyroidism: History of hypothyroidism, prescribed replacement with levothyroxine 200 mcg daily. TSH 110. Free T4 0.29. Last TSH in clinic was 22 on 04/22/18. Patient states that she has not been taking her levothyroxine, but not sure why or when she stopped it. Serum cortisol 10. Received IV levothyroxine admission. May be able to tolerate full dose of replacement, but has history of CAD. Probably prudent to replace initially with 1/2 dose of 100 mcg daily and titrate to full dose as tolerated. (3) Diabetes mellitus type 2 with complications: DM type 2 managed with Levemir and NovoLog. Glucose as low as 65 in ED. May have been experiencing hypoglycemia due to prolonged half life of insulin from hypothyroidism. FBS today = 183. Titrate insulin dosing. (4) Coronary artery disease: History of CAD, s/p PCI. No anginal symptoms. Continue aspirin, clopidogrel, carvedilol, statin. (5) Hypertension: Blood pressures fluctuating. Follow and titrate Rx. (6) Acute kidney injury: History of CKD IV with baseline creatinine of 2.3 04/22/18. ? more recent labs. Creatinine at time of admission 3.24. Holding furosemide. Received IV fluids. Creatinine today = 2.57. Follow. Outpatient follow-up with Nephrology. (7) CKD (chronic kidney disease), stage IV: As discussed above. (8) Dyslipidemia: Continue atorvastatin. Decrease dose temporarily due to severe hypothyroidism. (9) Fall: Fall at home. Underlying etiologies may have been related to weakness from hypothyroidism, hypoglycemia, orthostasis. No acute findings on neuroimaging of head by CT and MRI. EEG normal. No significant arrhythmias on telemetry. PT / OT evaluations. Fall precautions. (10) DVT prophylaxis: SCD's. Ambulate. (11) Discharge planning issues: PT / OT evaluations. May need skilled care or rehab. Internal Medicine follow-up with Dr. Hennessy. Subjective Recheck for multiple problems. Patient seen in their room around 1830. Feels better. No syncopal events. Telemetry data reviewed- SB 50's / SR 60's, no significant arrhythmias. Ambulated with PT. Review of Systems: Constitutional- no fever. Cardiac- no chest pain. Pulmonary- no cough or SOB. GI- mild indigestion; no nausea, vomiting, diarrhea, melena, hematochezia. - no urinary symptoms. Otherwise, as noted above. Physical Exam Constitutional: no acute distress Respiratory: no respiratory distress Auscultation: lungs clear to auscultation bilaterally Cardiovascular: Rate/Rhythm: regular rate and regular rhythm Heart Sounds: no gallop, no murmur and no cardiac rub Vessels: no JVD Extremities: no calf tenderness and no edema Gastrointestinal (Abdomen): normal bowel sounds, soft, nontender, no hepatosplenomegaly Skin: no rashes, warm and dry Psychiatric: Orientation: alert and oriented x 3 Results & Data Vital Signs (Past 12 Hours) Vital Signs Temp Pulse Pulse Resp BP Pulse Ox 06/17/19 20:00 36.8 C 63 18 178/61 H 97 06/17/19 16:00 36.9 C 62 18 187/65 H 99 Laboratory Results 06/16/19 05:37 06/17/19 07:33 (1) Hypothyroidism Hypothyroidism type: unspecified Qualified Code(s): E03.9 - Hypothyroidism, unspecified
[2019-06-17] MEDS: NYSTATIN POWDER 15GM BTL EXT PRN (21:30)
[2019-06-18] MEDS: LEVOTHYROXINE SODIUM 100 MCG TABLET PO SCH (05:47)
[2019-06-18] MEDS: ATORVASTATIN 10 MG TAB PO SCH (07:53)
[2019-06-18] MEDS: carvediloL 12.5 MG TAB PO SCH (07:53)
[2019-06-18] MEDS: PANTOprazole 40 MG TAB PO SCH (07:53)
[2019-06-18] MEDS: CLOPIDOGREL BISULFATE 75 MG TAB PO SCH (07:53)
[2019-06-18] MEDS: AMLODIPINE BESYLATE 5 MG TAB PO SCH (07:53)
[2019-06-18] MEDS: ASPIRIN 81 MG ECTAB PO SCH (07:54)
[2019-06-18 08:01] LABS: BUN Creatinine Ratio 12.3 (10-20); Calcium 8.2 mg/dl (8.5-10.1); Est GFR (African American) 23.7; Est GFR (Non-African American) 20.5; Potassium 4.4 mmol/L (3.5-5.1)
[2019-06-18] MEDS: INSULIN ASPART 100 UNITS/ML 3 ML PEN SC SCH ×4 (08:51→20:16)
[2019-06-18] MEDS: ROPINIROLE HCL 0.25 MG TABLET PO SCH (20:06)
[2019-06-18] MEDS: FLUTICASONE PROPIONATE NA SPR 16 GM BTL SCH (20:06)
[2019-06-18] MEDS: INSULIN GLARGINE SOLOSTAR 100 UNITS/ML 3 ML PEN SC SCH (20:13)
--- NOTE | 2019-06-18 21:25 | Hospitalist Progress Note ---
Date of Service June 18, 2019 Assessment & Plan (1) Altered mental status: Presented with confusion. No acute neuro event per CT or MRI. EEG normal. Altered mental status most likely secondary to severe hypothyroidism. Hypoglycemia may have been contributing factor. (2) Hypothyroidism: History of hypothyroidism, prescribed replacement with levothyroxine 200 mcg daily. TSH 110. Free T4 0.29. Last TSH in clinic was 22 on 04/22/18. Patient states that she has not been taking her levothyroxine, but not sure why or when she stopped it. Serum cortisol 10. Received IV levothyroxine admission. May be able to tolerate full dose of replacement, but has history of CAD. Prudent to replace initially with 1/2 dose of 100 mcg daily and titrate to full dose as tolerated. (3) Diabetes mellitus type 2 with complications: DM type 2 managed with Levemir and NovoLog. Glucose as low as 65 in ED. May have been experiencing hypoglycemia due to prolonged half life of insulin from hypothyroidism. FBS today = 148. Titrate insulin dosing. (4) Coronary artery disease: History of CAD, s/p PCI. No anginal symptoms. Continue aspirin, clopidogrel, carvedilol, statin. (5) Hypertension: Blood pressures fluctuating. Continue amlodipine, carvedilol, losartan. Added clonidine PRN. Follow and titrate Rx. (6) Acute kidney injury: History of CKD IV with baseline creatinine of 2.3 04/22/18. ? more recent labs. Creatinine at time of admission 3.24. Holding furosemide. Received IV fluids. Creatinine today = 2.43. Follow. Outpatient follow-up with Nephrology. (7) CKD (chronic kidney disease), stage IV: As discussed above. (8) Dyslipidemia: Continue atorvastatin. Decreased dose temporarily due to severe hypothyroidism. (9) Fall: Fall at home. Underlying etiologies may have been related to weakness from hypothyroidism, hypoglycemia, orthostasis. No acute findings on neuroimaging of head by CT and MRI. EEG normal. No significant arrhythmias on telemetry. PT / OT evaluations. Fall precautions. (10) DVT prophylaxis: SCD's. Ambulate. (11) Discharge planning issues: PT / OT evaluations. May need skilled care or rehab. Internal Medicine follow-up with Dr. Hennessy. Subjective Recheck for multiple problems. Patient seen in their room around 1100. Feels better. No syncopal events. Telemetry data reviewed- SR 60's, no significant arrhythmias. Had trouble tolerating CPAP last night. Review of Systems: Constitutional- no fever. Cardiac- no chest pain. Pulmonary- no cough or SOB. GI- no nausea, vomiting, diarrhea, melena, hematochezia. - no urinary symptoms. Otherwise, as noted above. Physical Exam Constitutional: no acute distress Respiratory: no respiratory distress Auscultation: lungs clear to auscultation bilaterally Cardiovascular: Rate/Rhythm: regular rate and regular rhythm Heart Sounds: no gallop, no murmur and no cardiac rub Vessels: no JVD Extremities: no calf tenderness and no edema Gastrointestinal (Abdomen): normal bowel sounds, soft, nontender, no hepatosplenomegaly Skin: no rashes, warm and dry Psychiatric: Orientation: alert and oriented x 3 Results & Data Vital Signs (Past 12 Hours) Vital Signs Temp Pulse Pulse Pulse Resp BP Pulse Ox 06/18/19 19:16 36.7 C 62 19 189/77 H 97 06/18/19 16:00 68 06/18/19 15:26 36.6 C 60 18 165/69 H 98 06/18/19 12:00 68 06/18/19 11:48 36.7 C 65 18 171/72 H 98 Laboratory Results 06/16/19 05:37 06/18/19 07:10 (1) Hypothyroidism Hypothyroidism type: unspecified Qualified Code(s): E03.9 - Hypothyroidism, unspecified
[2019-06-19] MEDS: LEVOTHYROXINE SODIUM 100 MCG TABLET PO SCH (06:13)
[2019-06-19] MEDS: AMLODIPINE BESYLATE 5 MG TAB PO SCH (07:39)
[2019-06-19] MEDS: ATORVASTATIN 10 MG TAB PO SCH (07:39)
[2019-06-19] MEDS: carvediloL 12.5 MG TAB PO SCH (07:39)
[2019-06-19] MEDS: PANTOprazole 40 MG TAB PO SCH (07:39)
[2019-06-19] MEDS: CLOPIDOGREL BISULFATE 75 MG TAB PO SCH (07:39)
[2019-06-19] MEDS: ASPIRIN 81 MG ECTAB PO SCH (07:40)
[2019-06-19 08:01] LABS: BUN Creatinine Ratio 12.1 (10-20); Calcium 8.4 mg/dl (8.5-10.1); Creatinine Clr Calc Pharmacy 31.4 ml/min; Est GFR (African American) 26.2; Est GFR (Non-African American) 22.6; Potassium 4.1 mmol/L (3.5-5.1)
[2019-06-19] MEDS: INSULIN ASPART 100 UNITS/ML 3 ML PEN SC SCH ×4 (08:29→20:28)
--- NOTE | 2019-06-19 14:22 | Hospitalist Progress Note ---
Date of Service June 19, 2019 Assessment & Plan (1) Altered mental status: Presented with confusion. No acute neuro event per CT or MRI. EEG normal. Altered mental status most likely secondary to severe hypothyroidism. Hypoglycemia may have been contributing factor. Decreased metabolism / increased levels of meds (sertraline, buproprion) due to hypothyroidism may have been contributing factor. (2) Hypothyroidism: History of hypothyroidism, prescribed replacement with levothyroxine 200 mcg daily. TSH 110. Free T4 0.29. Last TSH in clinic was 22 on 04/22/18. Patient states that she has not been taking her levothyroxine, but not sure why or when she stopped it. Serum cortisol 10. Received IV levothyroxine admission. May be able to tolerate full dose of replacement, but has history of CAD (and recent compliance with cardiac meds uncertain). Prudent to replace initially with 1/2 dose of 100 mcg daily and titrate to full dose as tolerated. (3) Diabetes mellitus type 2 with complications: DM type 2 managed with Levemir and NovoLog. Glucose as low as 65 in ED. May have been experiencing hypoglycemia due to prolonged half life of insulin from hypothyroidism. FBS today = 127. Titrate insulin dosing. (4) Coronary artery disease: History of CAD, s/p PCI. No anginal symptoms. Continue aspirin, clopidogrel, carvedilol, statin. (5) Hypertension: Blood pressures fluctuating. Uncertain compliance with BP meds at home. Continue amlodipine, carvedilol, losartan. Added clonidine PRN. Follow and titrate Rx. (6) Sleep apnea, obstructive: Does not tolerate CPAP well. Continue CPAP with encouragement. Check nocturnal pulse oximetry. (7) Acute kidney injury: History of CKD IV with baseline creatinine of 2.3 04/22/18. ? more recent labs. Creatinine at time of admission 3.24. Holding furosemide. Received IV fluids. Creatinine today = 2.24. Follow. Outpatient follow-up with Nephrology. (8) CKD (chronic kidney disease), stage IV: As discussed above. (9) Dyslipidemia: Continue atorvastatin. Decreased dose temporarily due to severe hypothyroidism. (10) Fall: Fall at home. Underlying etiologies may have been related to weakness from hypothyroidism, hypoglycemia, orthostasis. No acute findings on neuroimaging of head by CT and MRI. EEG normal. No significant arrhythmias on telemetry. PT / OT evaluations. Fall precautions. (11) Depression: History of depression. Prescribed sertraline and bupropion. Uncertain compliance. If she was taking them, levels may have been high due to decreased metabolism from hypothyroidism. Sertraline and bupropion held at time of admission. Resume sertraline at reduced dose of 50 mg daily. (12) DVT prophylaxis: SCD's. Ambulate. (13) Discharge planning issues: PT / OT evaluations. May need skilled care or rehab. Internal Medicine follow-up with Dr. Hennessy. Subjective Recheck for multiple problems. Patient seen in their room around 1020. Feels better. No syncopal events. Telemetry data reviewed- SB-SR 50's-60's, no significant arrhythmias. Had trouble tolerating CPAP. Having problems with restless legs. Review of Systems: Constitutional- no fever. Cardiac- no chest pain. Pulmonary- no cough or SOB. GI- no nausea, vomiting, diarrhea, melena, hematochezia. - no urinary symptoms. Otherwise, as noted above. Physical Exam Constitutional: no acute distress Respiratory: no respiratory distress Auscultation: lungs clear to auscultation bilaterally Cardiovascular: Rate/Rhythm: regular rate and regular rhythm Heart Sounds: no gallop, no murmur and no cardiac rub Vessels: no JVD Extremities: no calf tenderness and no edema Gastrointestinal (Abdomen): normal bowel sounds, soft, nontender, no hepatosplenomegaly Skin: no rashes, warm and dry Psychiatric: Orientation: alert and oriented x 3 Results & Data Vital Signs (Past 12 Hours) Vital Signs Temp Pulse Pulse Resp BP BP Pulse Ox 06/19/19 11:00 36.6 C 67 18 167/85 H 95 06/19/19 10:20 181/65 H 06/19/19 07:33 36.6 C 68 18 208/74 H 97 06/19/19 03:54 36.4 C L 65 18 192/75 H 97 Laboratory Results 06/16/19 05:37 06/19/19 07:03 (1) Hypothyroidism Hypothyroidism type: unspecified Qualified Code(s): E03.9 - Hypothyroidism, unspecified
[2019-06-19] MEDS: SERTRALINE HCL 50 MG TABLET PO SCH (15:54)
[2019-06-19] MEDS: cloNIDine HCL 0.1 MG TAB PO PRN (16:12)
[2019-06-19] MEDS: carvediloL 6.25 MG TAB PO SCH (20:26)
[2019-06-19] MEDS: ROPINIROLE HCL 0.25 MG TABLET PO SCH (20:26)
[2019-06-19] MEDS: FLUTICASONE PROPIONATE NA SPR 16 GM BTL SCH (20:26)
[2019-06-19] MEDS: NYSTATIN POWDER 15GM BTL EXT PRN (20:27)
[2019-06-19] MEDS: INSULIN GLARGINE SOLOSTAR 100 UNITS/ML 3 ML PEN SC SCH (20:29)
[2019-06-20] MEDS: cloNIDine HCL 0.1 MG TAB PO PRN (04:34)
[2019-06-20] MEDS: LEVOTHYROXINE SODIUM 100 MCG TABLET PO SCH (05:59)
[2019-06-20 07:22] LABS: BUN Creatinine Ratio 11.7 (10-20); Calcium 8.4 mg/dl (8.5-10.1); Creatinine Clr Calc Pharmacy 30.3 ml/min; Est GFR (African American) 25.1; Est GFR (Non-African American) 21.7; Potassium 4.5 mmol/L (3.5-5.1)
[2019-06-20] MEDS: PANTOprazole 40 MG TAB PO SCH (07:30)
[2019-06-20] MEDS: ASPIRIN 81 MG ECTAB PO SCH (07:30)
[2019-06-20] MEDS: CLOPIDOGREL BISULFATE 75 MG TAB PO SCH (07:31)
[2019-06-20] MEDS: carvediloL 6.25 MG TAB PO SCH ×2 (07:31→21:08)
[2019-06-20] MEDS: ATORVASTATIN 10 MG TAB PO SCH (07:31)
[2019-06-20] MEDS: AMLODIPINE BESYLATE 5 MG TAB PO SCH ×2 (07:31→21:06)
[2019-06-20 07:38] LABS: T4 Free Thyroxine 0.46 ng/dl (0.8-1.6)
[2019-06-20] MEDS: INSULIN ASPART 100 UNITS/ML 3 ML PEN SC SCH ×4 (08:29→21:07)
[2019-06-20] MEDS: SERTRALINE HCL 50 MG TABLET PO SCH (08:30)
--- NOTE | 2019-06-20 16:22 | Hospitalist Progress Note ---
Date of Service June 20, 2019 Assessment & Plan (1) Altered mental status: Presented with confusion. No acute neuro event per CT or MRI. EEG normal. Altered mental status most likely secondary to severe hypothyroidism. Hypoglycemia may have been contributing factor. Decreased metabolism / increased levels of meds (sertraline, buproprion) due to hypothyroidism may have been contributing factor. (2) Hypothyroidism: History of hypothyroidism, prescribed replacement with levothyroxine 200 mcg daily. TSH 110. Free T4 0.29. Last TSH in clinic was 22 on 04/22/18. Patient states that she has not been taking her levothyroxine, but not sure why or when she stopped it. Serum cortisol 10. Received IV levothyroxine admission. May be able to tolerate full dose of replacement, but has history of CAD (and recent compliance with cardiac meds uncertain). Prudent to replace initially with 1/2 dose of 100 mcg daily and titrate to full dose as tolerated. Free T4 0.29 --> 0.46 since admission, so it appears that she is absorbing oral therapy. Anticipate increasing dose to previous maintenance dose of 200 mcg daily at time of discharge. (3) Diabetes mellitus type 2 with complications: DM type 2 managed with Levemir and NovoLog. Glucose as low as 65 in ED. May have been experiencing hypoglycemia due to prolonged half life of insulin from hypothyroidism. FBS today = 144. Titrate insulin dosing. (4) Coronary artery disease: History of CAD, s/p PCI. No anginal symptoms. Continue aspirin, clopidogrel, carvedilol, statin. (5) Hypertension: Blood pressures fluctuating. Uncertain compliance with BP meds at home. Losartan was held at time of admission due to KRISTIAN. Carvedilol dose decreased to 6.25 mg BID because of bradycardia. Increase amlodipine to 5 mg BID. Add hydralazine. Clonidine PRN. Follow and titrate Rx. (6) Sleep apnea, obstructive: Does not tolerate CPAP well. Continue CPAP with encouragement. Nocturnal pulse oximetry showed O2 sats as low as 73% on RA. Supplemental O2 2 LPM (with or without CPAP). (7) Nocturnal hypoxia: Nocturnal pulse oximetry showed O2 sats as low as 73% on RA. Supplemental O2 2 LPM (with or without CPAP). (8) Acute kidney injury: History of CKD IV with baseline creatinine of 2.3 04/22/18. ? more recent labs. Creatinine at time of admission 3.24. Holding furosemide. Received IV fluids. Creatinine today = 2.32. Follow. Outpatient follow-up with Nephrology. (9) CKD (chronic kidney disease), stage IV: As discussed above. (10) Dyslipidemia: Continue atorvastatin. Decreased dose temporarily due to severe hypothyroidism. (11) Fall: Fall at home. Underlying etiologies may have been related to weakness from hypothyroidism, hypoglycemia, orthostasis. No acute findings on neuroimaging of head by CT and MRI. EEG normal. No significant arrhythmias on telemetry. PT / OT evaluations. Fall precautions. (12) Depression: History of depression. Prescribed sertraline and bupropion. Uncertain compliance. If she was taking them, levels may have been high due to decreased metabolism from hypothyroidism. Sertraline and bupropion held at time of admission. Resumed sertraline at reduced dose of 50 mg daily. (13) DVT prophylaxis: SCD's. Ambulate. (14) Discharge planning issues: PT / OT evaluations obtained. OT recommends inpatient rehab. Daughter Dena planning on having patient move to her home in [facility] once her acute needs are addressed here. Internal Medicine follow-up with Dr. Hennessy. Subjective Recheck for multiple problems. Patient seen in their room around 1010. Feels better. No syncopal events. Telemetry data reviewed- SB-SR, no significant arrhythmias. Review of Systems: Constitutional- no fever. Cardiac- no chest pain. Pulmonary- no cough or SOB. GI- no nausea, vomiting, diarrhea, melena, hematochezia. - no urinary symptoms. Otherwise, as noted above. Physical Exam Constitutional: no acute distress Respiratory: no respiratory distress Auscultation: lungs clear to auscultation bilaterally Cardiovascular: Rate/Rhythm: regular rate and regular rhythm Heart Sounds: no gallop, no murmur and no cardiac rub Vessels: no JVD Extremities: no calf tenderness and no edema Gastrointestinal (Abdomen): normal bowel sounds, soft, nontender, no hepatosplenomegaly Skin: no rashes, warm and dry Psychiatric: Orientation: alert and oriented x 3 Results & Data Vital Signs (Past 12 Hours) Vital Signs Temp Pulse Pulse Pulse Pulse Resp BP 06/20/19 15:38 36.6 C 66 18 06/20/19 15:11 65 06/20/19 11:33 36.9 C 56 L 18 06/20/19 10:11 66 150/78 H 06/20/19 07:32 36.4 C L 60 18 06/20/19 07:05 59 L 06/20/19 06:00 65 BP BP Pulse Ox 06/20/19 15:38 169/84 H 100 06/20/19 15:11 06/20/19 11:33 153/82 H 97 06/20/19 10:11 06/20/19 07:32 189/90 H 96 06/20/19 07:05 06/20/19 06:00 175/74 H Laboratory Results Laboratory Results - last 24 hr 06/19/19 06/19/19 06/20/19 16:16 20:27 06:35 Sodium 141 Potassium 4.5 Chloride 113 H Carbon Dioxide 24 Anion Gap 4.0 BUN 27 H Creatinine 2.32 H Est Cr Clr Drug Dosing 30.3 Est GFR ( Amer) 25.1 Est GFR (Non-Af Amer) 21.7 BUN/Creatinine Ratio 11.7 Glucose 158 H POC Glucose 158 H 134 H Calcium 8.4 L Free T4 0.46 L 06/20/19 06/20/19 07:33 11:28 Sodium Potassium Chloride Carbon Dioxide Anion Gap BUN Creatinine Est Cr Clr Drug Dosing Est GFR ( Amer) Est GFR (Non-Af Amer) BUN/Creatinine Ratio Glucose POC Glucose 144 H 260 H Calcium Free T4 (1) Hypothyroidism Hypothyroidism type: unspecified Qualified Code(s): E03.9 - Hypothyroidism, unspecified
[2019-06-20] MEDS: ROPINIROLE HCL 0.25 MG TABLET PO SCH (21:06)
[2019-06-20] MEDS: INSULIN GLARGINE SOLOSTAR 100 UNITS/ML 3 ML PEN SC SCH (21:07)
[2019-06-20] MEDS: FLUTICASONE PROPIONATE NA SPR 16 GM BTL SCH (21:08)
[2019-06-20] MEDS: HydrALAZINE 10 MG TAB PO SCH (21:08)
[2019-06-21] MEDS: LEVOTHYROXINE SODIUM 100 MCG TABLET PO SCH (05:47)
[2019-06-21 07:39] LABS: BUN Creatinine Ratio 12.8 (10-20); Calcium 8.7 mg/dl (8.5-10.1); Creatinine Clr Calc Pharmacy 30.9 ml/min; Est GFR (African American) 25.6; Est GFR (Non-African American) 22.1; Potassium 4.3 mmol/L (3.5-5.1)
[2019-06-21] MEDS: INSULIN ASPART 100 UNITS/ML 3 ML PEN SC SCH ×4 (08:28→20:20)
[2019-06-21] MEDS: carvediloL 6.25 MG TAB PO SCH ×2 (08:28→20:19)
[2019-06-21] MEDS: CLOPIDOGREL BISULFATE 75 MG TAB PO SCH (08:28)
[2019-06-21] MEDS: HydrALAZINE 10 MG TAB PO SCH ×3 (08:30→20:18)
[2019-06-21] MEDS: SERTRALINE HCL 50 MG TABLET PO SCH (08:31)
[2019-06-21] MEDS: PANTOprazole 40 MG TAB PO SCH (08:31)
[2019-06-21] MEDS: AMLODIPINE BESYLATE 5 MG TAB PO SCH ×2 (08:31→20:20)
[2019-06-21] MEDS: ATORVASTATIN 10 MG TAB PO SCH (08:31)
[2019-06-21] MEDS: ASPIRIN 81 MG ECTAB PO SCH (08:32)
--- NOTE | 2019-06-21 19:02 | Hospitalist Progress Note ---
Date of Service June 21, 2019 Assessment & Plan (1) Altered mental status: Presented with confusion. No acute neuro event per CT or MRI. EEG normal. Altered mental status most likely secondary to severe hypothyroidism. Hypoglycemia may have been contributing factor. Medications may have been contributing factors. (2) Hypothyroidism: History of hypothyroidism, prescribed replacement with levothyroxine 200 mcg daily. TSH 110. Free T4 0.29. Last TSH in clinic was 22 on 04/22/18. Patient states that she has not been taking her levothyroxine, but not sure why or when she stopped it. Serum cortisol 10. Received IV levothyroxine admission. May be able to tolerate full dose of replacement, but has history of CAD (and recent compliance with cardiac meds uncertain). Prudent to replace initially with 1/2 dose of 100 mcg daily and titrate to full dose as tolerated. Free T4 0.29 --> 0.46 since admission, so it appears that she is absorbing oral therapy. Anticipate increasing dose to previous maintenance dose of 200 mcg daily at time of discharge. (3) Diabetes mellitus type 2 with complications: DM type 2 managed with Levemir and NovoLog. Glucose as low as 65 in ED. May have been experiencing hypoglycemia due to prolonged half life of insulin from hypothyroidism. FBS today = 149. Titrate insulin dosing. (4) Coronary artery disease: History of CAD, s/p PCI. No anginal symptoms. Continue aspirin, clopidogrel, carvedilol, statin. (5) Hypertension: Blood pressures fluctuating. Uncertain compliance with BP meds at home. Losartan was held at time of admission due to KRISTIAN. Carvedilol dose decreased to 6.25 mg BID because of bradycardia. Increased amlodipine to 5 mg BID. Added hydralazine 10 mg TID. Clonidine PRN. Follow and titrate Rx. (6) Sleep apnea, obstructive: Does not tolerate CPAP well. Continue CPAP with encouragement. Nocturnal pulse oximetry showed O2 sats as low as 73% on RA. Supplemental O2 2 LPM (with or without CPAP). (7) Nocturnal hypoxia: Nocturnal pulse oximetry showed O2 sats as low as 73% on RA. Supplemental O2 2 LPM (with or without CPAP). (8) Acute kidney injury: History of CKD IV with baseline creatinine of 2.3 04/22/18. ? more recent labs. Creatinine at time of admission 3.24. Holding furosemide. Received IV fluids. Creatinine today = 2.28. Follow. Outpatient follow-up with Nephrology. (9) CKD (chronic kidney disease), stage IV: As discussed above. (10) Dyslipidemia: Continue atorvastatin. Decreased dose temporarily due to severe hypothyroidism. (11) Fall: Fall at home. Underlying etiologies may have been related to weakness from hypothyroidism, hypoglycemia, orthostasis. No acute findings on neuroimaging of head by CT and MRI. EEG normal. No significant arrhythmias on telemetry. PT / OT evaluations. Fall precautions. (12) Depression: History of depression. Prescribed sertraline and bupropion. Uncertain compliance. Sertraline and bupropion held at time of admission. Resumed sertraline at reduced dose of 50 mg daily. (13) DVT prophylaxis: SCD's. Ambulate. (14) Discharge planning issues: PT / OT evaluations obtained. OT recommends inpatient rehab. Daughter Dena planning on having patient move to her home in [facility] once her acute needs are addressed here. Internal Medicine follow-up with Dr. Hennessy. Subjective Recheck for multiple problems. Patient seen in their room around 1500. Feels better. No new problems. Tolerated O2 via NC last night. Telemetry data reviewed- SB-SR, no significant arrhythmias. Review of Systems: Constitutional- no fever. Cardiac- no chest pain. Pulmonary- no cough or SOB. GI- no nausea, vomiting, diarrhea, melena, hematochezia. - no urinary symptoms. Otherwise, as noted above. Physical Exam Constitutional: no acute distress Respiratory: no respiratory distress Auscultation: lungs clear to auscultation bilaterally Cardiovascular: Rate/Rhythm: regular rate and regular rhythm Heart Sounds: no gallop, no murmur and no cardiac rub Vessels: no JVD Extremities: no calf tenderness and no edema Gastrointestinal (Abdomen): normal bowel sounds, soft, nontender, no hepatosplenomegaly Skin: no rashes, warm and dry Psychiatric: Orientation: alert and oriented x 3 Results & Data Vital Signs (Past 12 Hours) Vital Signs Temp Pulse Pulse Resp BP Pulse Ox 06/21/19 15:05 36.6 C 61 19 165/86 H 96 06/21/19 10:58 36.8 C 57 L 20 136/69 99 06/21/19 07:40 55 L 06/21/19 07:22 36.5 C 60 20 185/83 H 99 Laboratory Results 06/16/19 05:37 06/21/19 06:55 (1) Hypothyroidism Hypothyroidism type: unspecified Qualified Code(s): E03.9 - Hypothyroidism, unspecified
[2019-06-21] MEDS: ROPINIROLE HCL 0.25 MG TABLET PO SCH (20:17)
[2019-06-21] MEDS: INSULIN GLARGINE SOLOSTAR 100 UNITS/ML 3 ML PEN SC SCH (20:19)
[2019-06-21] MEDS: FLUTICASONE PROPIONATE NA SPR 16 GM BTL SCH (20:19)
[2019-06-22] MEDS: LEVOTHYROXINE SODIUM 100 MCG TABLET PO SCH (06:07)
[2019-06-22] MEDS: AMLODIPINE BESYLATE 5 MG TAB PO SCH ×2 (08:01→20:53)
[2019-06-22] MEDS: HydrALAZINE 10 MG TAB PO SCH ×2 (08:01→14:13)
[2019-06-22] MEDS: carvediloL 6.25 MG TAB PO SCH (08:01)
[2019-06-22] MEDS: SERTRALINE HCL 50 MG TABLET PO SCH (08:02)
[2019-06-22] MEDS: ATORVASTATIN 10 MG TAB PO SCH (08:02)
[2019-06-22] MEDS: CLOPIDOGREL BISULFATE 75 MG TAB PO SCH (08:02)
[2019-06-22] MEDS: ASPIRIN 81 MG ECTAB PO SCH (08:02)
[2019-06-22] MEDS: PANTOprazole 40 MG TAB PO SCH (08:03)
[2019-06-22] MEDS: INSULIN ASPART 100 UNITS/ML 3 ML PEN SC SCH ×4 (08:04→20:55)
--- NOTE | 2019-06-22 20:45 | Hospitalist Progress Note ---
Date of Service June 22, 2019 Assessment & Plan (1) Altered mental status: Presented with confusion. No acute neuro event per CT or MRI. EEG normal. Altered mental status most likely secondary to severe hypothyroidism. Hypoglycemia may have been contributing factor. Medications may have been contributing factors. (2) Hypothyroidism: History of hypothyroidism, prescribed replacement with levothyroxine 200 mcg daily. TSH 110. Free T4 0.29. Last TSH in clinic was 22 on 04/22/18. Patient states that she has not been taking her levothyroxine, but not sure why or when she stopped it. Serum cortisol 10. Received IV levothyroxine admission. May be able to tolerate full dose of replacement, but has history of CAD (and recent compliance with cardiac meds uncertain). Prudent to replace initially with 1/2 dose of 100 mcg daily and titrate to full dose as tolerated. Free T4 0.29 --> 0.46 since admission, so it appears that she is absorbing oral therapy. Increase dose to previous maintenance dose of 200 mcg daily. (3) Diabetes mellitus type 2 with complications: DM type 2 managed with Levemir and NovoLog. Glucose as low as 65 in ED. Insulin dose adjusted; Lantus now 20 units HS. FBS today = 132. (4) Coronary artery disease: History of CAD, s/p PCI. No anginal symptoms. Continue aspirin, clopidogrel, carvedilol, statin. (5) Hypertension: Blood pressures fluctuating. Uncertain compliance with BP meds at home. Losartan was held at time of admission due to KRISTIAN. Carvedilol dose decreased to 6.25 mg BID because of bradycardia. Increased amlodipine to 5 mg BID. Added hydralazine 10 mg TID; increase to 25 mg TID. Resume previous carvedilol dose of 12.5 mg BID with hold parameters. Clonidine PRN. Follow and titrate Rx. (6) Sleep apnea, obstructive: Does not tolerate CPAP well. Continue CPAP with encouragement. Nocturnal pulse oximetry showed O2 sats as low as 73% on RA. Supplemental O2 2 LPM (with or without CPAP). (7) Nocturnal hypoxia: Nocturnal pulse oximetry showed O2 sats as low as 73% on RA. Supplemental O2 2 LPM (with or without CPAP). (8) Acute kidney injury: History of CKD IV with baseline creatinine of 2.3 04/22/18. ? more recent labs. Creatinine at time of admission 3.24. Holding furosemide. Received IV fluids. Creatinine 07/22 was 2.28. Follow. Outpatient follow-up with Nephrology. (9) CKD (chronic kidney disease), stage IV: As discussed above. (10) Dyslipidemia: Continue atorvastatin. Decreased dose temporarily due to severe hypothyroidism. (11) Fall: Fall at home. Underlying etiologies may have been related to weakness from hypothyroidism, hypoglycemia, orthostasis. No acute findings on neuroimaging of head by CT and MRI. EEG normal. No significant arrhythmias on telemetry. PT / OT evaluations. Fall precautions. (12) Depression: History of depression. Prescribed sertraline and bupropion. Uncertain compliance. Sertraline and bupropion held at time of admission. Resumed sertraline at reduced dose of 50 mg daily. (13) DVT prophylaxis: SCD's. No fall for several days- add enoxaparin. Ambulate. (14) Discharge planning issues: PT / OT evaluations obtained. OT recommends inpatient rehab. Daughter Dena planning on having patient move to her home in [facility] once her acute needs are addressed here. Internal Medicine follow-up with Dr. Hennessy. Subjective Recheck for multiple problems. Patient seen in their room around 1520. Doing well, but spending most of her time in bed. No arrhythmias noted. Review of Systems: Constitutional- no fever. Cardiac- no chest pain. Pulmonary- no cough or SOB. GI- no nausea, vomiting, diarrhea, melena, hematochezia. - no urinary symptoms. Otherwise, as noted above. Physical Exam Constitutional: no acute distress Respiratory: no respiratory distress Auscultation: lungs clear to auscultation bilaterally Cardiovascular: Rate/Rhythm: regular rate and regular rhythm Heart Sounds: no gallop, no murmur and no cardiac rub Vessels: no JVD Extremities: no calf tenderness and no edema Gastrointestinal (Abdomen): normal bowel sounds, soft, nontender, no hepatosplenomegaly Skin: no rashes, warm and dry Psychiatric: Orientation: alert and oriented x 3 Results & Data Vital Signs (Past 12 Hours) Vital Signs Temp Pulse Resp BP BP Pulse Ox 06/22/19 19:00 36.9 C 69 20 192/73 H 97 06/22/19 15:00 36.3 C L 63 20 172/69 H 97 06/22/19 11:33 36.5 C 93 H 20 161/82 H 90 06/22/19 10:06 75 172/70 H Laboratory Results 06/22/19 06/22/19 06/22/19 07:27 11:28 15:57 POC Glucose 132 H 234 H 184 H 06/22/19 19:55 POC Glucose 167 H (1) Hypothyroidism Hypothyroidism type: unspecified Qualified Code(s): E03.9 - Hypothyroidism, unspecified
[2019-06-22] MEDS: FLUTICASONE PROPIONATE NA SPR 16 GM BTL SCH (20:54)
[2019-06-22] MEDS: ROPINIROLE HCL 0.25 MG TABLET PO SCH (20:54)
[2019-06-22] MEDS: INSULIN GLARGINE SOLOSTAR 100 UNITS/ML 3 ML PEN SC SCH (20:55)
[2019-06-22] MEDS: carvediloL 12.5 MG TAB PO SCH (21:01)
[2019-06-23] MEDS: LEVOTHYROXINE SODIUM 200 MCG TABLET PO SCH (04:35)
[2019-06-23] MEDS: ENOXAPARIN INJ 30 MG/0.3 ML SYR SQ SCH (07:45)
[2019-06-23] MEDS: carvediloL 12.5 MG TAB PO SCH ×2 (07:46→20:37)
[2019-06-23] MEDS: CLOPIDOGREL BISULFATE 75 MG TAB PO SCH (07:46)
[2019-06-23] MEDS: AMLODIPINE BESYLATE 5 MG TAB PO SCH ×2 (07:47→20:37)
[2019-06-23] MEDS: SERTRALINE HCL 50 MG TABLET PO SCH (07:47)
[2019-06-23] MEDS: ASPIRIN 81 MG ECTAB PO SCH (07:47)
[2019-06-23] MEDS: ATORVASTATIN 10 MG TAB PO SCH (07:47)
[2019-06-23] MEDS: PANTOprazole 40 MG TAB PO SCH (07:48)
[2019-06-23] MEDS: INSULIN ASPART 100 UNITS/ML 3 ML PEN SC SCH ×4 (08:28→20:40)
[2019-06-23 08:31] LABS: Partial Thromboplastin Time 26.6 Seconds (21.0-31.0); Prothrombin Time 10.2 Seconds (9.0-12.0)
[2019-06-23 08:52] LABS: BUN Creatinine Ratio 13.7 (10-20); Calcium 9.3 mg/dl (8.5-10.1); Creatinine Clr Calc Pharmacy 28.7 ml/min; Est GFR (African American) 23.5; Est GFR (Non-African American) 20.3; Potassium 4.2 mmol/L (3.5-5.1)
--- NOTE | 2019-06-23 09:01 | Hospitalist Progress Note ---
Date of Service June 23, 2019 Assessment & Plan (1) Altered mental status: Presented with confusion. No acute neuro event per CT or MRI. EEG normal. Altered mental status most likely secondary to severe hypothyroidism. Hypoglycemia may have been contributing factor. Medications may have been contributing factors. (2) Hypothyroidism: History of hypothyroidism, prescribed replacement with levothyroxine 200 mcg daily. TSH 110. Free T4 0.29. Last TSH in clinic was 22 on 04/22/18. Patient states that she has not been taking her levothyroxine, but not sure why or when she stopped it. Serum cortisol 10. Received IV levothyroxine admission. May be able to tolerate full dose of replacement, but has history of CAD (and recent compliance with cardiac meds uncertain). Prudent to replace initially with 1/2 dose of 100 mcg daily and titrate to full dose as tolerated. Free T4 0.29 --> 0.46 since admission, so it appears that she is absorbing oral therapy. Increase dose to previous maintenance dose of 200 mcg daily. (3) Diabetes mellitus type 2 with complications: DM type 2 managed with Levemir and NovoLog. Glucose as low as 65 in ED. Insulin dose adjusted; Lantus now 17 units HS. FBS today = 118 (4) Coronary artery disease: History of CAD, s/p PCI. No anginal symptoms. Continue aspirin, clopidogrel, carvedilol, statin. (5) Hypertension: Blood pressures fluctuating. Uncertain compliance with BP meds at home. Losartan was held at time of admission due to KRISTIAN. Carvedilol dose decreased to 6.25 mg BID because of bradycardia. Increased amlodipine to 5 mg BID. Added hydralazine 10 mg TID; increase to 25 mg TID. Resume previous carvedilol dose of 12.5 mg BID with hold parameters. Clonidine PRN. Follow and titrate Rx. (6) Sleep apnea, obstructive: Does not tolerate CPAP well. Continue CPAP with encouragement. Nocturnal pulse oximetry showed O2 sats as low as 73% on RA. Supplemental O2 2 LPM (with or without CPAP). (7) Nocturnal hypoxia: Nocturnal pulse oximetry showed O2 sats as low as 73% on RA. Supplemental O2 2 LPM (with or without CPAP). (8) Acute kidney injury: History of CKD IV with baseline creatinine of 2.3 04/22/18. ? more recent labs. Creatinine at time of admission 3.24, then up to 3.4 Held furosemide. Received IV fluids. Creatinine 07/22 was 2.28, currently 2.45 (about baseline) - BP still poorly controlled, will give lasix 40 mg PO today Follow. Outpatient follow-up with Nephrology. (9) CKD (chronic kidney disease), stage IV: As discussed above. (10) Dyslipidemia: Continue atorvastatin. Decreased dose temporarily due to severe hypothyroidism. (11) Fall: Fall at home. Underlying etiologies may have been related to weakness from hypothyroidism, hypoglycemia, orthostasis. No acute findings on neuroimaging of head by CT and MRI. EEG normal. No significant arrhythmias on telemetry. PT / OT evaluations. Fall precautions. (12) Depression: History of depression. Prescribed sertraline and bupropion. Uncertain compliance. Sertraline and bupropion held at time of admission. Resumed sertraline at reduced dose of 50 mg daily. (13) DVT prophylaxis: SCD's. No fall for several days- add enoxaparin. Ambulate. (14) Discharge planning issues: PT / OT evaluations obtained. OT recommends inpatient rehab. Daughter Dena planning on having patient move to her home in [facility] once her acute needs are addressed here. Internal Medicine follow-up with Dr. Hennessy. Subjective Patient is lying in bed, in no acute distress, she is able to answer questions appropriately, she is oriented to place however when asked about date, she has to read it from the white board. Denies any fevers, chills, chest pain, shortness of breath, abdominal pain, nausea or vomiting. She cannot answer me why she was not taking her levothyroxine. She is also surprised about her elevated blood pressure here. Says she does not have a history of uncontrolled hypertension. Advised her to check her blood pressure at home, and keep a log. Review of Systems Review of Systems: All systems reviewed & are unremarkable except as noted in HPI & below Constitutional: no fever and no chills Respiratory: no cough and no dyspnea Cardiovascular: no chest pain and no palpitations Gastrointestinal: no abdominal pain, no nausea and no vomiting Physical Exam Physical Exam: Constitutional: Obese female, laying in bed, in no acute dis tress Respiratory: no respiratory distress Auscultation: lungs clear to auscultation bilaterally, no wheezing, rhonchi or crackles Cardiovascular: Rate/Rhythm: regular rate and regular rhythm Heart Sounds: no gallop, no murmur and no cardiac rub Vessels: no JVD Extremities: no calf tenderness and no edema Gastrointestinal (Abdomen): normal bowel sounds, soft, obese, nontender, nondistended MSK: Normocephalic and atraumatic, moves all 4 extremities spontaneously Skin: no rashes, warm and dry Neuro/Psychiatric: Orientation: alert and oriented x 3 (but reads date from the white board), no facial asymmetry, speech is slow but fluent, moves all 4 extremities spontaneously Results & Data Vital Signs (Past 12 Hours) Vital Signs Temp Pulse Pulse Resp BP BP Pulse Ox 06/23/19 07:12 36.7 C 63 20 174/86 H 99 06/23/19 03:27 68 06/23/19 03:19 36.8 C 67 21 175/71 H 99 06/22/19 23:21 36.8 C 62 20 188/64 H 99 Laboratory Results 06/23/19 06/23/19 06/23/19 Range/Units 08:00 08:00 07:14 PT 10.2 (9.0-12.0) Seconds INR 1.0 (0.9-1.1) APTT 26.6 (21.0-31.0) Seconds PTT Ratio 1.0 Sodium 141 (136-145) mmol/L Potassium 4.2 (3.5-5.1) mmol/L Chloride 110 H (98-107) mmol/L Carbon Dioxide 27 (21-32) mmol/L Anion Gap 4.0 (3-11) BUN 34 H (7-18) mg/dl Creatinine 2.45 H (0.6-1.2) mg/dl Est Cr Clr Drug Dosing 28.7 ml/min Est GFR ( Amer) 23.5 Est GFR (Non-Af Amer) 20.3 BUN/Creatinine Ratio 13.7 (10-20) Glucose 118 H (70-99) mg/dl POC Glucose 110 H (70-99) mg/dl Calcium 9.3 (8.5-10.1) mg/dl 06/22/19 06/22/19 06/22/19 Range/Units 19:55 15:57 11:28 PT (9.0-12.0) Seconds INR (0.9-1.1) APTT (21.0-31.0) Seconds PTT Ratio Sodium (136-145) mmol/L Potassium (3.5-5.1) mmol/L Chloride (98-107) mmol/L Carbon Dioxide (21-32) mmol/L Anion Gap (3-11) BUN (7-18) mg/dl Creatinine (0.6-1.2) mg/dl Est Cr Clr Drug Dosing ml/min Est GFR ( Amer) Est GFR (Non-Af Amer) BUN/Creatinine Ratio (10-20) Glucose (70-99) mg/dl POC Glucose 167 H 184 H 234 H (70-99) mg/dl Calcium (8.5-10.1) mg/dl Medications Administered Current Inpatient Medications Acetaminophen (Tylenol) 650 mg PO Q4H PRN PRN Reason: Pain or Fever Stop: 07/15/19 19:28 Amlodipine Besylate (Norvasc) 5 mg PO BID [facility] Stop: 07/20/19 20:59 Last Admin: 06/23/19 07:47 Dose: 5 mg Documented by: Aspirin (Ecotrin Ectab) 81 mg PO DAILY [facility] Stop: 07/16/19 08:59 Last Admin: 06/23/19 07:47 Dose: 81 mg Documented by: Atorvastatin Calcium (Lipitor) 10 mg PO QAM [facility] Stop: 07/17/19 08:59 Last Admin: 06/23/19 07:47 Dose: 10 mg Documented by: Carvedilol (Coreg) 12.5 mg PO BID [facility] Stop: 07/22/19 20:59 Last Admin: 06/23/19 07:46 Dose: 12.5 mg Documented by: Clonidine HCl (Catapres) 0.1 mg PO Q4H PRN PRN Reason: Blood Pressure - High Stop: 07/18/19 08:29 Last Admin: 06/20/19 04:34 Dose: 0.1 mg Documented by: Clopidogrel Bisulfate (Plavix) 75 mg PO DAILY [facility] Stop: 07/16/19 08:59 Last Admin: 06/23/19 07:46 Dose: 75 mg Documented by: Dextrose (Dextrose 50%) 25 - 50 ml IV UD PRN; Protocol PRN Reason: Hypoglycemia Protocol Stop: 07/16/19 20:29 Enoxaparin Sodium (Lovenox) 30 mg SQ DAILY [facility] Stop: 07/23/19 08:59 Last Admin: 06/23/19 07:45 Dose: 30 mg Documented by: Fluticasone Propionate (Flonase) 1 sprays NA HS [facility] Stop: 07/15/19 20:59 Last Admin: 06/22/19 20:54 Dose: 1 sprays Documented by: Glucagon (Glucagen) 1 mg IM UD PRN; Protocol PRN Reason: Hypoglycemia Protocol Stop: 07/16/19 20:29 Glucose (Glucose 40%) 15 - 30 gm PO UD PRN; Protocol PRN Reason: Hypoglycemia Protocol Stop: 07/16/19 20:29 Glucose (Dex4 Glucose) 4 - 8 tabs PO UD PRN; Protocol PRN Reason: Hypoglycemia Protocol Stop: 07/16/19 20:29 Hydralazine HCl (Apresoline) 25 mg PO TID [facility] Stop: 07/22/19 20:59 Last Admin: 06/23/19 07:46 Dose: 25 mg Documented by: Insulin Aspart (Novolog Flexpen) 0 units SC ACHS [facility] Stop: 07/16/19 20:59 Last Admin: 06/23/19 08:28 Dose: 7 units Documented by: Insulin Glargine (Lantus Solostar Pen) 20 units SC [facility] Stop: 07/21/19 20:59 Last Admin: 06/22/19 20:55 Dose: 20 units Documented by: Levothyroxine Sodium (Synthroid) 200 mcg PO DAILYBB [facility] Stop: 07/23/19 06:29 Last Admin: 06/23/19 04:35 Dose: 200 mcg Documented by: Miscellaneous (Carbohydrates For Hypoglycemia) 15 - 30 gm PO UD PRN PRN Reason: Hypoglycemia Treatment Stop: 07/16/19 20:29 Nystatin (Mycostatin) 1 appln EXT PRN PRN PRN Reason: Affected Skin Folds Stop: 07/16/19 20:11 Last Admin: 06/19/19 20:27 Dose: 1 appln Documented by: Ondansetron HCl (Zofran) 4 mg IV Q6H PRN PRN Reason: Nausea Stop: 07/15/19 19:28 Pantoprazole Sodium (Protonix) 40 mg PO QAM [facility] Stop: 07/15/19 19:44 Last Admin: 06/23/19 07:48 Dose: 40 mg Documented by: Ropinirole HCl (Requip) 0.5 mg PO HS [facility] Stop: 07/15/19 20:59 Last Admin: 06/22/19 20:54 Dose: 0.5 mg Documented by: Sertraline HCl (Zoloft) [facility] [place] Stop: 07/19/19 14:14 Last Admin: 06/23/19 07:47 Dose: 50 mg Documented by: (1) Hypothyroidism Hypothyroidism type: unspecified Qualified Code(s): E03.9 - Hypothyroidism, unspecified
[2019-06-23] MEDS: ROPINIROLE HCL 0.25 MG TABLET PO SCH (20:37)
[2019-06-23] MEDS: FLUTICASONE PROPIONATE NA SPR 16 GM BTL SCH (20:38)
[2019-06-23] MEDS: INSULIN GLARGINE SOLOSTAR 100 UNITS/ML 3 ML PEN SC SCH (20:39)
[2019-06-23] MEDS ORDERED: FUROSEMIDE 40 MG TAB PO STA (21:18)
[2019-06-24 06:07] LABS: Hematocrit (blood only) 31.5 % (37-47); Hemoglobin 10.2 g/dL (12.0-16.0); Mean Corpuscular Hemoglobin 27.6 pg (25-34); Mean Corpuscular Hgb Conc 32.4 g/dL (32-36); Mean Corpuscular Volume 85.1 fL (80-100); Mean Platelet Volume 10.2 fL (7.4-10.4); Platelet Count 284 K/uL (130-400); RDW Coefficient of Variation 15.2 % (11.5-14.5); White Blood Count 8.32 K/uL (4.8-10.8)
[2019-06-24] MEDS: LEVOTHYROXINE SODIUM 200 MCG TABLET PO SCH (06:41)
[2019-06-24 06:46] LABS: Calcium 8.8 mg/dl (8.5-10.1); Est GFR (African American) 23.7; Est GFR (Non-African American) 20.5; Magnesium 1.7 mg/dl (1.8-2.4); Potassium 4.1 mmol/L (3.5-5.1)
[2019-06-24] MEDS: ASPIRIN 81 MG ECTAB PO SCH (08:41)
[2019-06-24] MEDS: SERTRALINE HCL 50 MG TABLET PO SCH (08:41)
[2019-06-24] MEDS: PANTOprazole 40 MG TAB PO SCH (08:41)
[2019-06-24] MEDS: AMLODIPINE BESYLATE 5 MG TAB PO SCH ×2 (08:42→20:53)
[2019-06-24] MEDS: CLOPIDOGREL BISULFATE 75 MG TAB PO SCH (08:42)
[2019-06-24] MEDS: ATORVASTATIN 10 MG TAB PO SCH (08:42)
[2019-06-24] MEDS: carvediloL 12.5 MG TAB PO SCH ×2 (08:42→20:53)
[2019-06-24] MEDS: ENOXAPARIN INJ 30 MG/0.3 ML SYR SQ SCH (08:44)
[2019-06-24] MEDS: INSULIN ASPART 100 UNITS/ML 3 ML PEN SC SCH ×4 (09:45→20:54)
--- NOTE | 2019-06-24 19:28 | Hospitalist Progress Note ---
Date of Service June 24, 2019 Assessment & Plan (1) Altered mental status: Presented with confusion. No acute neuro event per CT or MRI. EEG normal. Altered mental status most likely secondary to severe hypothyroidism. Hypoglycemia may have been contributing factor. Medications may have been contributing factors. Clinically much improved, mental status seems to be back to baseline (2) Hypothyroidism: History of hypothyroidism, prescribed replacement with levothyroxine 200 mcg daily. TSH 110. Free T4 0.29. Last TSH in clinic was 22 on 04/22/18. Patient states that she has not been taking her levothyroxine, but not sure why or when she stopped it. Serum cortisol 10. Received IV levothyroxine admission. May be able to tolerate full dose of replacement, but has history of CAD (and recent compliance with cardiac meds uncertain). Prudent to replace initially with 1/2 dose of 100 mcg daily and titrate to full dose as tolerated. Free T4 0.29 --> 0.46 since admission, so it appears that she is absorbing oral therapy. Increased dose to previous maintenance dose of 200 mcg daily. Patient will need outpatient follow-up, and TSH check. (3) Diabetes mellitus type 2 with complications: DM type 2 managed with Levemir and NovoLog. Glucose as low as 65 in ED. Insulin dose adjusted; Lantus now 17 units HS. Hypomagnesemia - replace and monitor, goal Mg~2 Anemia - normocytic - stable - no signs of bleeding - possibly secondary to hypothyroidism and medications - will need outpt follow up and poss. work -up (4) Coronary artery disease: History of CAD, s/p PCI. No anginal symptoms. Continue aspirin, clopidogrel, carvedilol, statin. (5) Hypertension: Blood pressures fluctuating. Uncertain compliance with BP meds at home. Losartan was held at time of admission due to KRISTIAN. Carvedilol dose decreased to 6.25 mg BID because of bradycardia. Increased amlodipine to 5 mg BID. Added hydralazine 10 mg TID; increase to 25 mg TID. Resume previous carvedilol dose of 12.5 mg BID with hold parameters. Clonidine PRN. Restarted furosemide 40 mg twice daily as her renal function seems to be at baseline now We will also restart losartan at lower dose tomorrow morning (6) Sleep apnea, obstructive: Does not tolerate CPAP well. Continue CPAP with encouragement. Nocturnal pulse oximetry showed O2 sats as low as 73% on RA. Supplemental O2 2 LPM (with or without CPAP). (7) Nocturnal hypoxia: Nocturnal pulse oximetry showed O2 sats as low as 73% on RA. Supplemental O2 2 LPM (with or without CPAP). (8) Acute kidney injury: History of CKD IV with baseline creatinine of 2.3 04/22/18. ? more recent labs. Creatinine at time of admission 3.24, then up to 3.4 Held furosemide. Received IV fluids. Creatinine 07/22 was 2.28, currently 2.45 (about baseline) - BP still poorly controlled, restarted lasix Follow. Outpatient follow-up with Nephrology. (9) CKD (chronic kidney disease), stage IV: As discussed above. (10) Dyslipidemia: Continue atorvastatin. Decreased dose temporarily due to severe hypothyroidism. (11) Fall: Fall at home. Underlying etiologies may have been related to weakness from hypothyroidism, hypoglycemia, orthostasis. No acute findings on neuroimaging of head by CT and MRI. EEG normal. No significant arrhythmias on telemetry. PT / OT evaluations. Fall precautions. (12) Depression: History of depression. Prescribed sertraline and bupropion. Uncertain compliance. Sertraline and bupropion held at time of admission. Resumed sertraline at reduced dose of 50 mg daily. (13) DVT prophylaxis: SCD's. No fall for several days- add enoxaparin. Ambulate. (14) Discharge planning issues: PT / OT evaluations obtained. OT recommends inpatient rehab. Daughter Dena planning on having patient move to her home in [facility] once h er acute needs are addressed here. Internal Medicine follow-up with Dr. Hennessy. Subjective Patient is lying in bed, in no acute distress. Denies any fevers, chills, chest pain, shortness of breath, abdominal pain, nausea or vomiting. She is answering questions appropriately, she also tells me that her daughter is supposed to pick her up early in the morning, and she is wondering if she could be discharged at that time. Says she does not have a history of uncontrolled hypertension. I advised her to check her blood pressure at home, and keep a log. Review of Systems Review of Systems: All systems reviewed & are unremarkable except as noted in HPI & below Constitutional: no fever and no chills Respiratory: no cough and no dyspnea Cardiovascular: no chest pain and no palpitations Gastrointestinal: no abdominal pain, no nausea and no vomiting Physical Exam Physical Exam: Constitutional: Obese female, laying in bed, in no acute distress Respiratory: no respiratory distress Auscultation: lungs clear to auscultation bilaterally, no wheezing, rhonchi or crackles Cardiovascular: Rate/Rhythm: regular rate and regular rhythm Heart Sounds: no gallop, no murmur and no cardiac rub Vessels: no JVD Extremities: no calf tenderness and no edema Gastrointestinal (Abdomen): normal bowel sounds, soft, obese, nontender, nondistended MSK: Normocephalic and atraumatic, moves all 4 extremities spontaneously Skin: no rashes, warm and dry Neuro/Psychiatric: Orientation: alert and oriented x 3 (but reads date from the white board), no facial asymmetry, speech is slow but fluent, moves all 4 extremities spontaneously Results & Data ([facility]) Vital Signs (Past 12 Hours) Vital Signs Temp Pulse Pulse Resp BP BP Pulse Ox 06/24/19 19:25 36.9 C 67 18 175/54 H 98 06/24/19 15:45 37.0 C 62 18 179/71 H 96 06/24/19 15:40 58 L 06/24/19 11:29 36.6 C 69 18 185/79 H 95 Laboratory Results 06/24/19 06/24/19 06/24/19 Range/Units 16:43 11:24 07:40 WBC (4.8-10.8) K/uL RBC (4.2-5.4) M/uL Hgb (12.0-16.0) g/dL Hct (37-47) % MCV (80-100) fL MCH (25-34) pg MCHC (32-36) g/dL RDW Std Deviation (36.4-46.3) fL RDW Coeff of Kimberly (11.5-14.5) % Plt Count (130-400) K/uL MPV (7.4-10.4) fL Sodium (136-145) mmol/L Potassium (3.5-5.1) mmol/L Chloride (98-107) mmol/L Carbon Dioxide (21-32) mmol/L Anion Gap (3-11) BUN (7-18) mg/dl Creatinine (0.6-1.2) mg/dl Est Cr Clr Drug Dosing ml/min Est GFR ( Amer) Est GFR (Non-Af Amer) POC Glucose 157 H 172 H 142 H (70-99) mg/dl Fasting Glucose (70-99) mg/dl Calcium (8.5-10.1) mg/dl Magnesium (1.8-2.4) mg/dl 06/24/19 06/24/19 06/23/19 Range/Units 05:39 05:39 20:25 WBC 8.32 (4.8-10.8) K/uL RBC 3.70 L (4.2-5.4) M/uL Hgb 10.2 L (12.0-16.0) g/dL Hct 31.5 L (37-47) % MCV 85.1 (80-100) fL MCH 27.6 (25-34) pg MCHC 32.4 (32-36) g/dL RDW Std Deviation 47.0 H (36.4-46.3) fL RDW Coeff of Kimberly 15.2 H (11.5-14.5) % Plt Count 284 (130-400) K/uL MPV 10.2 (7.4-10.4) fL Sodium 141 (136-145) mmol/L Potassium 4.1 (3.5-5.1) mmol/L Chloride 109 H (98-107) mmol/L Carbon Dioxide 26 (21-32) mmol/L Anion Gap 6.0 (3-11) BUN 38 H (7-18) mg/dl Creatinine 2.43 H (0.6-1.2) mg/dl Est Cr Clr Drug Dosing 29.0 ml/min Est GFR ( Amer) 23.7 Est GFR (Non-Af Amer) 20.5 POC Glucose 158 H (70-99) mg/dl Fasting Glucose 143 H (70-99) mg/dl Calcium 8.8 (8.5-10.1) mg/dl Magnesium 1.7 L (1.8-2.4) mg/dl Medications Administered Current Inpatient Medications Acetaminophen (Tylenol) 650 mg PO Q4H PRN PRN Reason: Pain or Fever Stop: 07/15/19 19:28 Amlodipine Besylate (Norvasc) 5 mg PO BID MAR[facility] Stop: 07/20/19 20:59 Last Admin: 06/24/19 08:42 Dose: 5 mg Documented by: Aspirin (Ecotrin Ectab) 81 mg PO DAILY [facility] Stop: 07/16/19 08:59 Last Admin: 06/24/19 08:41 Dose: 81 mg Documented by: Atorvastatin Calcium (Lipitor) 10 mg PO QAM [facility] Stop: 07/17/19 08:59 Last Admin: 06/24/19 08:42 Dose: 10 mg Documented by: Carvedilol (Coreg) 12.5 mg PO BID [facility] Stop: 07/22/19 20:59 Last Admin: 06/24/19 08:42 Dose: 12.5 mg Documented by: Clonidine HCl (Catapres) 0.1 mg PO Q4H PRN PRN Reason: Blood Pressure - High Stop: 07/18/19 08:29 Last Admin: 06/20/19 04:34 Dose: 0.1 mg Documented by: Clopidogrel Bisulfate (Plavix) 75 mg PO DAILY [facility] Stop: 07/16/19 08:59 Last Admin: 06/24/19 08:42 Dose: 75 mg Documented by: Dextrose (Dextrose 50%) 25 - 50 ml IV UD PRN; Protocol PRN Reason: Hypoglycemia Protocol Stop: 07/16/19 20:29 Enoxaparin Sodium (Lovenox) 30 mg SQ DAILY [facility] Stop: 07/23/19 08:59 Last Admin: 06/24/19 08:44 Dose: 30 mg Documented by: Fluticasone Propionate (Flonase) 1 sprays NA HS [facility] Stop: 07/15/19 20:59 Last Admin: 06/23/19 20:38 Dose: 1 sprays Documented by: Furosemide (Lasix) 40 mg PO BID17 [facility] Stop: 07/25/19 08:59 Furosemide (Lasix) 40 mg PO NOW ONE Stop: 06/24/19 22:01 Glucagon (Glucagen) 1 mg IM UD PRN; Protocol PRN Reason: Hypoglycemia Protocol Stop: 07/16/19 20:29 Glucose (Glucose 40%) 15 - 30 gm PO UD PRN; Protocol PRN Reason: Hypoglycemia Protocol Stop: 07/16/19 20:29 Glucose (Dex4 Glucose) 4 - 8 tabs PO UD PRN; Protocol PRN Reason: Hypoglycemia Protocol Stop: 07/16/19 20:29 Hydralazine HCl (Apresoline) 25 mg PO TID [facility] Stop: 07/22/19 20:59 Last Admin: 06/24/19 12:51 Dose: 25 mg Documented by: Magnesium Sulfate/Dextrose (Magnesium Sulfate / D5w) 1 gm in 100 mls @ 100 mls/hr IV Q1H STA Stop: 06/24/19 20:22 Insulin Aspart (Novolog Flexpen) 0 units SC ACHS [facility] Stop: 07/16/19 20:59 Last Admin: 06/24/19 17:26 Dose: 6 units Documented by: Insulin Glargine (Lantus Solostar Pen) 17 units SC HS [facility] Stop: 07/23/19 20:59 Last Admin: 06/23/19 20:39 Dose: 17 units Documented by: Levothyroxine Sodium (Synthroid) 200 mcg PO DAILYBB [facility] Stop: 07/23/19 06:29 Last Admin: 06/24/19 06:41 Dose: 200 mcg Documented by: Miscellaneous (Carbohydrates For Hypoglycemia) 15 - 30 gm PO UD PRN PRN Reason: Hypoglycemia Treatment Stop: 07/16/19 20:29 Nystatin (Mycostatin) 1 appln EXT PRN PRN PRN Reason: Affected Skin Folds Stop: 07/16/19 20:11 Last Admin: 06/19/19 20:27 Dose: 1 appln Documented by: Ondansetron HCl (Zofran) 4 mg IV Q6H PRN PRN Reason: Nausea Stop: 07/15/19 19:28 Pantoprazole Sodium (Protonix) [facility] Stop[facility] 07/15/19 19:44 Last Admin: 06/24/19 08:41 Dose: 40 mg Documented by: Ropinirole HCl (Requip) 0.5 mg PO HS [facility] Stop: 07/15/19 20:59 Last Admin: 06/23/19 20:37 Dose: 0.5 mg Documented by: Sertraline HCl (Zoloft) 50 mg PO QAM [facility] Stop: 07/19/19 14:14 Last Admin: 06/24/19 08:41 Dose: 50 mg Documented by: (1) Hypothyroidism Hypothyroidism type: unspecified Qualified Code(s): E03.9 - Hypothyroidism, unspecified
[2019-06-24] MEDS: MAGNESIUM SULFATE / D5W 1 GM/100 ML BAG IV SCH ×2 (20:51→22:12)
[2019-06-24] MEDS: ROPINIROLE HCL 0.25 MG TABLET PO SCH (20:52)
[2019-06-24] MEDS: FLUTICASONE PROPIONATE NA SPR 16 GM BTL SCH (20:54)
[2019-06-24] MEDS: INSULIN GLARGINE SOLOSTAR 100 UNITS/ML 3 ML PEN SC SCH (20:56)
[2019-06-24] MEDS ORDERED: FUROSEMIDE 40 MG TAB PO ONE (22:00)
[2019-06-25] MEDS: LEVOTHYROXINE SODIUM 200 MCG TABLET PO SCH (05:43)
[2019-06-25 07:58] LABS: Calcium 8.8 mg/dl (8.5-10.1); Creatinine Clr Calc Pharmacy 26.4 ml/min; Est GFR (African American) 21.3; Est GFR (Non-African American) 18.4; Magnesium 2.3 mg/dl (1.8-2.4)
[2019-06-25] MEDS: PANTOprazole 40 MG TAB PO SCH (08:30)
[2019-06-25] MEDS: ATORVASTATIN 10 MG TAB PO SCH (08:30)
[2019-06-25] MEDS: ASPIRIN 81 MG ECTAB PO SCH (08:30)
[2019-06-25] MEDS: SERTRALINE HCL 50 MG TABLET PO SCH (08:30)
[2019-06-25] MEDS: AMLODIPINE BESYLATE 5 MG TAB PO SCH (08:30)
[2019-06-25] MEDS: CLOPIDOGREL BISULFATE 75 MG TAB PO SCH (08:31)
[2019-06-25] MEDS: INSULIN ASPART 100 UNITS/ML 3 ML PEN SC SCH (08:31)
[2019-06-25] MEDS: ENOXAPARIN INJ 30 MG/0.3 ML SYR SQ SCH (08:31)
[2019-06-25] MEDS: carvediloL 12.5 MG TAB PO SCH (08:31)
[2019-06-25] MEDS ORDERED: FUROSEMIDE 40 MG TAB PO SCH (09:00)
[2019-06-25] MEDS ORDERED: LOSARTAN POTASSIUM 25 MG TAB PO SCH (09:00)
--- NOTE | 2019-06-25 10:39 | Discharge Summary ---
Date of Service June 25, 2019 Admission HPI Per Admitting Provider 63-year-old female with history of coronary disease, diabetes type 2, hypertension, dyslipidemia, hypothyroidism, CKD stage IV No other problems noted below presenting with increased confusion times few days and a syncopal episode. Patient is a poor historian due to poor recall of events and mild confusion. Patient's history obtained mostly from patient's daughter Dena at the bedside. As per patient's daughter, they have noticed that for the past few weeks the patient has been having difficulty with short-term memory and Has been noted to be slower to process information. Family also suspects that the patient has not been taking her medications correctly. Last Friday, the patient called her daughter reporting to her that she had fallen while walking around the kitchen ,but does not recall the events leading up to the fall. She did report that she thinks that she might have bitten her tongue. Yesterday, the patient's daughter drove from [place] to the patient's house to check her mother. She noticed that the house was in disarray, and that the patient seemed to be even more confused, and slower to answer questions. Patient was brought to the primary care physician's office today and patient was recommended to be evaluated in the ER. At the ER, CT head did not show any acute CVA. Creatinine elevated at 3.2. Blood work revealed TSH of 110 and free T4 of 0.29. On my exam, the patient is seen sitting up in bed, alert, pleasant, oriented x3. She answers most questions appropriately but seems to have poor recall of the events over the weekend. She denies having any headache, chest pain, shortness of breath, abdominal pain, problems with urination or bowel movement. She does report feeling cold most of the time, no constipation. Primary Care Provider: Dennis Hennessy, DO Admission Exam Per Admitting Provider General- oriented x 3, somewhat weak but not in distress, speaks in sentences with no effort or accessory muscle use Obese Head- atraumatic Eyes- PERRL, EOMI, anicteric ENT- oropharynx clear Neck- supple, no JVD, no adenopathy, no thyromegaly; carotids +2/2, no bruits appreciated Lungs- clear to auscultation bilaterally, no rales/wheezes Heart- normal rate, regular rhythm; no murmur, no gallop, no rub appreciated Abdomen- normal bowel sounds, nondistended, soft, nontender, no masses or hepatosplenomegaly Extremities- no pretibial edema, no calf tenderness; peripheral pulses intact Positive hematoma on the right upper arm, left dorsal forearm Neuro- alert, oriented x 3; CN 2-12 grossly intact; motor 5/5 bilaterally;sensation 100% on all extremities; no other gross focal neurologic deficits Skin- warm & dry Principal Diagnosis Altered mental status most likely secondary to severe hypothyroidism Discharge Exam Constitutional: Obese female, sitting up in the chair, in no acute distress, on room air Respiratory: no respiratory distress Auscultation: lungs clear to auscultation bilaterally, no wheezing, rhonchi or crackles Cardiovascular: Rate/Rhythm: regular rate and regular rhythm Heart Sounds: no gallop, no murmur and no cardiac rub Vessels: no JVD Extremities: no calf tenderness and no edema Gastrointestinal (Abdomen): normal bowel sounds, soft, obese, nontender, nondistended MSK: Normocephalic and atraumatic, moves all 4 extremities spontaneously Skin: no rashes, warm and dry Neuro/Psychiatric: Orientation: alert and oriented x 3, no facial asymmetry, speech is slow but fluent, moves all 4 extremities spontaneously Discharge Data Allergies Allergy/AdvReac Type Severity Reaction Status Date / Time adhesive Allergy Unknown SKIN Verified 06/15/19 16:34 WELTS/PRURITIS metformin AdvReac Unknown DIARRHEA Verified 06/15/19 16:34 Consultations 06/15/19 16:15 ED Decision to Admit Stat Ordered Studies 06/15/19 14:58 CT head/brain wo con Stat 06/15/19 19:29 MR brain wo con Stat Hospital Course (1) Altered mental status: Presented with confusion. No acute neuro event per CT or MRI. EEG normal. Altered mental status most likely secondary to severe hypothyroidism. Hypoglycemia may have been contributing factor. Medications may have been contributing factors. Clinically much improved, mental status seems to be back to baseline (2) Hypothyroidism: History of hypothyroidism, prescribed replacement with levothyroxine 200 mcg daily. TSH 110. Free T4 0.29. Last TSH in clinic was 22 on 04/22/18. Patient states that she has not been taking her levothyroxine, but not sure why or when she stopped it. Serum cortisol 10. Received IV levothyroxine on admission. May be able to tolerate full dose of replacement, but has history of CAD (and recent compliance with cardiac meds uncertain). Prudent to replace initially with 1/2 dose of 100 mcg daily and titrate to full dose as tolerated. Free T4 0.29 --> 0.46 since admission, so it appears that she is absorbing oral therapy. Increased dose to previous maintenance dose of 200 mcg daily. Patient will need outpatient follow-up, and TSH check. (3) Diabetes mellitus type 2 with complications: DM type 2 managed with Levemir and NovoLog. Glucose as low as 65 in ED. Insulin dose adjusted; Lantus now 20 units HS. Plan to discharge on 20 units instead of 70 units Patient instructed to monitor her blood glucose levels at home, and will need follow-up with PCP Hypomagnesemia - replace and monitor, goal Mg~2 Anemia - normocytic - stable - no signs of bleeding - possibly secondary to hypothyroidism and medications - will need outpt follow up and poss. work -up (4) Coronary artery disease: History of CAD, s/p PCI. No anginal symptoms. Continue aspirin, clopidogrel, carvedilol, statin. (5) Hypertension: Blood pressures fluctuating. Uncertain compliance with BP meds at home. Losartan was held at time of admission due to KRISTIAN. Added hydralazine Resumed carvedilol dose of 12.5 mg BID with hold parameters. Continue amlodipine Restarted furosemide 40 mg twice daily as her renal function seems to be at baseline now We will also restart losartan at lower dose (6) Sleep apnea, obstructive: Does not tolerate CPAP well. Continue CPAP with encouragement. Nocturnal pulse oximetry showed O2 sats as low as 73% on RA. Supplemental O2 2 LPM (with or without CPAP). (7) Nocturnal hypoxia: Nocturnal pulse oximetry showed O2 sats as low as 73% on RA. Supplemental O2 2 LPM (with or without CPAP). Patient will need overnight pulse oximetry, prescription was given to her on discharge, CM coordinated (8) Acute kidney injury: History of CKD IV with baseline creatinine of 2.3 04/22/18. ? more recent labs. Creatinine at time of admission 3.24, then up to 3.4 Held furosemide. Received IV fluids. Creatinine 07/22 was 2.28, currently 2.45 (about baseline) - BP still poorly controlled, restarted lasix Follow. Outpatient follow-up with Nephrology. (9) CKD (chronic kidney disease), stage IV: As discussed above. (10) Dyslipidemia: Continue atorvastatin. Decreased dose temporarily due to severe hypothyroidism. (11) Fall: Fall at home. Underlying etiologies may have been related to weakness from hypothyroidism, hypoglycemia, orthostasis. No acute findings on neuroimaging of head by CT and MRI. EEG normal. No significant arrhythmias on telemetry. PT / OT evaluations. Fall precautions. (12) Depression: History of depression. Prescribed sertraline and bupropion. Uncertain compliance. Sertraline and bupropion held at time of admission. Resumed sertraline at reduced dose of 50 mg daily. (13) DVT prophylaxis: SCD's. No fall for several days- add enoxaparin. Ambulate. (14) Discharge planning issues: PT / OT evaluations obtained. OT recommends inpatient rehab. Daughter Dena planning on having patient move to her home in [facility] [facility] once her acute needs are addressed here. Internal Medicine follow-up with Dr. Hennessy. Total Time Total Time Spent Total Time Spent (In Minutes): 50 Total Time Includes: Examination of the Patient, Discharge Planning and Medication Reconciliation Discharge Plan Discharge Items Patient Disposition: Home - Self-Care Reason For Visit: ALTERED MENTAL STATUS Discharge Diagnosis: Altered mental status most likely secondary to severe hypothyroidism Activity: Resume your previous activity Activity Comment: as tolerated, pace yourself, ask for help as needed Non-emergency contact: Primary Care Provider Call non-emergency contact if: you have any medication questions and your symptoms worsen Follow-up/Referrals: Dennis Hennessy DO [Primary Care Provider] - 07/02/19 3:00 pm (07/02/2019 3:00 PM with Dennis Hennessy DO General Internal Medicine [facility] ) Diet: Carb Consistent or DM2 and Heart Healthy Ambulatory Orders: Basic Metabolic Panel (Routine) Timeframe: [id number] Location: Determined by Patient Ordered By: Avtar Marcos Attending Provider Instructions: Make sure to follow-up with your primary care provider on July 02. Make sure to take your levothyroxine, first thing in the morning, and wait at least half an hour before you eat or take any other medications. Check your blood pressure at home, and keep a log of these numbers. Bring this log to your primary care provider so your medications can be further adjusted. At this time, you should have a blood work done ([facility]) to monitor your kidney function. You will also need to follow-up with your bid manager. You will also need to have a blood work done to check your thyroid function in couple of weeks. You were diagnosed with nocturnal hypoxia (your oxygen goes down when you sleep), and so you will need to use supplemental oxygen. Please have overnight pulse oximetry study done as discussed. Prescription is given to you on discharge. You should use your CPAP for obstructive sleep apnea. Your insulin dose has been changed, use only 20 of Lantus (long-acting insulin), and continue using 12 units of Novolog (short-acting insulin) with meals. Check your blood sugar in the morning, before you eat and keep a log of these values. Also check your blood sugar at least once during the day besides director of anesthesia services. Make sure to bring these numbers to your primary care provider for further adjustment of your insulin. Bring all your medication bottles to your primary care doctor appointment, so it is clear what medications you are currently taking. As discussed, there were several medication changes done during your admission. Pending Studies at Discharge: No Stand-Alone Forms: My [facility] Cell-A-Spot, Smoking Cessation Medications and DC Order Prescriptions: New clopidogrel 75 mg Tablet 75 mg PO DAILY 10 Days Qty: 10 RF: 0 carvedilol 12.5 mg tablet 12.5 mg PO BID Qty: 20 RF: 0 losartan 50 mg tablet 50 mg PO DAILY Qty: 10 RF: 0 atorvastatin 10 mg Tablet 10 mg PO QAM 10 Days Qty: 10 RF: 0 hydralazine 25 mg Tablet 25 mg PO BID Qty: 20 RF: 0 aspirin [Ecotrin Low Strength] 81 mg Tablet,Delayed Release (Dr/Ec) 81 mg PO DAILY 30 Days Qty: 30 RF: 0 sertraline 50 mg Tablet 50 mg PO QAM 10 Days Qty: 10 RF: 0 nystatin [Nystop] 100,000 unit/gram Powder 1 applic EXT PRN PRN (Reason: rash in skin folds) Qty: 30 RF: 0 levothyroxine [Synthroid] 200 mcg Tablet 200 mcg PO DAILYBB 30 Days Qty: 30 RF: 0 Lantus Solostar U-100 Insulin 100 unit/mL (3 mL) Insulin Pen 20 units SC HS 10 Days Qty: 2 RF: 0 insulin aspart U-100 [Novolog Flexpen U-100 Insulin] 100 unit/mL (3 mL) Insulin Pen 12 units SC ACHS 10 Days Qty: 1.2 RF: 0 pantoprazole 40 mg Tablet,Delayed Release (Dr/Ec) 40 mg PO QAM 10 Days Qty: 10 RF: 0 fluticasone propionate 50 mcg/actuation [place],Suspension 1 spray NA HS Qty: 15.8 RF: 0 furosemide 40 mg Tablet 40 mg PO BID17 10 Days Qty: 20 RF: 0 ropinirole 0.25 mg Tablet 0.5 mg PO HS 10 Days Qty: 20 RF: 0 Continued furosemide 40 mg tablet 40 mg PO BID RF: 0 atorvastatin 40 mg tablet 40 mg PO DAILY RF: 0 carvedilol 12.5 mg tablet 12.5 mg PO BID RF: 0 clopidogrel 75 mg tablet 75 mg PO DAILY RF: 0 amlodipine 5 mg tablet 5 mg PO DAILY RF: 0 insulin aspart U-100 [Novolog Flexpen U-100 Insulin] 100 unit/mL (3 mL) insulin pen 12 unit SUBCUT AC RF: 0 Discontinued sertraline 100 mg tablet 100 mg PO DAILY RF: 0 omeprazole 40 mg capsule,delayed release(DR/EC) 40 mg PO DAILY RF: 0 aspirin 81 mg Tablet,Delayed Release (Dr/Ec) 81 mg PO DAILY RF: 0 ropinirole 0.25 mg tablet 0.5 mg PO HS RF: 0 levothyroxine 200 mcg tablet 200 mcg PO DAILY RF: 0 losartan 100 mg tablet 100 mg PO DAILY RF: 0 fluticasone propionate 50 mcg/actuation spray,suspension 1 spray INTRANASAL HS RF: 0 bupropion HCl 300 mg tablet extended release 24 hr 300 mg PO DAILY RF: 0 Levemir FlexTouch U-100 Insuln 100 unit/mL (3 mL) insulin pen 70 unit SUBCUT HS RF: 0 Discharge Orders: Discharge Order (Routine); Ordered 06/25/19 Ordered By: Avtar Chin Admission Data Admit Date/Time: 06/15/19 17:39 Attending Provider: Avtar Chin Admit Provider: Theo Mazariegos Primary Care Provider: Dennis Hennessy Other Providers: [employer] ; Ariella Brown [facility] ; [facility], ; Theo Mazariegos ; Edgar Johansen
== END 2019-06-25 11:45 | disposition home or self-care (01) | DRG 644 ==
LOC: ED 14:01 → 2S 17:39 → SUATTDRO 17:39 → 2S 18:57 → 2W 06-19 15:26